=== PATIENT | male | born 1940 | race Caucasian/White ===

== ENCOUNTER → 2017-04-20 | Outpatient (CLI) | payer OTHER ==
[~2017-04-20] MED LIST: AMLO10CA PO; AMOX500C3 PO; ASCA500 PO; CRS/10 PO; CYCL10TA6 PO; IBUP-103 PO; MULT-267 PO; MULT-599 PO; NAPR1TAB9 PO; OMEGCAP2 PO; OXYC1TAB3 PO; SENNTAB23 PO
== END | disposition home or self-care (01) ==
LOC: C.RDSM 09:00
PROVIDERS: ATTEND Physical Medicine & Rehabilitation Sports Medicine
DX: M25.569 Pain in unspecified knee (principal)

== ENCOUNTER 2017-06-28 08:42 | Emergency (ER) | payer OTHER ==
[~2017-06-28] VITALS: Ht 177.8 cm; Wt 94.2 kg
[~2017-06-28 08:42] MED LIST changes: -AMOX500C3 PO; -ASCA500 PO; -CYCL10TA6 PO; -MULT-599 PO; -OXYC1TAB3 PO; -SENNTAB23 PO
[2017-06-28 08:45] VITALS: TEMP 36.5; Ht 177.8 cm; Wt 94.2 kg
[2017-06-28] MEDS ORDERED: KETOROLAC TROMETHAMINE 60 MG/2 ML VIAL IM STA (09:10)
[2017-06-28] MEDS ORDERED: HYDROmorphone INJ 1 MG/ML SYR IM STA (09:10)
[2017-06-28] MEDS ORDERED: ONDANSETRON 4MG OD TAB PO STA (09:10)
[2017-06-28] MEDS ORDERED: DIAZEPAM 5MG TAB PO ONE (09:15)
[2017-06-28] MEDS ORDERED: MULT-599 PO (09:39)
--- NOTE | 2017-06-28 10:22 | DIAGNOSTIC IMAGING REPORT ---
LUMBAR SPINE 5 VIEWS HISTORY: LOW BACK PAIN X 3 DAYS COMPARISON: None. FINDINGS: There is no fracture. No subluxation. There is a 6 mm stone within the lower pole the left kidney. Left total hip arthroplasty. The sacrum appears intact. Moderate to severe facet degenerative changes within the lumbar spine. Vertebral body heights are maintained. Severe disc space narrowing at L1-L2. Mild disc space narrowing at L2-L3 and moderate to space narrowing at L3-L4. Small endplate osteophytes within the lumbar spine. IMPRESSION: No fracture or subluxation within the lumbar spine. Degenerative changes as described above. Electronically signed by: Best Herman M.D. 06/28/2017 10:21 AM Dictated Date/Time: 06/28/2017 10:19 AM
[2017-06-28] MEDS ORDERED: OXYC1TAB3 PO (10:51)
[2017-06-28] MEDS ORDERED: CYCL10TA6 PO (10:51)
--- NOTE | 2017-06-28 10:51 | EMERGENCY ROOM VISIT NOTE ---
ED Visit Note First contact with patient: 08:54 CHIEF COMPLAINT: Low back pain 2 days HISTORY OF PRESENT ILLNESS: Patient is a 76-year-old white male who presents to the emergency department accompanied by his for evaluation of low back pain. His symptoms started 2 days ago, when he woke up with pain on Thursday. He has a history of his "back going out," and states that he sees a massage therapist and a chiropractor when this happens. He was seen by Dr. Joy, his chiropractor, that day, with a typical adjustment. He felt only slightly better after the appointment, and states that he rested for the remainder of the day. Yesterday when he woke up, his symptoms were worse, and he again went into see the chiropractor who adjusted him, and did some Obie. The patient reports that he has been taking Aleve, applied ice and heat per the chiropractor 's instructions, however his pain is worse this morning. He had leftover Mobic which she also took. He states the pain is located in the band across his entire low back, wrapping around to the hips slightly bilaterally. There is no pain into the buttock or groin, no numbness, tingling or weakness radiating down the legs. He denies any bowel or bladder incontinence. He has been golfing frequently, but denies any specific injury. He has not had any direct trauma to the back. He denies any nausea, vomiting or abdominal/flank pain or urinary symptoms. He rates his pain an 8/10. REVIEW OF SYSTEMS: Review of systems as per HPI. All other systems reviewed were negative. 10 systems reviewed. PMH: Electronic medical records are reviewed and summarized as above/below. See Problem List.. SOCIAL HISTORY: Patient lives at home with his . PHYSICAL EXAM: Vital Signs: Reviewed Nurse's notes. CONSTITUTIONAL: Patient is who is awake and alert and sitting on the edge gurney in mild distress due to their back pain. There is significant discomfort with position changes. NECK: Supple without lymphadenopathy. No thyromegaly. No meningeal signs. Full active range of motion without discomfort. CARDIOVASCULAR: Regular rate and rhythm, with normal S1 and S2, no murmur or gallop or rub is heard. No carotid bruits auscultated. No JVD. Peripheral pulses easily palpable. RESPIRATORY: Breath sounds equal and clear to auscultation without wheezes, rales, or rhonchi heard. Full and equal chest expansion without accessory muscle use or retractions. ABDOMEN: Bowel sounds are present. Abdomen is soft, nontender and nondistended. INTEGUMENTARY: No lesions or rash, normal skin turgor. LYMPH: No lymphadenopathy. SPINE: Examination of the patient's back does not demonstrate any ecchymosis, abrasions or outward signs of trauma. No erythema, increased warmth or induration. Patient has slight midline discomfort to palpation over the low lumbar spine, as well as over the bilateral paraspinous muscles. There is no pain over the SI joint or the sciatic notch. He has increased pain with range of motion including rotation and flexion. EXTREMITIES: Leg lengths are symmetrical. Negative logroll bilaterally. Normal strength including dorsi-flexion and plantar flexion of the great toes and ankles and flexion and extension of the knees and flexion of the hips. Negative bilateral straight leg raise testing. Lower extremity DTRs are equal and symmetrical bilaterally. Distal pulses are easily palpable. Sensation light touch is intact over the lower extremities bilaterally. EMERGENCY DEPARTMENT COURSE: The patient was seen and assessed as above. His old records were reviewed. He was medicated with 60 mg of Toradol and 1 mg of Dilaudid IM with Zofran 4 mg ODT and Valium 10 mg by mouth. Lumbar spine x- rays were obtained, which showed degenerative changes. No acute fracture or bony abnormality. On reassessment, the patient reported that he felt much improved. On reassessment at discharge he rated his pain a 2/10. Conservative care measures were discussed. The patient was encouraged to rest and avoid golf and any strenuous activity for the next couple of days. Continue ice and heat as instructed by the chiropractor. He was given oxycodone and Flexeril to use as needed, and was encouraged to continue an anti-inflammatory medicine. He has appointment with his chiropractor tomorrow and was encouraged to keep this for recheck. MEDICAL DECISION MAKING: I do not suspect acute compression syndrome, cauda equina, diskitis, epidural abscess, hematoma or neurovascular compromise. Patient was reviewed in the [facility] Prescription Drug Monitoring Program, and there were no red flags noted. Blood pressure screening: Patient was found to have a slightly elevated blood pressure due to circumstances. I do not believe that the patient requires hypertension monitoring. Medication reconciliation: I attest that I have personally reviewed the patient' s current medication list. LUMBAR SPINE 5 VIEWS HISTORY: LOW BACK PAIN X 3 DAYS COMPARISON: None. FINDINGS: There is no fracture. No subluxation. There is a 6 mm stone within the lower pole the left kidney. Left total hip arthroplasty. The sacrum appears intact. Moderate to severe facet degenerative changes within the lumbar spine. Vertebral body heights are maintained. Severe disc space narrowing at L1-L2. Mild disc space narrowing at L2-L3 and moderate to space narrowing at L3-L4. Small endplate osteophytes within the lumbar spine. IMPRESSION: No fracture or subluxation within the lumbar spine. Degenerative changes as described above. Problem List Medical Problems: (1) Abscess Status: Resolved (2) HTN (hypertension) Status: Chronic (3) Hyperlipidemia Nec/Nos Status: Chronic (4) Left shoulder pain Status: Resolved (5) Left shoulder pain Status: Resolved (6) PVC (premature ventricular contraction) Status: Resolved (7) PVC (premature ventricular contraction) Status: Resolved (8) Scrotal abscess Status: Resolved Surgical Problems: (1) Knee Joint Replacement Status Status: Resolved Current/Historical Medications Scheduled Amlodipine/Benazepril (Lotrel 10MG/20MG), 1 CAP PO DAILY Multiple Vitamins W/ Minerals (Mens 50+ Multi Vitamin &), 1 TAB PO DAILY [place]-3 Fatty Acids (Fish Oil), 1 CAP PO DAILY Rosuvastatin Calcium (Crestor), 10 MG PO Q2D Scheduled PRN Cyclobenzaprine Hcl (Flexeril), 10 MG PO TID PRN for Muscle Spasms Ibuprofen Tab (Advil), 200-400 MG PO Q6H PRN for Pain Naproxen (Aleve), 440 MG PO UD PRN for Pain Oxycodone Immediate Rel Tab (Roxicodone Ir), 1-2 TAB PO Q4H PRN for Severe Pain Allergies Coded Allergies: No Known Allergies (Verified , 06/28/17) Vital Signs Date Time Temp Pulse Resp B/P (MAP) Pulse Ox O2 Delivery O2 Flow Rate FiO2 06/28/17 11:03 90 16 150/92 93 06/28/17 08:45 36.5 60 20 163/92 98 Room Air Medications Administered Medications (Trade) Dose Ordered Sig/Yuan Route Start Time Stop Time Status Last Admin Dose Admin Ketorolac Tromethamine (Toradol Inj) 60 mg NOW STAT IM 06/28/17 09:10 06/28/17 09:12 DC 06/28/17 09:21 60 MG Hydromorphone HCl (Dilaudid Inj) 1 mg NOW STAT IM 06/28/17 09:10 06/28/17 09:12 DC 06/28/17 09:21 1 MG Ondansetron HCl (Zofran Odt) 4 mg NOW STAT PO 06/28/17 09:10 06/28/17 09:12 DC 06/28/17 09:20 4 MG Diazepam (Valium Tab) 10 mg NOW ONCE PO 06/28/17 09:15 06/28/17 09:16 DC 06/28/17 09:22 10 MG Departure Information Impression Primary Impression: Low back pain Prescriptions Oxycodone Immediate Rel Tab (ROXICODONE IR) 5 Mg Tab 1-2 TAB PO Q4H Y for Severe Pain, #20 TAB For Initial Treatment Prov: Concepción Stanley PA 06/28/17 Cyclobenzaprine Hcl (FLEXERIL) 10 Mg Tab 10 MG PO TID Y for Muscle Spasms, #30 TAB Prov: Conecpción Stanley PA 06/28/17 Referrals Ab Zee M.D. (PCP) Patient Instructions My [facility] Additional Instructions DO NOT drive, drink alcohol, operate machinery, or perform dangerous activities today. You were given medications in the ER that can affect your ability to safely function or operate a vehicle. Oxycodone (OxyIR) 5mg: Take 1-2 pills every four hours for breakthrough pain. Avoid alcohol, operating machinery or dangerous equipment, working on ladders or roofs, DRIVING, or situations where being under the influence may be dangerous. It is recommended to use an [id number] stool softener such as Colace, 100mg twice daily while taking this medication to avoid constipation. Cyclobenzaprine (Flexeril) 10 mg: Take 1 pills 3 times daily as needed for muscle spasms.. Avoid alcohol, operating machinery or dangerous equipment, working on ladders or roofs, DRIVING, or situations where being under the influence may be dangerous. Ibuprofen(Motrin, Advil) may be used for fever or pain. Use 600mg every six hours as needed. Take with food. Avoid using more than 2400mg in a 24 hour period. Do not use 2400mg per day for more than three consecutive days without physician direction. Prolonged inappropriate use can lead to stomach upset or ulcers. This medication can be taken if you need to drive, work, or perform activities which may be dangerous when taking narcotic pain medication. (AND/OR) Acetaminophen(Tylenol) may be used for fever or pain. Use 1000mg every six hours as needed. Avoid using more than 3000mg in a 24 hour period. This medication can be taken if you need to drive, work, or perform activities which may be dangerous when taking narcotic pain medication. Rest and avoid heavy lifting until your symptoms resolve and then gradually return to full activity. A good rule of thumb is if it hurts your back to perform a certain activity, then it should be avoided until you are healthy again. A heating pad, warm compresses, or a hot shower may help with tight muscles and can be done several times a day as needed. Continue current medications. Return to the ER immediately for any numbness, tingling, severe pain, loss of control of your bowels or bladder, inability to walk, or as needed. Follow up with your primary care physician within 3-5 days for a recheck of your current condition. Problem Qualifiers Primary Impression: Low back pain Chronicity: acute Back pain laterality: bilateral Sciatica presence: without sciatica Qualified Codes: M54.5 - Low back pain
[2017-06-28 11:03] VITALS: BP 150/92; PULSE 90; O2SAT 93
--- NOTE | 2017-06-28 15:12 | EMERGENCY ROOM VISIT NOTE ---
ED Visit Note First contact with patient: 08:54 I have personally seen and evaluated the patient with the PA. I agree with the diagnosis and management decisions and have been personally involved in the case. Please see Zelda Stanley PA-C's notes for further details of the history , physical and visit.
== END 2017-06-28 11:03 | disposition home or self-care (01) ==
LOC: C.EDB 08:44
DX: M54.5 Low back pain (principal); I10 Essential (primary) hypertension; E78.5 Hyperlipidemia, unspecified; Z79.899 Other long term (current) drug therapy

== ENCOUNTER → 2017-09-18 | Outpatient (CLI) | payer OTHER ==
[~2017-09-18] VITALS: Ht 177.8 cm; Wt 94.0 kg
[~2017-09-18] MED LIST changes: +AMOX500C3 PO; +ASCA500 PO; -MULT-267 PO; +MULT-599 PO; +OXYC-57 PO; +OXYC-737 PO; +SENNTAB23 PO; +WARF2TAB PO
[2017-09-18 09:06] VITALS: Ht 177.8 cm; Wt 94.0 kg
--- NOTE | 2017-09-18 09:41 | PAT Medication Instructions ---
Service Date Sep 18, 2017. Current Home Medication List Amlodipine/Benazepril (Lotrel 10MG/20MG), 1 CAP PO QAM Amoxicillin (Amoxil), 2,000 MG PO UD PRN for pre dental Ascorbic Acid (Vitamin C), 1 TAB PO QAM Multiple Vitamins W/ Minerals (Mens 50+ Multi Vitamin &), 1 TAB PO QAM [place]-3 Fatty Acids (Fish Oil), 1 CAP PO QAM Rosuvastatin Calcium (Crestor), 10 MG PO Q2D Sennosides-Docusate Sodium (Stool Softener), 1 TAB PO QAM Medication Instructions For Your Scheduled Surgery -Continue as directed: Amoxicillin (Amoxil), 2,000 MG PO UD PRN for pre dental - Hold the following medications 2 weeks prior to surgery (STOP TAKING ON 09/30) : [place]-3 Fatty Acids (Fish Oil), 1 CAP PO QAM - Hold the following medications the morning of surgery: Sennosides-Docusate Sodium (Stool Softener), 1 TAB PO QAM Ascorbic Acid (Vitamin C), 1 TAB PO QAM Multiple Vitamins W/ Minerals (Mens 50+ Multi Vitamin &), 1 TAB PO QAM Amlodipine/Benazepril (Lotrel 10MG/20MG), 1 CAP PO QAM - Take the following medications the morning of surgery with a sip of water: Rosuvastatin Calcium (Crestor), 10 MG PO Q2D If you have any questions please call us at [phone] or [phone] or [phone]
--- NOTE | 2017-09-18 10:52 | DIAGNOSTIC IMAGING REPORT ---
CHEST PREADMISSION(PA/LAT) CLINICAL HISTORY: PAT preoperative evaluation COMPARISON STUDY: 07/09/2014 FINDINGS: Increased tortuosity thoracic aorta. Chronic interstitial change bilaterally. No focal infiltrate. Diaphragms smooth. IMPRESSION: Chronic change. No acute process. The above report was generated using voice recognition software. It may contain grammatical, syntax or spelling errors. Electronically signed by: Frank Stein M.D. 09/18/2017 10:50 AM Dictated Date/Time: 09/18/2017 10:50 AM
[2017-09-18 11:19] LABS: PTT PATIENT 29.3 SECONDS (21.0-31.0)
== END | disposition home or self-care (01) ==
LOC: C.LAB 08:00 → EDSTATUS 10-14 07:00
PROVIDERS: ATTEND Physical Medicine & Rehabilitation Sports Medicine
DX: Z01.810 Encounter for preprocedural cardiovascular examination (principal); Z01.811 Encounter for preprocedural respiratory examination; Z01.812 Encounter for preprocedural laboratory examination; I44.0 Atrioventricular block, first degree

== ENCOUNTER → 2017-10-07 | Outpatient (CLI) | payer OTHER ==
[~2017-10-07] MED LIST changes: -IBUP-103 PO; -NAPR1TAB9 PO; -OXYC-57 PO; -OXYC-737 PO; -WARF2TAB PO
[2017-10-07 10:14] LABS: BLOOD UREA NITROGEN 22 mg/dl (7-18); BUN/CREATININE RATIO 24.9 (10-20); CALCIUM 9.1 mg/dl (8.5-10.1); CARBON DIOXIDE 27 mmol/L (21-32); CHLORIDE 106 mmol/L (98-107); CREATININE 0.88 mg/dl (0.60-1.40); GLUCOSE 110 mg/dl (70-99); POTASSIUM 3.5 mmol/L (3.5-5.1); SODIUM 140 mmol/L (136-145)
[2017-10-07 10:19] LABS: ALKALINE PHOSPHATASE 100 U/L (45-117); ALT/SGPT 34 U/L (12-78); AST/SGOT 22 U/L (15-37)
== END | disposition home or self-care (01) ==
LOC: C.LAB 07:18
PROVIDERS: ATTEND Urology
DX: N40.1 Benign prostatic hyperplasia with lower urinary tract symptoms (principal)

== ENCOUNTER → 2017-11-30 | Outpatient (CLI) | payer OTHER ==
[~2017-11-30] MED LIST changes: +OPTIRAY 320 IV PRN
--- NOTE | 2017-11-30 09:43 | DIAGNOSTIC IMAGING REPORT ---
CT UROGRAM CLINICAL HISTORY: Renal cyst. Microscopic hematuria. COMPARISON STUDY: Abdominal CT dated 07/09/2014. TECHNIQUE: Before and following the IV administration of 119 cc of Optiray 320, CT urogram of the abdomen and pelvis is performed from the lung bases to the proximal femora. Images are reviewed in the axial, sagittal, and coronal planes. IV contrast was administered without complication. A dose lowering technique was utilized adhering to the principles of ALARA. FINDINGS: Lung bases: The heart is mildly enlarged and without pericardial effusion. The coronary arteries are densely calcified. There is bibasilar scarring versus atelectasis. No airspace consolidation or pleural effusion is identified. A calcific granuloma seen at the right lung base. Liver: The contrast-enhanced liver is normal in size, contour, and attenuation. There is no intrahepatic biliary ductal dilatation. The hepatic veins and portal veins are patent. Small hepatic cysts measure up to 1.7 cm. Additional subcentimeter hepatic hypodensities also likely represent cysts but are too small for definitive characterization. Gallbladder: Unremarkable. Spleen: Normal in size and attenuation. Pancreas: Unremarkable. Adrenal glands: Unremarkable. Kidneys and ureters: The contrast enhanced kidneys demonstrate mild cortical atrophy and are without hydronephrosis. There are least 3 nonobstructing right renal calculi measuring up to 2 mm. A 9 mm nonobstructing calculi is present in the interpolar left kidney. The kidneys enhance symmetrically. There is a large extrarenal pelvis on the left with slightly delayed excretion from the left kidney. There are numerous bilateral simple renal cysts which measure up to 4.8 cm. Additional subcentimeter cortical hypodensities also likely represent cysts but are too small for definitive characterization. There is no enhancing renal cortical mass lesion identified. There is no evidence of urothelial lesion in the right renal pelvis. There are small filling defects identified in the left renal pelvis, best seen on axial image #155. This suggests debris. There is no evidence of urothelial lesion involving the ureters. Note that the left ureter was not well opacified. Abdominal vasculature: The abdominal aorta is normal in course and caliber noting moderate to advanced atherosclerotic calcification. Bowel: There is moderate colonic diverticulosis without CT evidence of acute diverticulitis. No bowel obstruction is seen. The appendix is well-visualized and normal. Peritoneum: There is no intraperitoneal free air or abdominal ascites. There is a tiny fat-containing umbilical hernia. Lymphadenopathy: None. Pelvic viscera: Evaluation of the pelvis is degraded by streak artifact from a left hip arthroplasty. The prostate gland appears diminutive and heterogeneous. There is median lobe hypertrophy. The bladder wall is thickened and trabeculated suggesting chronic outlet obstruction. A punctate bladder calculus is suggested on image #380. Skeletal structures: The skeletal structures are osteopenic. No lytic or blastic lesions are seen. There is moderate lumbosacral spondylosis. A left hip arthroplasty is in place. IMPRESSION: 1. The kidneys demonstrate mild cortical atrophy and are without hydronephrosis. 2. There are bilateral nonobstructing renal calculi. 3. There is mild fullness of the left renal collecting system and a left-sided extrarenal pelvis. A calculus is identified in the bladder. These findings are nonspecific but may represent the sequelae of a recently passed kidney stone. Clinical correlation will be required. 4. No enhancing renal cortical mass is identified. 5. There are small filling defects within the left renal pelvis. This is nonspecific but likely represents debris/blood clots. A urothelial lesion is considered much less likely. A precautionary 3 month follow-up urogram is recommended for reassessment. 6. There is moderate colonic diverticulosis without CT evidence of acute diverticulitis. 7. There are numerous bilateral renal cysts. 8. There is median lobe hypertrophy of the prostate gland. The appearance of the bladder suggests chronic outlet obstruction. 9. Additional findings as above. Electronically signed by: Niraj Sheridan M.D. 11/30/2017 9:41 AM Dictated Date/Time: 11/30/2017 9:25 AM
== END | disposition home or self-care (01) ==
LOC: C.CTS 08:36
PROVIDERS: ATTEND Urology
DX: N28.1 Cyst of kidney, acquired (principal); R31.29 Other microscopic hematuria

== ENCOUNTER 2017-12-30 06:03 | Inpatient (IN) | payer OTHER ==
[2017-12-10 07:25] VITALS: Ht 177.8 cm; Wt 94.0 kg
[2017-12-11 12:06] LABS: BASO % 0.4 %; BASO ABS # 0.04 K/uL (0-0.2); EOS % 3.5 %; EOS ABS # 0.33 K/uL (0-0.5); HEMATOCRIT 42.1 % (42-52); HEMOGLOBIN 14.4 g/dL (14.0-18.0); IG# 0.03 K/uL (0.00-0.02); LYMPH % 21.6 %; LYMPH ABS # 2.02 K/uL (1.2-3.4); MEAN CELL VOLUME 88.8 fL (80-100); MEAN CORPUSCULAR HEMOGLOBIN 30.4 pg (25-34); MEAN CORPUSCULAR HGB CONC 34.2 g/dl (32-36); MEAN PLATELET VOLUME 9.7 fL (7.4-10.4); MONO % 10.4 %; MONO ABS # 0.97 K/uL (0.11-0.59); NEUT % 63.8 %; NEUT ABS # 5.96 K/uL (1.4-6.5); PLATELET COUNT 309 K/uL (130-400); RED CELL DISTRIBUTION WIDTH CV 14.8 % (11.5-14.5); RED CELL DISTRIBUTION WIDTH SD 48.1 fL (36.4-46.3); WHITE BLOOD COUNT 9.35 K/uL (4.8-10.8)
[2017-12-11 12:16] LABS: PTT PATIENT 25.6 SECONDS (21.0-31.0)
[2017-12-11 12:21] LABS: CALCIUM 9.6 mg/dl (8.5-10.1); CREATININE 0.88 mg/dl (0.60-1.40); POTASSIUM 3.8 mmol/L (3.5-5.1)
--- NOTE | 2017-12-14 16:00 | HISTORY & PHYSICAL EXAMINATION ---
DATE OF ADMISSION: 12/30/2017 CHIEF COMPLAINT: Right knee pain. HISTORY OF PRESENT ILLNESS: This 77-year-old white male presents to the office with complaints of right knee pain that has been ongoing since 2008. The patient had a previous right knee total knee arthroplasty and had a revision in 2008. He states that there has been persisting right knee instability and pain since then. He has never felt well since the revision. He has tried bracing, physical therapy and nonsteroidal anti-inflammatories without improvement. His main complaint is buckling and swelling. No numbness or tingling. He denies any history of infection. No fevers or chills. No weight loss. Radiographic imaging has been obtained. He elects to proceed with right total knee revision in hopes of alleviating his discomfort. Pain is worse with weightbearing and he is having difficulty with his ADLs. PAST MEDICAL HISTORY: Significant for elevated cholesterol, hypertension, rheumatoid arthritis and kidney stones. PREVIOUS SURGERIES: Left total hip replacement in 2009, bilateral total knee arthroplasties in 1995, left revision TKA in 2007, and right knee revision TKA in 2008. SOCIAL HISTORY: The patient smokes a pack of cigarettes daily for the last 60 years. Occasional ETOH use. . Retired. FAMILY HISTORY: Noncontributory. ALLERGIES: NKDA. CURRENT MEDICATIONS: Amlodipine/benazepril 10 mg/20 mg p.o. daily, amoxicillin before dental visits, and Crestor 10 mg p.o. daily. REVIEW OF SYSTEMS: Significant for above stated conditions. Otherwise, unremarkable. PHYSICAL EXAMINATION: GENERAL: Well-developed and well-nourished elderly white male in no acute distress. Sitting in a chair. Alert and oriented. SKIN: Warm and dry with good turgor. No rashes or lesions. No ecchymosis or erythema. No intraarticular effusion today. HEENT: Normocephalic and atraumatic. Eyes PERRLA, EOMI. Nares patent bilaterally without turbinate enlargement. Oropharynx is without erythema or exudate. No lesions noted. Uvula midline. Oral mucosa moist. Fair dentition. Dental bridges are noted. HEART: RRR. 3/6 systolic ejection murmur noted. No gallops or rubs. LUNGS: Clear to auscultation bilaterally. No crackles, rhonchi or wheezing. Good air movement. ABDOMEN: Bowel sounds present x4. Soft and nontender. No organomegaly. No masses. MUSCULOSKELETAL: Right knee has no intraarticular effusion today. There is neutral alignment. Full terminal extension. Flexion to greater than 125 degrees. Hypermobility with collateral ligament stressing. No defect in the patellar tendon or quadriceps tendon. NEUROLOGIC: Cranial nerves II through XII are intact. Gross sensation is intact across the right lower extremity by soft touch. Peripheral pulses are 2+. DATA: Radiographic images previously obtained shows no evidence of loosening. IMPRESSION: Right knee TKA instability. PLAN: The patient was educated regarding today's findings. Conservative care measures were discussed. He previously had a right knee aspiration and cultures were negative. Preoperative lab work, EKG, and chest x-ray have been ordered. Medical clearance has been requested from his PCP. His previous hematuria has resolved. He already has a walker. Anticipate discharge to home with home health services after surgery.
[2017-12-30] VITALS (7 sets, daily range): BP systolic 140–165; BP diastolic 81–89; PULSE 57–64; TEMP 36.6–37.4; O2SAT 93–96
[~2017-12-30] VITALS: Ht 177.8 cm; Wt 94.0 kg
[~2017-12-30 06:03] MED LIST changes: +CEFAZOLIN 2000MG IV PUSH 15 ML IV SCH; +LACTATED RINGER'S 1000ML 1,000 ML IV SCH; +LACTATED RINGER'S 1000ML 500 ML IV SCH; +LACTATED RINGER'S 1000ML IV SCH; -OMEGCAP2 PO; -OPTIRAY 320 IV PRN; +ROPIVACAINE 5MG/ML 30 ML 150 MG, BUPIVACAINE/EPINEPHR 0.5% MPF 30 ML, KETOROLAC TROMETH... INFIL SCH; +TRANEXAMIC ACID INJ 1,000 MG x 1 Bag Preop IV SCH
--- NOTE | 2017-12-30 06:25 | History & Physical Bridge Note ---
H&P Re-Evaluation Bridge Note: I have examined the patient, reviewed the History & Physical and in the interval since the performance of the History & Physical I have noted the following changes of clinical significance: consent obtained.No changes noted
[2017-12-30] MEDS ORDERED: ROPIVACAINE 0.5% 5 MG/ML 30 ML VIAL ONE (06:35)
[2017-12-30] MEDS ORDERED: BUPIVACAINE 0.5 % 5 MG/1 ML PF 10ML VIAL ONE (06:35)
[2017-12-30] MEDS ORDERED: MIDAZOLAM HCL 1 MG/ML 2ML VIAL ONE (08:10)
[2017-12-30] MEDS ORDERED: ORTHO JOINT ANESTHETIC ONE (08:41)
[2017-12-30] MEDS ORDERED: POVIDONE-IODINE OP SOLN 30 ML BTL ONE (08:42)
[2017-12-30] MEDS ORDERED: ROSUVASTATIN CALCIUM 10 MG TAB PO SCH (09:00)
[2017-12-30] MEDS ORDERED: ATROPINE SULFATE 0.1 MG/ML 5ML SYR IV PRN ×2 (09:00)
[2017-12-30] MEDS ORDERED: EpHEDrine SULFATE INJ 50 MG/ML AMP IV PRN ×2 (09:00)
[2017-12-30] MEDS ORDERED: ONDANSETRON INJ 2 MG/ML 2 ML VIAL IV PRN ×3 (09:00→12:00)
[2017-12-30] MEDS ORDERED: HYDROmorphone INJ 2 MG/ML SYR/VIAL IV PRN ×2 (09:00)
[2017-12-30] MEDS ORDERED: PHENYLEPHRINE 100MCG/ML 5ML SYR IV PRN ×2 (09:00)
[2017-12-30] MEDS ORDERED: LIDOCAINE HCL 2% 2 ML VIAL (20MG/ML) ONE (09:23)
[2017-12-30] MEDS ORDERED: PROPOFOL IV EMULSION 10 MG/ML 20 ML VIAL IV ONE ×3 (09:23→09:54)
--- NOTE | 2017-12-30 11:36 | [facility] Post Operative Brief Note ---
Immediate Operative Summary Operative Date Dec 30, 2017. Pre-Operative Diagnosis Right Total Knee Arthroplasty Instability Post-Operative Diagnosis Right Total Knee Arthroplasty Instability/loose patellar button Procedure(s) Performed Right Knee: Arthrotomy, Revsion of Broken Poly and Revsion of Loose Patella Button Surgeon Dr. Hodges Director Of Surgery Surgeon(s) SALIMA Daley Estimated Blood Loss 50ml Findings Consistent with Post-Op Diagnosis Fluids (cc crystalloids) 1700cc Specimens Culture--Right Knee Synovium--For gram stain, routine culture and sensitivity, aerobes and anaerobes--sent to lab at 0940 A. Removed Hardware Right Knee (Poly and Patella) Drains None Anesthesia Type MAC Spinal Regional Complication(s) none Disposition Accompanied Pt To Recover: no Disposition: Recovery Room / PACU
--- NOTE | 2017-12-30 11:57 | [facility] Operative Report ---
Operative Report Operative Date Dec 30, 2017. Pre-Operative Diagnosis Right Total Knee Arthroplasty Instability Post-Operative Diagnosis Right Total Knee Arthroplasty Instability/loose patellar button Procedure(s) Performed Right Knee: Arthrotomy, Revsion of Broken Poly and Revsion of Loose Patella Button Surgeon Dr. Hodges Android Framework Developer Surgeon(s) SALIMA Gong Estimated Blood Loss 50ml Findings right knee broken tibial poly and loose patellar button Fluids 1700cc Specimens Culture--Right Knee Synovium--For gram stain, routine culture and sensitivity, aerobes and anaerobes--sent to lab at 0940 A. Removed Hardware Right Knee (Poly and Patella) Drains None Anesthesia Type MAC Spinal Regional Complication(s) none Disposition no Recovery Room / PACU Indications This 77-year-old white male presented to the office with complaints of right knee pain and instability for the last 8-9 years. He had a previous right total knee revision in 2008. He states he has been symptomatic since then. He elected to proceed with surgical intervention in hopes of alleviating his pain and instability. Reoperative imaging has been obtained. Description of Procedure Patient was administered a spinal anesthetic and then taken to the operating room where he was given sedation. He was prepped and draped in usual sterile fashion. Please see Dr. Hodges's operative report for specifics of the procedure. I was present for the entire case from initial patient positioning through final wound closure. Assistance was provided in tissue traction, hemostasis, trial implant placement, final implant placement, and final wound closure. Patient was taken to the recovery room in satisfactory condition. I attest to the content of the Intraoperative Record and any orders documented therein. Any exceptions are noted below.
[2017-12-30] MEDS ORDERED: ACETAMINOPHEN IV 100 ML IV PRN (12:00)
[2017-12-30] MEDS ORDERED: OXYCODONE HCL IR 5 MG TAB (IMMEDIATE RELEASE) PO PRN (12:00)
[2017-12-30] MEDS ORDERED: BISACODYL 10 MG SUPP PR PRN (12:00)
[2017-12-30] MEDS ORDERED: METOCLOPRAMIDE HCL INJ 5 MG/ML 2 ML VIAL IV PRN (12:00)
[2017-12-30] MEDS ORDERED: MoRPHine SULFATE 2 MG/ML CARP IV PRN (12:00)
[2017-12-30] MEDS ORDERED: ACETAMINOPHEN 325 MG TAB PO PRN (12:00)
[2017-12-30] MEDS ORDERED: DiphenhydrAMINE HCL 50 MG/ML VIAL IV PRN (12:00)
[2017-12-30] MEDS ORDERED: TAMSULOSIN HCL 0.4 MG CAP PO PRN (12:00)
[2017-12-30] MEDS ORDERED: ALUMINUM/MAGNESIUM/SIMETH (MAALOX MAX) 30 ML UDC PO PRN (12:00)
[2017-12-30] MEDS ORDERED: MAGNESIUM HYDROXIDE SUSP 30 ML UDC PO PRN (12:00)
--- NOTE | 2017-12-30 12:17 | OPERATIVE REPORT ---
DATE OF OPERATION: 12/30/2017 SURGEON: Dr. Hodges. DEWER: Dr. Gandhi. 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 PREOPERATIVE DIAGNOSES: 1. A loose patellar button. 2. Broken poly with hyperextensibility of the knee. A mid range instability. OPERATIONS PERFORMED: 1. Exam under anesthesia. 2. Arthrotomy with synovectomy appropriate soft tissue releases and removal of patellar button. 3. Removal of broken poly. 4. Revision poly with 22 x 79/83 Vanguard 360 constrained PS 5. Patellar reconstruction with Simin, TM augmented patella, large 62 x 20. PERIOPERATIVE SITUATION: Medically cleared male with intractable knee giving way and pain who presents to the office with work up including intraarticular culture, Synovasure, all that was negative. He originally was scheduled for surgery in September; however, had to cancel due to kidney stone. At this point in time, there is no change in the clinical appearance. DESCRIPTION OF PROCEDURE: The patient appropriately identified, site verified, consent verified, 2 grams of Ancef confirmed as being given. TXA confirmed as being given. The right lower extremity was prepped and draped in usual routine fashion. There was 20 degrees of hyperextendability. Tourniquet was inflated to 300 mmHg for a total of approximately 45 minutes. Midline exposure utilized. Parapatellar arthrotomy performed. Soft tissue release performed. Medially encountered was a loose patella, this was excised as well as cement. When the synovectomy was completed, the knee flexed, care taken to protect the extensor mechanism, and the poly was removed carefully. It should be mentioned that the poly post was broken that was retrieved first and then the locking pin removed and then the poly removed. The wound was then irrigated. The femoral and tibial components were solid. The tibial trials were then carried out with a 22 thick constrained PS was fitting very well that permanent liner was then seated. The knee was reduced. It should be mentioned that the locking mechanism engaged well. The patella was then prepared for a reconstruction with the Simin TM augment to patella. It required that it to be transported to the hospital but during transport everything was prepared, so there was minimal of about 25 minutes from when things were finally ready to be implanted. The sutures were placed transosseous of the eggshell of the patella, all 6 sutures after all the fibrous tissue and cement were removed. The area irrigated and a 20 x 62 fit very well as a trial. The permanent was then seated and then tied with opposite sutures being tied sequentially, tying the titanium mesh to the patella nicely. The sutures were then cut and following this, the button was cemented in and after 14 minutes the knee irrigated and range of motion, everything tracked well. There was no looseness to the implant. The hyperextendability was gone, went basically 0. Range of motion was 0-95-100 degrees easily. The wound was irrigated with Betadine/pulsavac multiple times during the procedure once again prior to closure and then using #2 Vicryl, the capsule was closed, 2-0 Vicryl for the subcutaneous layer and stainless steel clips for skin. ESTIMATED BLOOD LOSS: 75 mL. CRYSTALLOID: 1700 mL. DVT prophylaxis will be with Coumadin. IMPLANTS USED: Again, the implant was a poly 22 x 79/83 Vanguard 360 constrained posterior stabilized and a patella Simin TM augmented patella large 62 x 20. One bag of Palacos G cement. I attest to the content of the Intraoperative Record and any orders documented therein. Any exceptions are noted below. MTDD
--- NOTE | 2017-12-30 12:19 | Anesthesiology Progress Note ---
Anesthesia Post Op Note Date & Time Dec 30, 2017 at 12:18 Vital Signs Pain Intensity: 0 Vital Signs Past 12 Hours Date Time Temp Pulse Resp B/P (MAP) Pulse Ox O2 Delivery O2 Flow Rate FiO2 12/30/17 12:15 36.2 54 16 146/90 100 Nasal Cannula 2 12/30/17 12:05 54 16 127/84 100 Nasal Cannula 2 12/30/17 11:55 58 16 131/83 100 Oxymask 10 12/30/17 11:47 36.3 56 16 137/109 97 Oxymask 10 12/30/17 08:56 61 16 157/86 (109) 100 Mask 10 12/30/17 06:57 36.8 63 18 157/84 93 Room Air Notes Mental Status: alert / awake / arousable, participated in evaluation Pt Amnestic to Procedure: Yes Nausea / Vomiting: adequately controlled Pain: adequately controlled Airway Patency, RR, SpO2: stable & adequate BP & HR: stable & adequate Hydration State: stable & adequate Neuraxial Anesthesia: was administered, sensory block is resolving Anesthetic Complications: no major complications apparent
--- NOTE | 2017-12-30 12:32 | DIAGNOSTIC IMAGING REPORT ---
RIGHT KNEE 2 VIEWS History:. Degenerative arthritis. Postop. FINDINGS: The patient is status placement of a patellar prosthesis. There is again noted a right total knee arthroplasty. The hardware appears intact.. The hardware is intact. No fracture or dislocation. Skin bonnie are in place. IMPRESSION: Status post placement of a patellar prosthesis. No evidence for hardware complication. Electronically signed by: Best Herman M.D. 12/30/2017 12:30 PM Dictated Date/Time: 12/30/2017 12:28 PM
--- NOTE | 2017-12-30 12:33 | PROGRESS NOTE ---
DATE: 12/30/2017 SUBJECTIVE: Postop check status post revision poly and revision patellar button with metal mesh system for loose implants and fracture poly of his right lower extremity total knee replacement. At this point in time, the patient is comfortable. His spinal is starting to wear off. He states he can feel his feet. Denies chest pain, shortness of breath, fever, chills, nausea, vomiting or headache. Vital signs are stable; he is afebrile. Neurovascular check reveals intact motor function, extension and flexion of the toes and ankle. Slight quad function. The wound dressing clean, dry and intact. Sensation is tingly and wearing off, improving nicely as expected. IMAGING DATA: Postop x-rays, AP and lateral knee reveals excellent change of the systems. The knee is not hyperextendable at this point in time. The mesh patella system is encased in the patella. ASSESSMENT AND PLAN: Doing well status post revision poly with a semi-constrained liner and increased thickness, decreasing hyperextensibility of fracture poly and revision of patellar button based on the fact that it was completely loose with fractured cement and lifted out manually. There was a shell of bone required special implant. Deep venous thrombosis prophylaxis with Coumadin. Mobilize to tolerance. MTDD
--- NOTE | 2017-12-30 13:24 | Anesthesiology Progress Note ---
Anesthesia Post Op Note Date & Time Dec 30, 2017 at 13:24 Vital Signs Pain Intensity: 0 Vital Signs Past 12 Hours Date Time Temp Pulse Resp B/P (MAP) Pulse Ox O2 Delivery O2 Flow Rate FiO2 12/30/17 13:15 63 17 163/89 97 Nasal Cannula 2 12/30/17 13:00 59 14 153/92 97 Nasal Cannula 2 12/30/17 12:46 54 17 169/97 98 Nasal Cannula 2 12/30/17 12:35 56 16 142/83 99 Nasal Cannula 2 12/30/17 12:25 36.2 54 16 156/90 100 Nasal Cannula 2 12/30/17 12:15 36.2 54 16 146/90 100 Nasal Cannula 2 12/30/17 12:05 54 16 127/84 100 Nasal Cannula 2 12/30/17 11:55 58 16 131/83 100 Oxymask 10 12/30/17 11:47 36.3 56 16 137/109 97 Oxymask 10 12/30/17 08:56 61 16 157/86 (109) 100 Mask 10 12/30/17 06:57 36.8 63 18 157/84 93 Room Air Notes Mental Status: alert / awake / arousable, participated in evaluation Pt Amnestic to Procedure: Yes Nausea / Vomiting: adequately controlled Pain: adequately controlled Airway Patency, RR, SpO2: stable & adequate BP & HR: stable & adequate Hydration State: stable & adequate Anesthetic Complications: no major complications apparent
[2017-12-30] MEDS ORDERED: MoRPHine SULFATE 4 MG/ML 1 ML CARP\\VIAL IV PRN (14:45)
[2017-12-30] MEDS ORDERED: D5W AND 1/2NSS + 20MEQ KCL 1,000 ML IV SCH (15:00)
[2017-12-30] MEDS: KETOROLAC TROMETHAMINE 15 MG/ML VIAL IV. SCH ×2 (15:38→21:57)
[2017-12-30] MEDS ORDERED: WARFARIN SOD 5 MG TAB PO ONE (17:00)
[2017-12-30] MEDS: CEFAZOLIN IV 2,000 MG in SYRINGE 0 ML IV SCH (17:18)
[2017-12-30] MEDS: FERROUS GLUCONATE 324 MG TAB PO SCH (17:19)
[2017-12-30] MEDS ORDERED: TRANEXAMIC ACID INJ 1,000 MG in SODIUM CHLORIDE 0.9% 100ML 100 ML IV SCH (18:00)
[2017-12-30] MEDS: DOCUSATE SODIUM 100 MG CAP PO SCH (21:57)
[2017-12-31] MEDS: CEFAZOLIN IV 2,000 MG in SYRINGE 0 ML IV SCH (01:10)
[2017-12-31 03:37] VITALS: BP 149/82; PULSE 70; TEMP 36.7; O2SAT 93
[2017-12-31] MEDS: KETOROLAC TROMETHAMINE 15 MG/ML VIAL IV. SCH ×2 (03:56→10:30)
--- NOTE | 2017-12-31 06:46 | PROGRESS NOTE ---
DATE: 12/31/2017 Postop day #1 status post revision/reconstruction right patella and exchange poly right total knee replacement for instability and poly wear. The patient is doing well, has no major issues. Vital signs are stable. He is afebrile. Neurovascular check is intact femoral sciatic nerve. Can do a straight leg raise. Dressing clean, dry and intact. A.m. labs are pending. ASSESSMENT: Overall doing well. Discharge today after PT/OT. Discharge on 4 mg Coumadin if INR is less than 1.5, and if it is 1.6 or greater, 2 mg. Follow up in 2 weeks for staple removal. Go slow with flexion based on the fact that this is the third time in that knee.
--- NOTE | 2017-12-31 06:51 | DISCHARGE SUMMARY ---
DATE OF DISCHARGE: 12/31/2017 CHIEF COMPLAINT: Right knee pain. HISTORY OF PRESENT ILLNESS: The patient underwent elective revision right total knee poly exchange and revision of patellar loose button. Hospital course has been uneventful. PAST MEDICAL HISTORY: Remarkable for elevated cholesterol, hypertension, rheumatoid arthritis, kidney stones. PREVIOUS SURGERIES: Include hip replacement in 2009, bilateral knee arthroplasties in 1995, revision on the left in 2007, revision on the right in 2008. SOCIAL HISTORY: Reveals that he smokes daily. Occasional alcohol use. , retired. FAMILY HISTORY: Noncontributory. ALLERGIES: None. PREADMISSION MEDICATIONS: Include amlodipine, benazepril, Crestor, dental prophylaxis for total joint replacements. He will be discharged on Coumadin, keep INR 1.8 to 2.2; 4 mg if INR is 1.5 or less and 2 mg if INR is 1.6 or more on discharge. Check INR on Thursday. REVIEW OF SYSTEMS: Noncontributory. ASSESSMENT: Overall doing well status post revision procedure for failed poly and loose patellar button right total knee replacement. Follow up in 2 weeks for wound check and staple removal.
[2017-12-31 07:00] VITALS: BP 149/83; PULSE 58; TEMP 36.7; O2SAT 96
[2017-12-31 07:06] LABS: HEMATOCRIT 35.5 % (42-52); HEMOGLOBIN 12.2 g/dL (14.0-18.0); MEAN CELL VOLUME 87.4 fL (80-100); MEAN CORPUSCULAR HGB CONC 34.4 g/dl (32-36); MEAN PLATELET VOLUME 9.5 fL (7.4-10.4); PLATELET COUNT 263 K/uL (130-400); RED CELL DISTRIBUTION WIDTH CV 14.3 % (11.5-14.5); RED CELL DISTRIBUTION WIDTH SD 45.7 fL (36.4-46.3); WHITE BLOOD COUNT 13.75 K/uL (4.8-10.8)
[2017-12-31] MEDS ORDERED: DEXAMETHASONE INJ 10 MG in SYRINGE 0 ML IV SCH (07:30)
[2017-12-31 07:40] LABS: CALCIUM 8.5 mg/dl (8.5-10.1); CREATININE 0.83 mg/dl (0.60-1.40); POTASSIUM 3.4 mmol/L (3.5-5.1)
[2017-12-31] MEDS ORDERED: OXYC-57 PO (07:43)
[2017-12-31] MEDS ORDERED: WARF2TAB PO (07:43)
--- NOTE | 2017-12-31 07:46 | Discharge Instructions ---
Discharge Instructions Date of Service Dec 31, 2017. Admission Reason for Admission: Right Knee Instability Discharge Discharge Diagnosis / Problem: Right knee s/p poly liner exchange and patellar button revision Discharge Goals Goal(s): Decrease discomfort, Improve function, Increase independence Activity Recommendations Activity Limitations: as noted below Lifting Limitations: gradually increase as tolerated Exercise/Sports Limitations: until after follow-up appointment Shower/Bathe: keep incision dry Driving or Machine Use: No driving until cleared by Dr. Hodges Weightbearing Status: Right weightbearing (as tolerated) . Instructions / Follow-Up Instructions / Follow-Up New Medicine: * You will likely be taking one or more of these medications: 1. Percocet - Take, as directed, when you need it, every four to six hours to control your pain. 2. Coumadin - Thins your blood to lessen the chance of forming a blood clot. The dose of this is different for each person and is based on your blood tests that are done twice a week. * The most common side effects of pain medicine and iron are nausea and constipation. If nausea or constipation is too much of a problem or if you have any questions about your new medicines or doses, call [facility] at . We will try to help you manage these issues. VERY IMPORTANT TO READ AND REVIEW" Blood Clots and Blood Thinning Medicine: * You are given Coumadin during the immediate post-operative period to lessen the risk of blood clots forming in your legs and/or lungs. Coumadin is usually given for six weeks after surgery. * The prescription is for 2 mg tablets. At discharge, you should understand your dose and take it all at the same time every day, preferably after dinner. * You need to get your blood checked 1 - 2 times per week for six weeks or as directed. * If your dose needs to change, we will call you. Do not take your medication on the day of the blood test until we call you. Pain: * The immediate post-operative period after knee replacement surgery is often quite painful. * You are given a prescription for pain medicine. You should take it, as directed, when you need it, especially before physical therapy and before going to bed. Pain that interferes with sleep is very common and can last several months. * You will likely need pain medicine for the first four to six weeks. It will not stop all of the pain. The pain will lessen and as you feel better, you may change to milder pain medicine such as Tylenol. * The most common side effects of pain medicine are nausea and constipation, so don't take more than you need. Physical Therapy: * You will have physical therapy two or three times each week for four to six weeks after your surgery in order to regain your knee range of motion and to retrain your knee to work properly. * It is just as important to make sure you are getting your knee perfectly straight as it is to regain your knee bend. * Taking a pain pill an hour before therapy can help you have a more productive and comfortable therapy session if needed. Home Exercise: * You were shown a series of exercises (heel props, heel slides, etc.) in the hospital. Do these exercises three to four times each day including the exercises you were shown in physical therapy. Walking: * Get up and walk several times each day. For the first four weeks, try not to stand or walk for more than one hour at a time. If you do stand or walk for more than one hour, you will not hurt anything, but your knee and leg will likely swell. * As you feel comfortable, you may change from the walker or crutches to a cane and then to independent walking. SELF CARE INSTRUCTIONS AFTER TOTAL KNEE REPLACEMENT A. You may need to continue a physical therapy program after discharge from the hospital. There are several options available to you. Your doctor will assist you in selecting the best one for you. 1. An out-patient facility 2 to 3 times a week for therapy or home therapy. 2. Continue working on all exercises taught to you in the hospital. Your goals should be to increase bending of your knee to 90 degrees and beyond and to fully straighten your knee. B. You may progress at your own pace from walking with a walker or crutches to a cane; then to no assistive devices. C. Make walking a part of your daily routine. Be up as much as comfortable with rest periods throughout the day. Rest with leg elevation is very important. Use the ice wrap frequently for the first 3-4 weeks. D. There are no restrictions on activities. You may ride in a car, shop, participate in supervisor laundry and all social activities. E. Wear the long elastic stockings (JOELLE hose) 20 hours a day for six weeks after surgery. They can be removed several times a day for laundering and for a shower. F. Do not place a pillow behind your knee when resting. A pillow at your ankle is okay. VERY IMPORTANT TO READ AND REVIEW A. Take Coumadin, Aspirin or Lovenox (blood thinning medications) as directed by your doctor. If on Coumadin, have a pro-time (blood test) drawn according to your doctor's instructions. This will tell the doctor how well the Coumadin is thinning your blood. 1. YOU WILL BE GIVEN AN ORDER AT DISCHARGE FOR PT/INR (BLOOD WORK). PLEASE HAVE THIS DONE INSTRUCTED. PLEASE CALL OUR OFFICE AFTER YOUR BLOODWORK IS COMPLETE SO WE CAN TRACK YOUR RESULTS. IF YOU ARE GOING TO OUTPATIENT PHYSICAL THERAPY, YOU WILL NEED TO GO TO OUTPATIENT TESTING TO HAVE IT DRAWN. B. There are a few signs you need to watch for after you are home. Call [facility] if you notice any of the followin. Increased severe knee pain. Some pain is expected especially when you exercise. 2. Increased swelling in your leg or knee; pain or swelling of the calf muscle in either lower leg. 3. Any fluid drainage from the incision. 4. Shortness of breath or chest pain. C. Please call [facility] at if you have any concerns or questions about your operation or recovery. The doctor or his nurse will return your call promptly. D. You must take antibiotics before dental work, bladder, bowel or other surgery. Call the office to obtain a prescription at least 2 days prior to your appointment. * CALL IF INCREASED PAIN, REDNESS, DRAINAGE OR FEVER GREATER THAT 101. * Sutures should be removed 12-14 days after surgery unless you are on chronic steriods, then it will be 14-18 days after surgery. Call your doctor if: * Temperature above 101 degrees F. * Pain not relieved by pain medicine ordered. * Increased drainage or redness from incision. * Notify your doctor with any questions or concerns. Current Hospital Diet Patient's current hospital diet: AHA Diet (Heart Healthy) Discharge Diet Recommended Diet: AHA Diet (Heart Healthy) Procedures Procedures Performed: Right Knee: Arthrotomy, Revsion of Broken Poly and Revsion of Loose Patella Button Pending Studies Studies pending at discharge: yes List of pending studies: tissue culture Medical Emergencies . Who to Call and When: Medical Emergencies: If at any time you feel your situation is an emergency, please call 911 immediately. . Non-Emergent Contact Non-Emergency issues call your: Primary Care Provider, Surgeon Call Non-Emergent contact if: temperature is above 101, wound has increased drainage, wound has increased redness, wound has increased pain, you have any medication questions . "Provider Documentation" section prepared by Donal Gandhi PA-C. . VTE Core Measure Inpt VTE Proph given/why not?: Warfarin (Coumadin), T.E.D. Stockings, SCD's [place] Drug Monitoring Program Search Results: no issues identified
--- NOTE | 2017-12-31 07:50 | Orthopedic Progress Note ---
Orthopedic Progress Note Date of Service Dec 31, 2017. Subjective Post OP Day: 1 Reports: feeling well, pain controlled w PO medications, Denies: complaints, chest pain, SOB, nausea / vomiting, light headedness, calf pain Additional Notes: states he feels well, has no pain. Objective calves soft nontender, N/V intact, capillary refill less than 2 sec., dressing C /D/I, incision C/D/I, A&O x3, toes mobile, CMS intact minimal dry drainage on bandages, no active bleeding. He is able to do SLR. Date Time Temp Pulse Resp B/P (MAP) Pulse Ox O2 Delivery O2 Flow Rate FiO2 12/31/17 07:00 36.7 58 16 149/83 (105) 96 Room Air 12/31/17 03:37 36.7 70 18 149/82 (104) 93 Room Air 12/30/17 23:21 Room Air 12/30/17 19:30 36.6 61 16 148/86 (106) 94 Room Air 12/30/17 17:30 37.4 64 16 159/88 (111) 95 Room Air 12/30/17 17:10 36.9 59 18 149/81 (103) 95 Room Air 12/30/17 15:40 Room Air 12/30/17 15:32 36.8 57 18 140/84 (102) 95 Room Air 12/30/17 14:55 61 16 165/87 (113) 95 Room Air 12/30/17 14:30 36.6 62 18 152/89 (110) 96 Room Air 12/30/17 14:30 96 Room Air 12/30/17 14:00 60 17 157/98 94 Nasal Cannula 2 12/30/17 13:30 62 17 142/84 94 Nasal Cannula 2 12/30/17 13:15 63 17 163/89 97 Nasal Cannula 2 12/30/17 13:00 59 14 153/92 97 Nasal Cannula 2 12/30/17 12:46 54 17 169/97 98 Nasal Cannula 2 12/30/17 12:35 56 16 142/83 99 Nasal Cannula 2 12/30/17 12:25 36.2 54 16 156/90 100 Nasal Cannula 2 12/30/17 12:15 36.2 54 16 146/90 100 Nasal Cannula 2 12/30/17 12:05 54 16 127/84 100 Nasal Cannula 2 12/30/17 11:55 58 16 131/83 100 Oxymask 10 12/30/17 11:47 36.3 56 16 137/109 97 Oxymask 10 12/30/17 08:56 61 16 157/86 (109) 100 Mask 10 Laboratory Results 24 Hours: Test 12/30/17 16:07 12/31/17 06:34 Prothromb Time International Ratio 1.0 1.0 Prothrombin Time 10.4 SECONDS 10.7 SECONDS Hematocrit 35.5 % Hemoglobin 12.2 g/dL Assessment & Plan Assessment: Right knee post op day 1 patellar button revision and poly liner exchange. Plan: PT/OT this morning anticipate D/C to home later today if he does well with therapy dressing changed this morning-wound looks very good continue coumadin per nomogram ice and elevate frequently to reduce pain/swelling Discharge Planning Discharge Planning: home Pain Management: Percocet DVT Prophylaxis: TEDs, SCDs, Coumadin Therapy: Physical Therapy
[2017-12-31] MEDS ORDERED: WARFARIN SOD 5 MG TAB PO SCH (08:00)
--- NOTE | 2017-12-31 08:10 | Anesthesiology Progress Note ---
Anesthesia Post Op Note Date & Time Dec 31, 2017 at 08:09 Vital Signs Pain Intensity: 0.0 Vital Signs Past 12 Hours Date Time Temp Pulse Resp B/P (MAP) Pulse Ox O2 Delivery O2 Flow Rate FiO2 12/31/17 07:30 Room Air 12/31/17 07:00 36.7 58 16 149/83 (105) 96 Room Air 12/31/17 03:37 36.7 70 18 149/82 (104) 93 Room Air 12/30/17 23:21 Room Air Notes Mental Status: alert / awake / arousable, participated in evaluation Pt Amnestic to Procedure: Yes Nausea / Vomiting: adequately controlled Pain: adequately controlled Airway Patency, RR, SpO2: stable & adequate BP & HR: stable & adequate Hydration State: stable & adequate Neuraxial Anesthesia: was administered, sensory block resolved Anesthetic Complications: no major complications apparent
[2017-12-31] MEDS: DOCUSATE SODIUM 100 MG CAP PO SCH (08:48)
[2017-12-31] MEDS: FERROUS GLUCONATE 324 MG TAB PO SCH (08:48)
[2017-12-31] MEDS ORDERED: PANTOprazole SOD 40 MG TAB PO SCH (09:00)
[2017-12-31] MEDS ORDERED: AMLODIPINE BESYLATE 5 MG TAB PO SCH (09:00)
[2017-12-31] MEDS ORDERED: MULTIVITAMIN TAB PO SCH (09:00)
[2017-12-31] MEDS ORDERED: ENALAPRIL MALEATE 10 MG TAB PO SCH (09:00)
[2017-12-31 10:24] VITALS: BP 149/83; PULSE 58; TEMP 36.7; O2SAT 96
== END 2017-12-31 12:45 | disposition home or self-care (01) | DRG 468 ==
LOC: C.ACU 06:03 → C.3E 11:54 → ENRESERV 14:04
PROVIDERS: ADMIT Physical Medicine & Rehabilitation Sports Medicine; ATTEND Physical Medicine & Rehabilitation Sports Medicine
PROC: 0SRC0J9 Replacement of Right Knee Joint with Synthetic Substitute, Cemented, Open Approach (ICD-10-PCS; principal; 2017-12-30 09:00)
PROC: 0SPD09Z Removal of Liner from Left Knee Joint, Open Approach (ICD-10-PCS; principal; 2017-12-30 09:00)
PROC: 0SUW09Z Supplement Left Knee Joint, Tibial Surface with Liner, Open Approach (ICD-10-PCS; principal; 2017-12-30 09:00)
PROC: 0SPC0JC Removal of Synthetic Substitute from Right Knee Joint, Patellar Surface, Open Approach (ICD-10-PCS; principal; 2017-12-30 09:00)
DX: T84.012A Broken internal right knee prosthesis, initial encounter (principal); T84.032A Mechanical loosening of internal right knee prosthetic joint, initial encounter; T84.022A Instability of internal right knee prosthesis, initial encounter; Z96.653 Presence of artificial knee joint, bilateral; Z96.642 Presence of left artificial hip joint; F17.210 Nicotine dependence, cigarettes, uncomplicated; I10 Essential (primary) hypertension; E78.00 Pure hypercholesterolemia, unspecified; Z79.899 Other long term (current) drug therapy

== ENCOUNTER → 2018-01-07 | Outpatient (CLI) | payer OTHER ==
[~2018-01-07] MED LIST changes: -CEFAZOLIN 2000MG IV PUSH 15 ML IV SCH; -LACTATED RINGER'S 1000ML 1,000 ML IV SCH; -LACTATED RINGER'S 1000ML 500 ML IV SCH; -LACTATED RINGER'S 1000ML IV SCH; +OXYC-57 PO; -ROPIVACAINE 5MG/ML 30 ML 150 MG, BUPIVACAINE/EPINEPHR 0.5% MPF 30 ML, KETOROLAC TROMETH... INFIL SCH; -TRANEXAMIC ACID INJ 1,000 MG x 1 Bag Preop IV SCH; +WARF2TAB PO
[2018-01-07 14:28] LABS: INR 1.5 (0.9-1.1)
== END | disposition home or self-care (01) ==
LOC: C.LABBC 09:27
PROVIDERS: ATTEND Internal Medicine
DX: I10 Essential (primary) hypertension (principal); I35.0 Nonrheumatic aortic (valve) stenosis

== ENCOUNTER → 2018-02-22 | Outpatient (CLI) | payer OTHER | END | disposition home or self-care (01) | LOC: C.RDSM 17:41 | PROVIDERS: ATTEND Physical Medicine & Rehabilitation Sports Medicine | DX: M48.02 Spinal stenosis, cervical region (principal); Z96.653 Presence of artificial knee joint, bilateral ==

== ENCOUNTER → 2018-03-01 | Outpatient (CLI) | payer OTHER ==
--- NOTE | 2018-03-01 07:42 | DIAGNOSTIC IMAGING REPORT ---
MRI CERVICAL WITHOUT CONTRAST CLINICAL HISTORY: CERVICAL SPINAL STENOSIS TECHNIQUE: Sagittal and axial T1, T2 and STIR images were obtained. COMPARISON STUDY: Conventional radiographic study dated 02/22/2018 There are no suspicious areas of marrow replacement. No intrinsic cervical cord lesions are visualized. There is a T2 focal fatty rest/hemangioma. C2-3: There is no evidence of disc bulge or focal herniation. There is no spinal or foraminal stenosis. C3-4: There is a circumferential disc bulge. There is mild spinal stenosis. There is bilateral foraminal narrowing left more severe than right. C4-5: There is a minimal circumferential disc bulge. There is no significant spinal stenosis. There is mild left-sided foraminal narrowing C5-6 :There is a circumferential disc bulge. There is bilateral foraminal narrowing. There is minimal spinal canal narrowing. C6-7: There is a circumferential disc bulge. There is no significant spinal or foraminal stenosis C7-T1: There is no evidence of disc bulge or focal herniation. There is no evidence of spinal or foraminal stenosis. IMPRESSION: 1. Multilevel spondylitic changes 2. The findings are most severe at the C3-4 level with mild spinal stenosis and significant left-sided foraminal narrowing Electronically signed by: Bharat Pang M.D. 03/01/2018 7:40 AM Dictated Date/Time: 03/01/2018 7:35 AM
== END | disposition home or self-care (01) ==
LOC: C.MRIBC 06:33
PROVIDERS: ATTEND Physical Medicine & Rehabilitation Sports Medicine
DX: M48.02 Spinal stenosis, cervical region (principal)

== ENCOUNTER → 2018-03-17 | Outpatient (CLI) | payer OTHER | END | disposition home or self-care (01) | LOC: C.PATHSPEC 17:01 | PROVIDERS: ATTEND Urology | DX: R31.0 Gross hematuria (principal) ==

== ENCOUNTER → 2018-03-31 | Outpatient (CLI) | payer OTHER ==
[2018-03-31 11:45] LABS: ALBUMIN 3.7 gm/dl (3.4-5.0); ALKALINE PHOSPHATASE 119 U/L (45-117); ALT/SGPT 28 U/L (12-78); AST/SGOT 24 U/L (15-37); BLOOD UREA NITROGEN 25 mg/dl (7-18); CALCIUM 9.4 mg/dl (8.5-10.1); CARBON DIOXIDE 25 mmol/L (21-32); CREATININE 0.89 mg/dl (0.60-1.40); GLUCOSE 91 mg/dl (70-99); POTASSIUM 3.8 mmol/L (3.5-5.1); SODIUM 140 mmol/L (136-145); TOTAL PROTEIN 7.2 gm/dl (6.4-8.2)
== END | disposition home or self-care (01) ==
LOC: C.LABBC 08:56
PROVIDERS: ATTEND Urology
DX: R31.0 Gross hematuria (principal)

== ENCOUNTER → 2018-06-07 | Outpatient (CLI) | payer OTHER ==
--- NOTE | 2018-06-07 10:44 | DIAGNOSTIC IMAGING REPORT ---
RIBS BILATERAL 9 VIEWS CLINICAL HISTORY: Rib pain status post trauma COMPARISON STUDY: Chest x-ray dated 06/07/2018 FINDINGS: No pneumothorax is visualized. There is an old deformity of the left posterior eighth rib. There is an old deformity of the left second rib. No acute rib fractures are visualized. There is a 1 cm calcification injected over the lower pole left kidney suspicious for a calculus. There is aortic tortuosity. IMPRESSION: 1. Old left-sided rib deformities 2. No acute rib fractures identified 3. Left-sided nephrolithiasis Electronically signed by: Bharat Pang M.D. 06/07/2018 10:43 AM Dictated Date/Time: 06/07/2018 10:40 AM
--- NOTE | 2018-06-07 12:08 | DIAGNOSTIC IMAGING REPORT ---
CHEST 2 VIEWS ROUTINE CLINICAL HISTORY: Left lower anterior rib pain following trauma. COMPARISON STUDY: Chest radiograph September 18, 2017. FINDINGS: There is no pneumothorax or pleural effusion. Cardiomediastinal silhouette is stable. Tortuosity of the descending thoracic aorta is unchanged. There is an equivocal acute nondisplaced anterior left seventh rib fracture which is not evident on the rib series. IMPRESSION: 1. No pneumothorax. 2. Equivocal acute nondisplaced anterior left seventh rib fracture which is not evident on the rib series. Electronically signed by: Daniel Mondragon M.D. 06/07/2018 12:06 PM Dictated Date/Time: 06/07/2018 12:01 PM
== END | disposition home or self-care (01) ==
LOC: C.RADBC 09:44
PROVIDERS: ATTEND Internal Medicine
DX: S22.32XA Fracture of one rib, left side, initial encounter for closed fracture (principal); X58.XXXA Exposure to other specified factors, initial encounter; N20.0 Calculus of kidney

== ENCOUNTER → 2018-07-05 | Outpatient (CLI) | payer OTHER ==
[~2018-07-05] MED LIST changes: -OXYC-57 PO; -WARF2TAB PO
--- NOTE | 2018-07-05 09:38 | DIAGNOSTIC IMAGING REPORT ---
VENOUS DOPPLER REFLUX STUDY OF THE LEFT LOWER EXTREMITY CLINICAL HISTORY: VENOUS REFLUX, EDEMA IN LEFT LOWER EXTREMITY COMPARISON STUDY: No previous studies for comparison. FINDINGS: Grayscale, color flow and spectral imaging was performed. No intraluminal thrombus was visualized. The veins are fully compressible from the groin to the popliteal vein. There was normal augmentation. There is normal color-flow the proximal trifurcation veins of the left calf. No reflux was visualized before during Valsalva maneuver. IMPRESSION: 1. No evidence of left lower extremity DVT 2. No evidence of venous reflux Electronically signed by: Bharat Pang M.D. 07/05/2018 9:36 AM Dictated Date/Time: 07/05/2018 9:35 AM
== END | disposition home or self-care (01) ==
LOC: C.ULTR 08:48
PROVIDERS: ATTEND Physician Assistant
DX: R60.0 Localized edema (principal); I87.2 Venous insufficiency (chronic) (peripheral)

== ENCOUNTER 2019-08-17 06:25 | Inpatient (IN) ==
--- NOTE | 2019-07-29 10:27 | PAT Medication Instructions ---
Medication Instructions Date of Service July 29, 2019 Home Medications travoprost 0.004 % eye drops 0.004 % OPB QAM amlodipine 10 mg-benazepril 20 mg capsule 1 cap PO QAM ascorbic acid (vitamin C) 1,000 mg tablet 1 gm PO QAM docusate sodium 100 mg tablet 100 mg PO DAILY multivitamin tablet 1 tab PO DAILY rosuvastatin 10 mg tablet 10 mg PO Q OTHER DAY Continue as directed rosuvastatin 10 mg tablet 10 mg PO Q OTHER DAY DO NOT take the morning of surgery ascorbic acid (vitamin C) 1,000 mg tablet 1 gm PO QAM docusate sodium 100 mg tablet 100 mg PO DAILY multivitamin tablet 1 tab PO DAILY Take morning of surgery With a small sip of water, OTHERWISE NOTHING TO EAT OR DRINK AFTER MIDNIGHT: travoprost 0.004 % eye drops 0.004 % OPB QAM amlodipine 10 mg-benazepril 20 mg capsule 1 cap PO QAM Other Notes If you have any questions please call us at [phone] or [phone] or [phone] or [phone]
--- NOTE | 2019-07-29 11:59 | Anesthesiology Consultation ---
Date of Service July 29, 2019 Assessment & Plan (1) Encounter for pre-operative examination: - Awaiting review preop testing. - Awaiting surgeon-ordered PCP clearance scheduled 08/10 (Dr. Zee). Chart Review Chart Review: Patient seen in Pre Admission Testing Teaching & Discussion Pre-Anesthesia Teaching/Discussion Notes: Instructed NPO after midnight before surgery,except medications with 15 cc of water. Medication instructions provided according to the PAT guidelines. History Surgery Operation Date: 08/17/19 09:20 Proposed Procedures p Left Total Knee Arthroplasty Poly Liner Exchange and Revision of Patellar Button - Byron Hodges MD Height/Weight Height: 5 ft 10 in Weight: 95.9 kg Allergies Allergy/AdvReac Type Severity Reaction Status Date / Time No Known Allergies Allergy Unknown Verified 07/27/19 08:56 Medications Home Medications Medication Instructions Recorded Confirmed Last Taken travoprost 0.004 % eye drops 0.004 % OPB QAM ml 05/13/19 07/27/19 Unknown amlodipine 10 mg-benazepril 20 mg 1 cap PO QAM #90 cap 05/24/19 07/27/19 Unknown capsule ascorbic acid (vitamin C) 1,000 mg 1 gm PO QAM tab 05/24/19 07/27/19 Unknown tablet docusate sodium 100 mg tablet 100 mg PO DAILY tab 05/24/19 07/27/19 Unknown multivitamin tablet 1 tab PO DAILY 05/24/19 07/27/19 Unknown rosuvastatin 10 mg tablet 10 mg PO Q OTHER DAY #45 tab 05/24/19 07/27/19 Unknown Past Medical History Medical History Glaucoma Hearing loss Hyperlipidemia Hypertension Aortic stenosis Mild aortic stenosis (KEVIN 1.2cm, MG 17.0mmhg) Osteoarthritis Exercise / Class Metabolic Activity II 4-5 Yardwork/Stairs/Walk up hill Past Family History Family History Father Aneurysm of abdominal aorta Sister Hypertension Chronic kidney disease (NKF Classification) Depression Hyperlipidemia Osteoarthritis Past Surgical History Surgical History Cyst of neck REMOVED/BENIGN History of colonoscopy History of total knee replacement RT/LEFT X 2 (RT REVISION) Hx of LASIK Past Anesthesia History No Hx of Anesthesia Complications and No Family Hx of Anesthesia Complications History of PONV No Hx of PONV and No Hx of Motion Sickness Social History Smoking Status: Current every day smoker tobacco type: cigarettes Smoking cigarettes per day: 1 PPD x 50 years Do You Dip or Chew Tobacco: No Hx Alcohol Use: Yes Alcohol type: beer alcohol intake frequency: a few times a month Hx Substance Use: No substance use type: does not use Review of Systems Patient denies chest pain, shortness of breath, dyspnea on exertion, reflux, cough, wheezing, palpitations. Physical Exam Vital Signs VITALS BP 118/70 P 55 TEMP 97.6 SP02 97%RA RESP 18 PHYSICAL Full neck and c-spine range of motion. Full TMJ range of motion. TMD 3 finger breaths Mallampati Score 3 Dentition: intact, left upper side permanent bridge Lungs: clear throughout to auscultation Cardiac: regular rate and rhythm, no murmurs noted Spine: normal Carotid arteries: negative bruit Extremities: no edema Testing Echocardiogram Date: 06/06/19 EF 50-55%. No RWMA. Moderate cLVH. Mild LAD. Mild AR. Mild mitral annular calcification. Mild aortic stenosis (KEVIN 1.2cm, MG 17.0mmhg)
[2019-07-29 12:30] LABS: Basophils # (auto) 0.03 K/uL (0-0.2); Basophils % (auto) 0.3 %; Eosinophils # (auto) 0.25 K/uL (0-0.5); Eosinophils % (auto) 2.6 %; Hematocrit (blood only) 41.4 % (42-52); Hemoglobin 14.2 g/dL (14.0-18.0); Immature Granulocytes # (auto) 0.01 K/uL (0.00-0.02); Immature Granulocytes % (auto) 0.1 %; Lymphocytes # (auto) 2.09 K/uL (1.2-3.4); Mean Corpuscular Hemoglobin 30.9 pg (25-34); Mean Corpuscular Hgb Conc 34.3 g/dL (32-36); Mean Corpuscular Volume 90.2 fL (80-100); Mean Platelet Volume 9.6 fL (7.4-10.4); Monocytes # (auto) 0.87 K/uL (0.11-0.59); Monocytes % (auto) 9.2 %; Neutrophils # (auto) 6.25 K/uL (1.4-6.5); Neutrophils % (auto) 65.8 %; Platelet Count 322 K/uL (130-400); RDW Coefficient of Variation 14.8 % (11.5-14.5); RDW Standard Deviation 49.3 fL (36.4-46.3); Red Blood Count 4.59 M/uL (4.7-6.1)
[2019-07-29 12:50] LABS: Partial Thromboplastin Time 26.9 Seconds (21.0-31.0); Prothrombin Time 10.7 Seconds (9.0-12.0)
[2019-07-29 12:53] LABS: Appearance Urine Clear (Clear); Bacteria Urine Automated Negative (Negative); Bilirubin Urine Negative (Negative); Blood Urine 2+ (Negative); Color Urine Dark Yellow; Epithelial Cell Urine Auto 20-30 /lpf (0-5); Glucose Urine UA Negative (Negative); Ketones Urine Negative (Negative); Leukocyte Esterase Urine Trace (Negative); Nitrite Urine Negative (Negative); Protein Urine Trace (Negative); RBC Urine Automated >30 /hpf (0-4); Urobilinogen Urine Negative (Negative); pH Urine 6.5 (4.5-7.5)
--- NOTE | 2019-07-29 13:00 | XRay Report ---
XR chest Pre-admission PA/Lat CLINICAL HISTORY: Preoperative chest COMPARISON STUDY: 06/07/2018 FINDINGS: The heart is normal in size. There is aortic tortuosity. There is mild chronic interstitial thickening. There is no lobar consolidation. There are no pleural effusions. There is no overt failu re.[ IMPRESSION: Chronic interstitial thickening similar to the prior study. No acute findings. Electronically signed by: Bharat Pang M.D. 07/29/2019 12:58 PM
[2019-07-29 13:29] LABS: BUN Creatinine Ratio 25.4 (10-20); Calcium 9.1 mg/dl (8.5-10.1); Creatinine Clr Calc Pharmacy 77.7 ml/min; Est GFR (African American) 93.2; Est GFR (Non-African American) 80.4; Potassium 3.7 mmol/L (3.5-5.1)
--- NOTE | 2019-08-02 15:56 | History and Physical Report ---
DATE OF ADMISSION: 08/17/2019 PATIENT OF: Byron Hodges MD. CHIEF COMPLAINT: Left knee pain and swelling. HISTORY OF PRESENT ILLNESS: This 78-year-old white male presents today for evaluation of left knee pain and swelling. He has had left knee pain since 04/2018. At that time, he injured himself while golfing. He twisted the left leg and had immediate onset of pain. He felt as though the knee was going to buckle. He did not actually fall. Pain and swelling have been persistent since. Less pain when he is sedentary. More pain when he is active, especially going up or downstairs. He notes little pain while golfing. He does have pain with certain twisting motions. He previously had a right knee removal of broken poly liner and revision of his patellar button on 12/30/2017. He did very well with that and elects to proceed with the same on the left. No numbness or tingling. PAST MEDICAL HISTORY: Significant for elevated cholesterol, hypertension, and rheumatoid arthritis. PAST SURGICAL HISTORY: Left total hip replacement in 2009, bilateral total knee arthroplasties in 1995, left revision TKA in 2007, right knee revision TKA in 2008, right knee open poly revision with patellar button revision on 12/30/2017. SOCIAL HISTORY: The patient smokes a pack of cigarettes daily for the last 60 years. Occasional ETOH use. . Retired. FAMILY HISTORY: Noncontributory. Parents are . ALLERGIES: NKDA. CURRENT MEDICATIONS: Crestor 10 mg, Lotrel 10/20 mg daily, amoxicillin before dental visits. REVIEW OF SYSTEMS: A total of 10 systems were reviewed and are significant for above-stated conditions, otherwise unremarkable. PHYSICAL EXAMINATION: VITAL SIGNS: Weight 95.7 kg, height 177 cm, BP 128/82, pulse 50, temperature 36.7, O2 sat 95% on room air. GENERAL: Well-developed, well-nourished elderly white male in no acute distress. Sitting in a chair. Alert and oriented. SKIN: Warm and dry with good turgor. No rashes or lesions. No ecchymosis or erythema. Moderate intraarticular effusion in the left knee. Well-healed surgical scar. HEENT: Normocephalic, atraumatic. Eyes: PERRLA, EOMI, sclerae slightly injected today. Nares patent bilaterally without turbinate enlargement. Oropharynx without erythema or exudate. No lesions noted. Uvula midline. Oral mucosa moist. Dental bridges are noted. HEART: RRR, 3/6 systolic ejection murmur noted. No gallops or rubs. LUNGS: Clear to auscultation bilaterally. No crackles, rhonchi or wheezing. Good air movement. ABDOMEN: Bowel sounds present x4, soft, nontender. No organomegaly. No masses. MUSCULOSKELETAL: Left knee has the above-stated intraarticular effusion. Neutral alignment. Full terminal extension. Flexion to greater than 110 degrees. No palpable defect in the patellar tendon or quadriceps tendon. He does have some laxity of the MCL and LCL with stressing. He is able to have the leg hyperextended. Ambulatory with a slightly antalgic gait. NEUROLOGIC: Cranial nerves II through XII are intact. Gross sensation is intact across the lower extremities by soft touch. Peripheral pulses are 2+. DATA: Radiographic imaging previously obtained shows no evidence of bone resorption or loosening of the prosthesis. He does have some suggestion of loosening of the patellar button. No fractures. IMPRESSION: Left knee total knee arthroplasty with loose patellar button. PLAN: Approximately 20 minutes was spent with the patient reviewing operative procedure, postoperative recovery, physical therapy requirements and medication use. Postoperative prescriptions for Percocet and Coumadin will be provided at discharge from the hospital. Anticipate discharge to home with home health services. Preoperative lab work, EKG, and chest x-ray have been ordered. Medical clearance has been requested from Dr. Zee. The patient already has a cane and walker at home. Informed written consent to proceed with left knee total knee arthroplasty, poly liner exchange and revision of his patellar button will be obtained on the morning of surgery.
[~2019-08-17 06:25] MED LIST changes: -AMLO10CA PO; -AMOX500C3 PO; -ASCA500 PO; +CEFAZOLIN 2000MG 2,000 MG/15 ML SYR IV SCH; -CRS/10 PO; +LACTATED RINGER'S 1,000 ML IV SCH; +LR 15ML/HR IV SCH; +LR 500ML BOLUS, THEN 15ML/HR IV SCH; -MULT-599 PO; +ROPIVACAINE 0.5% HCL/PF 150 MG, BUPIVACAINE 0.5% MPF 30 ML, EPINEPHrine 0.15 MG, Ketoro... INFIL SCH; -SENNTAB23 PO; +TRANEXAMIC ACID 1,000 MG **IV Pre-op IV SCH
--- NOTE | 2019-08-17 06:31 | History & Physical Bridge Note ---
Date of Service August 17, 2019 History & Physical Bridge Note I have examined the patient, reviewed the History & Physical and in the interval since the performance of the History & Physical I have noted the following changes of clinical significance: consent obtained.no changes noted
[2019-08-17] MEDS ORDERED: BUPIVACAINE 0.5 % 5 MG/1 ML PF 10ML VIAL ONE (06:32)
[2019-08-17] MEDS ORDERED: ROPIVACAINE 0.5% 5 MG/ML 30 ML VIAL ONE (06:32)
[2019-08-17] MEDS ORDERED: MIDAZOLAM HCL 1 MG/ML 2ML VIAL ONE (08:44)
[2019-08-17] MEDS ORDERED: HYDROmorphone INJ 1 MG/ML SYRINGE IV PRN (09:11)
[2019-08-17] MEDS ORDERED: ePHEDrine sulfate 50 MG/ML AMP IV PRN (09:11)
[2019-08-17] MEDS ORDERED: ONDANSETRON INJ 2 MG/ML 2 ML VIAL IV PRN ×2 (09:11→12:40)
[2019-08-17] MEDS ORDERED: ATROPINE SULFATE 0.1 MG/ML 10ML SYR IV PRN (09:11)
[2019-08-17] MEDS ORDERED: KETOROLAC TROMETHAMINE 15 MG/ML VIAL IV PRN (09:11)
[2019-08-17] MEDS ORDERED: ORTHO JOINT ANESTHETIC ONE (09:13)
[2019-08-17] MEDS ORDERED: PHENYLEPHRINE 100MCG/ML 5ML SYR IV PRN (09:14)
[2019-08-17] MEDS ORDERED: fentaNYL citrate 100 MCG/2 ML VIAL ONE (09:16)
[2019-08-17] MEDS ORDERED: LIDOCAINE HCL 2% 2 ML VIAL/AMP(20MG/ML) INFIL ONE (11:06)
[2019-08-17] MEDS ORDERED: PROPOFOL IV EMULSION 10 MG/ML 20 ML VIAL IV ONE (11:06)
[2019-08-17] MEDS ORDERED: ONDANSETRON INJ 2 MG/ML 2 ML VIAL ONE (11:07)
--- NOTE | 2019-08-17 11:21 | Post Operative Brief Note ---
Immediate Post Op Note v1 Date of Surgery August 17, 2019 Pre & Post Diagnosis Operation Date: 08/17/19 09:20 Pre-Op Diagnosis: Left Total Knee Instability and Loose Patellar Button Post-Op Diagnosis: Left Total Knee Instability and Loose Patellar Button Procedure Operation Date: 08/17/19 09:20 Actual Procedures p Left Total Knee Arthroplasty- Polyethylene Liner Exchange and Revision of Patellar Button(Left) - Byron Hodges MD Surgeon Byron Hodges MD Senior Data Warehouse Developer demar/patrick Estimated Blood Loss 25 Findings Consistent with Post-Op Diagnosis
--- NOTE | 2019-08-17 11:25 | Operative Report ---
Post Operative Report Pre & Post Diagnosis Operation Date: 08/17/19 09:20 Pre-Op Diagnosis: Left Total Knee Instability and Loose Patellar Button Post-Op Diagnosis: Left Total Knee Instability and Loose Patellar Button Procedure Operation Date: 08/17/19 09:20 Actual Procedures p Left Total Knee Arthroplasty- Polyethylene Liner Exchange and Revision of Patellar Button(Left) - Byron Hodges MD Surgeon ROBERT Hodges MD Director Prison demar/patrick Estimated Blood Loss 25 Findings Consistent with Post-Op Diagnosis Specimens see operative report Drains none Complications none Disposition Accompanied Patient To Recovery: Yes Disposition: Recovery Room Indications This 78-year-old white male presented to the office with complaints of intractable left knee pain. He previously had a right total knee arthroplasty poly-exchange and patellar revision last year and did well. He elected to proceed with the same on the left. Pre-operative imaging was obtained. Description of Procedure Patient was administered a regional block and then taken to the operating room where he was given sedation. He was prepped and draped in the usual sterile f ashion. Please see Dr. Hodges's operative report for specifics of the procedure. I was present for the entire case from initial patient positioning through final wound closure. Assistance was provided in tissue retraction, hemostasis, trial implant placement, final implant placement, and final wound closure. Patient was taken to the recovery room in satisfactory condition. I attest to the content of the Intraoperative Record and any orders documented therein. Any exceptions are noted below.
--- NOTE | 2019-08-17 11:25 | Operative Report ---
Post Operative Report Pre & Post Diagnosis Operation Date: 08/17/19 09:20 Pre-Op Diagnosis: Left Total Knee Instability and Loose Patellar Button Post-Op Diagnosis: Left Total Knee Instability and Loose Patellar Button Procedure Operation Date: 08/17/19 09:20 Actual Procedures p Left Total Knee Arthroplasty- Polyethylene Liner Exchange and Revision of Patellar Button(Left) - Byron Hodges MD Surgeon Byron Hodges MD Wheel Truing Machine Tender demar/patrick Estimated Blood Loss 25 Findings Consistent with Post-Op Diagnosis Specimens as per procedure notes Drains None Complications none Disposition Accompanied Patient To Recovery: Yes Disposition: Recovery Room Indications 78 years male patient status post left total knee arthroplasty with the loose patellar button Description of Procedure Supine, standard prep and drape, tourniquet, timeout for patient safety Revision of left patellar button and poly-exchange of left total knee arthroplasty I was present throughout the procedure, assisted for wound closure, and transfer the patient to PACU in stable condition I attest to the content of the Intraoperative Record and any orders documented therein. Any exceptions are noted below.
--- NOTE | 2019-08-17 11:34 | Operative Report ---
DATE OF OPERATION: 08/17/2019 SURGEON: Byron Hodges MD TEAMCENTER CONSULTANT: [place]. 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 OPERATION PERFORMED: 1. Revision of patella resurfacing with a metal backed patella Simin augmented patella, large 20 mm. 2. Complete synovectomy. 3. Poly exchange with increase in size from 18-24 with locking bar and constrained Biomet Vanguard SSK constrained liner. PERIOPERATIVE SITUATION: Medically cleared male with intractable knee pain with physical exam, x-ray and metabolic workup including infectious disease were all being negative for any type of infection, but his polys looks like his knee has mid range and hyperextension instability. He was therefore elected to proceed with revision. He had the same thing on the other side. He did well with that. He was happy. He understands there are no guarantees. DESCRIPTION OF PROCEDURE: The patient was identified, site verified, consent verified. Antibiotics confirmed as being given. The left lower extremity was prepped and draped in usual routine fashion. Tourniquet inflated to 300 mmHg with exsanguination of limb with a rubber Esmarch bandage for a total of 50 minutes. Old incision utilized. Parapatellar arthrotomy performed. The adhesions are released. The patella was able to be everted. The poly was completely loose and floating in the joint. It was removed. Complete synovectomy was carried out. The patella was then debrided and then burred down to bleeding bone. It was less than 10 mm thick, so we did use the augmented TM Simin patellar reconstruction device. Once this was all prepared, the knee synovectomy was completed, the release was completed, the patella was everted, the knee flexed and the liner was removed. There was some plastic deformity to the peg and the liner indicating that there was hypermobility to this. This was removed. There was no gross loosening to the femur or to the tibia implant. Complete synovectomy completed, everything could be seen. The poly was removed. Everything was cleaned out and then trial reductions carried out with 24 was best. Once that was verified and everything was cleaned out and the patella was prepared, the liner was seated. The locking pin placed and the knee was reduced. The knee had excellent stability and excellent tracking of the patella. Once the button was cemented into position, a permanent tracking was then assessed. It was excellent. The tourniquet was deflated, no major bleeding points encountered. The wound was irrigated and injected with Orthomix and then the wound closed with #2 Vicryl, 2-0 Vicryl and stainless steel clips. Appropriate dressing applied and the patient transferred to recovery room in satisfactory condition having tolerated the procedure well. ESTIMATED BLOOD LOSS: 25 mL. Crystalloid per anesthesia. PATHOLOGY: None. The liner was just removed. The patella button was removed, the reason to sent it. There was no sign of any infection based on all the preoperative laboratory work. Concluded alpha defensin and CRP and sed rate. The patient was then transferred to recovery room in satisfactory condition having tolerated the procedure well. SUMMARY OF IMPLANTS: Poly Biomet Vanguard SSK constrained 24 mm with locking bar, patellar Simin TM augmented patella, large 20 mm one bag of Palacos G cement. DVT prophylaxis per protocol. I attest to the content of the Intraoperative Record and any orders documented therein. Any exception s are noted below.
--- NOTE | 2019-08-17 11:55 | XRay Report ---
XR knee LT 2V routine CLINICAL HISTORY: Postop examination COMPARISON: 04/23/2018 DISCUSSION: There is a longstem total left knee arthroplasty. No acute fractures are visualized. Ther e is gas within the soft tissues consistent with recent surgery. There is been interval placement of a metallic patellar arthroplasty component. There are overlying skin bonnie. IMPRESSION: Total left knee arthroplasty. Interval placement of a metallic patellar arthroplasty comp onent Electronically signed by: Bharat Pang M.D. 08/17/2019 11:54 AM
--- NOTE | 2019-08-17 12:08 | Anesthesiology Progress Note ---
Date of Service August 17, 2019 Anesthesia Post Procedure Vital Signs Vital Signs: Temp Pulse Resp BP Pulse Ox 08/17/19 12:00 48 L 14 124/70 95 08/17/19 11:50 52 L 16 125/72 97 08/17/19 11:40 47 L 17 122/71 97 08/17/19 11:30 61 17 128/74 98 08/17/19 11:22 36.6 C 59 L 12 117/70 93 08/17/19 07:14 36.9 C 59 L 20 149/85 H 96 Transfer of Care Handoff Completed per policy Notes Mental Status: alert / awake / arousable Patient Amnestic to Procedure: Yes Nausea / Vomiting: adequately controlled Pain: adequately controlled Airway Patency, RR, SpO2: stable & adequate BP & HR: stable & adequate Hydration State: stable & adequate Anesthetic Complications: no major complications apparent
[2019-08-17] MEDS ORDERED: ALUMINUM/MAGNESIUM SUSP 30 ML UDC PO PRN (12:40)
[2019-08-17] MEDS ORDERED: bisacodyL 10 MG SUPP PR PRN (12:40)
[2019-08-17] MEDS ORDERED: METOCLOPRAMIDE HCL INJ 5 MG/ML 2 ML VIAL IV PRN (12:40)
[2019-08-17] MEDS ORDERED: TAMSULOSIN HCL 0.4 MG CAP PO PRN (12:40)
[2019-08-17] MEDS ORDERED: NALOXONE HCL 0.4 MG/1 ML VIAL/CARP IV PRN (12:40)
[2019-08-17] MEDS ORDERED: SODIUM CHLORIDE 0.9% 1000ML 1,000 ML IV SCH (12:40)
[2019-08-17] MEDS ORDERED: MAGNESIUM HYDROXIDE SUSP 30 ML UDC PO PRN (12:40)
[2019-08-17] MEDS ORDERED: HYDROmorphone INJ 0.5 MG/0.5 ML SYR IV PRN (12:40)
[2019-08-17] MEDS ORDERED: OXYCODONE HCL IR 5 MG TAB (IMMEDIATE RELEASE) PO PRN (12:40)
[2019-08-17] MEDS ORDERED: DiphenhydrAMINE HCL 50 MG/ML VIAL IV PRN (12:40)
[2019-08-17] MEDS: ACETAMINOPHEN 500 MG TAB PO SCH ×2 (13:36→21:05)
[2019-08-17] MEDS ORDERED: ORTHO WARFARIN NOMOGRAM SCH (14:00)
--- NOTE | 2019-08-17 14:23 | Progress Note ---
DATE: 08/17/2019 SUBJECTIVE: Status post poly exchange of his total knee replacement liner and revision of loose patellar button left extensor mechanism. At this point in time, he is doing well. He denies chest pain, shortness of breath, fever, chills, nausea, vomiting or headache. OBJECTIVE: VITAL SIGNS: Stable. He is afebrile. NEUROVASCULAR CHECK: Femoral sciatic nerve is normal. Wound dressing clean, dry and intact. Postop x-rays look excellent. ASSESSMENT: Overall, doing well. Continue with postop care pathway, discharge tomorrow. Please use knee immobilizer for ambulation. Will Hep-Lock IV fluid. He is eating and drinking well. Coumadin for deep venous thrombosis prophylaxis.
--- NOTE | 2019-08-17 14:28 | Discharge Summary ---
DATE OF POTENTIAL DISCHARGE: 08/18/2019. CHIEF COMPLAINT: Left knee pain. HISTORY OF PRESENT ILLNESS: The patient underwent elective revision of his poly liner to improve his extension instability, midrange instability as well as revise a patellar button that was broken loose. He notes that he had similar procedure done earlier on the right side and has done well with that and is requesting it on this side. Obviously, no guarantee is given. His hospital course has been uneventful. He notes that the procedure went well. He denies any chest pain, shortness of breath, fever, chills, nausea, vomiting or headache. OBJECTIVE: Vital signs are stable. He is afebrile. PAST MEDICAL HISTORY: Remarkable for hypercholesterolemia, hypertension, rheumatoid arthritis. PAST SURGICAL HISTORY: Include hip replacement, knee replacements, revision on both knees. At this point in time, he is revising the poly liner and the button on the left knee. SOCIAL HISTORY: Reveals that he smokes for 60 years, occasional alcohol use. He is and retired, plays lot of golf. FAMILY HISTORY: Noncontributory. Parents are . ALLERGIES: None. PREADMISSION MEDICATIONS: Include Crestor, Lotrel, amoxicillin for dental visits. REVIEW OF SYSTEMS: Noncontributory. Postop x-rays look excellent. ASSESSMENT: Doing well. Continue postop care pathway. Knee immobilizer for a week or so until good quad tone is restored. Coumadin for deep venous thrombosis prophylaxis. Keep INR of 1.8-2.2.
[2019-08-17] MEDS ORDERED: WARFARIN SOD 5 MG TAB PO ONE (16:00)
[2019-08-17] MEDS: ASCORBIC ACID 500 MG TAB PO SCH (16:59)
[2019-08-17] MEDS: FERROUS GLUCONATE 324 MG TAB PO SCH (16:59)
[2019-08-17] MEDS: KETOROLAC TROMETHAMINE 15 MG/ML VIAL IV SCH (17:18)
[2019-08-17] MEDS: CEFAZOLIN 2000MG 2,000 MG/15 ML SYR IV SCH (17:18)
[2019-08-17] MEDS ORDERED: TRANEXAMIC ACID 1,000 MG in 0.9 % SODIUM CHLORIDE 100 ML IV SCH (17:26)
[2019-08-17] MEDS ORDERED: ROSUVASTATIN CALCIUM 10 MG TAB PO SCH (21:00)
[2019-08-17] MEDS ORDERED: SENNA 8.6 MG TAB PO SCH (21:00)
[2019-08-17] MEDS: DOCUSATE SODIUM 100 MG CAP PO SCH (21:06)
[2019-08-18] MEDS: KETOROLAC TROMETHAMINE 15 MG/ML VIAL IV SCH ×2 (00:02→05:31)
[2019-08-18] MEDS: CEFAZOLIN 2000MG 2,000 MG/15 ML SYR IV SCH (02:16)
[2019-08-18] MEDS: ACETAMINOPHEN 500 MG TAB PO SCH (05:30)
[2019-08-18 05:46] LABS: Hematocrit (blood only) 35.7 % (42-52); Hemoglobin 12.2 g/dL (14.0-18.0); Mean Corpuscular Hemoglobin 30.7 pg (25-34); Mean Corpuscular Hgb Conc 34.2 g/dL (32-36); Mean Corpuscular Volume 89.9 fL (80-100); Mean Platelet Volume 9.7 fL (7.4-10.4); Platelet Count 269 K/uL (130-400); RDW Coefficient of Variation 14.6 % (11.5-14.5); RDW Standard Deviation 47.8 fL (36.4-46.3); Red Blood Count 3.97 M/uL (4.7-6.1); White Blood Count 16.69 K/uL (4.8-10.8)
[2019-08-18 05:55] LABS: INR 1.1 (0.9-1.1); Prothrombin Time 10.9 Seconds (9.0-12.0)
[2019-08-18 06:21] LABS: BUN Creatinine Ratio 24.2 (10-20); Calcium 8.3 mg/dl (8.5-10.1); Creatinine Clr Calc Pharmacy 69.3 ml/min; Est GFR (African American) 81.2; Est GFR (Non-African American) 70.1; Potassium 3.8 mmol/L (3.5-5.1)
[2019-08-18] MEDS ORDERED: dexAMETHasone 10 MG in SYRINGE 0 ML IV SCH (08:00)
[2019-08-18] MEDS: DOCUSATE SODIUM 100 MG CAP PO SCH (08:19)
[2019-08-18] MEDS: ASCORBIC ACID 500 MG TAB PO SCH (08:19)
--- NOTE | 2019-08-18 08:47 | Anesthesiology Progress Note ---
Date of Service August 18, 2019 Anesthesia Post Procedure Vital Signs Vital Signs: Temp Pulse Pulse Resp BP Pulse Ox 08/18/19 07:25 36.8 C 49 L 15 136/79 95 08/18/19 02:18 36.5 C 59 L 16 128/76 94 08/17/19 23:41 36.6 C 55 L 16 128/69 92 08/17/19 20:02 36.5 C 58 L 16 132/51 L 92 08/17/19 15:31 36.5 C 55 L 14 125/74 98 08/17/19 14:30 54 L 18 137/74 98 08/17/19 13:32 53 L 16 142/71 H 98 08/17/19 13:05 50 L 16 137/77 96 08/17/19 12:35 36.5 C 53 L 16 118/64 97 08/17/19 12:20 36.4 C L 50 L 20 113/65 97 08/17/19 12:10 36.1 C L 50 L 18 110/70 94 08/17/19 12:00 48 L 14 124/70 95 08/17/19 11:50 52 L 16 125/72 97 08/17/19 11:40 47 L 17 122/71 97 08/17/19 11:30 61 17 128/74 98 08/17/19 11:22 36.6 C 59 L 12 117/70 93 Notes Mental Status: alert / awake / arousable and participated in evaluation Patient Amnestic to Procedure: Yes Nausea / Vomiting: adequately controlled Pain: adequately controlled Airway Patency, RR, SpO2: stable & adequate BP & HR: stable & adequate Hydration State: stable & adequate Neuraxial Anesthesia: was administered and sensory block resolved Anesthetic Complications: no major complications apparent and Pt Satisfied with anesthetic care
[2019-08-18] MEDS ORDERED: TRAVOPROST Z 0.004% OPH SOLN 2.5 ML BTL OPB SCH (09:00)
[2019-08-18] MEDS ORDERED: ENALAPRIL MALEATE 10 MG TAB PO SCH (09:00)
[2019-08-18] MEDS ORDERED: MULTIVITAMIN TAB PO SCH (09:00)
[2019-08-18] MEDS ORDERED: AMLODIPINE BESYLATE 5 MG TAB PO SCH (09:00)
[2019-08-18] MEDS: FERROUS GLUCONATE 324 MG TAB PO SCH (09:22)
--- NOTE | 2019-08-18 09:53 | Progress Note ---
DATE: 08/18/2019 SUBJECTIVE: Postop day #1 status post revision left total knee replacement. At this point in time, the patient is doing well, has no major issues. He denies chest pain, shortness of breath, fever, chills, nausea, vomiting or headache. VITAL SIGNS: Stable. He is afebrile. LABORATORY WORK: Hematocrit stable at 35.7. INR is 1.1. Electrolytes are good. ASSESSMENT: Doing well. Discharge to home today after PT, OT. Discharge on 4 mg Coumadin. Check INR on Thursday.
[2019-08-18] MEDS ORDERED: WARFARIN SOD 5 MG TAB PO ONE (11:00)
--- NOTE | 2019-08-18 12:34 | Orthopedic Progress Note ---
Date of Service August 18, 2019 Assessment & Plan (1) S/P total knee arthroplasty: New dressing was applied by me. Patient has done well in physical therapy this morning. Discharge to home with outpatient services. Coumadin 4 mg daily and recheck his INR on Thursday. Prescription was provided for Percocet 5/325 mg to be taken every 6 hours as needed. Follow-up in the office in 2 weeks as scheduled. Call with any other concerns. He will wear his knee immobilizer for ambulation for the next 7 days as a precaution, due to his revision surgery. Subjective Patient was seen in his room this morning. He denies any complaints. He states he feels ready to go home. Sickle therapy is currently working with him. He denies any chest pain or shortness of breath. No nausea or vomiting. Physical Exam Physical Exam: Left knee has full terminal extension. Flexion to almost 90 degrees. Dressings have dried drainage on them. Upon removal, there is no active bleeding. Wound looks good. New pressure dressing was applied by me. Compression stocking was also applied. He is able to perform straight leg raise and has intact motor function to the ankle and toes. Neurologic: Gross sensation is intact across the left leg by soft touch. Peripheral pulses are 2+. Results & Data Vital Signs (Past 12 Hours) Vital Signs Temp Pulse Pulse Resp BP Pulse Ox 08/18/19 10:02 36.8 C 50 L 49 L 15 136/79 95 08/18/19 09:23 36.8 C 50 L 49 L 15 136/79 95 08/18/19 07:25 36.8 C 49 L 15 136/79 95 08/18/19 02:18 36.5 C 59 L 16 128/76 94
[2019-08-18] MEDS ORDERED: WARFARIN SOD 5 MG TAB PO SCH (16:00)
== END 2019-08-18 11:42 | disposition home or self-care (01) | DRG 468 ==
LOC: ASU 06:25 → 3E 11:26

== ENCOUNTER 2021-11-11 13:16 | Inpatient (IN) ==
--- NOTE | 2021-11-11 13:39 | Emergency Department Note ---
Impression & Plan Respiratory failure, COVID-19, Atrial fibrillation, Weakness ED Provider Note Provider: Kush Mei MD DATE OF SERVICE: 11/11/2021 CHIEF COMPLAINT: Shortness of breath HISTORY OF PRESENT ILLNESS: Patient is a 81-year-old gentleman history of Covid just after Thanksgiving now on 2 L of oxygen since, atrial fibrillation, and hypertension presenting here today via ambulance from home. Patient states last 3 days or so has had worsened shortness of breath and some fatigue. Patient is not vaccinated for Covid. Patient again had Covid about 4 weeks ago and has since been on 2 L of oxygen. Has been maintained on Xarelto since then due to A. fib that occurred when he became ill with Covid and was hospitalized [facility]. Patient denies significant pain besides his mid lower back. Patient reports he has a history of some pain here. Patient denies any falls or trauma. Patient states he is up and eating quite as well as normal. REVIEW OF SYSTEMS: A total of 10 review of systems was obtained and negative except as stated above in the HPI. PAST MEDICAL HISTORY: As noted above MEDICATIONS: Reviewed home medications include Xarelto, patient states has been taking his medicines SOCIAL HISTORY: Longtime smoker quit over the last month, lives at home with PHYSICAL EXAM: GENERAL: alert and oriented in no acute distress on stretcher Head: normocephalic and atraumatic EYES: No injection, discharge or icterus. NECK: Trachea midline. ENT: Mucous membranes pink and moist. LUNGS: Airway patent. No retractions. Breath sounds diminished throughout with occasional scattered wheeze. HEART: Irregular and tachycardic rate and rhythm. No chest wall tenderness ABDOMEN: Soft and non-tender, without guarding or rebound. SKIN: Acyanotic, warm, dry, without rashes EXTREMITIES: Without swelling, tenderness or deformity NEUROLOGICAL: No focal deficits. No aphasia. No facial droop or slurred speech. EK bpm atrial fibrillation without acute ST segment elevation with some nonspecific anterior inferior T wave inversions and right bundle branch block. QTc 490. CONTINUOUS CARDIAC MONITORING: was ordered and showed a heart rate of 80s to 110s bpm in atrial fibrillation Patient's laboratory studies and imaging reviewed. Differential includes Reactive airway disease, pneumonia, pneumothorax, COPD, CHF, infections, cardiac ischemia, pulmonary embolism, musculoskeletal, gastrointestinal, as well as other pathologies. IMPRESSION/MEDICAL DECISION MAKING: Reviewed available outside records from [place]. Patient was admitted on October 20 and discharged on the diagnosed with COVID-19 pneumonia and hypoxia as well as A. fib RVR (patient did require for a time there high flow nasal cannula). Patient Xarelto usage lowers my suspicion for acute PE. Patient is requiring significant oxygen supplementation and is hypoxic on nasal cannula. Patient denies significant pain. Respiratory viral panel was sent to look for possible other causes of worsening respiratory status such as flu or cold viruses beyond Covid. Chest x-ray ordered as well as basic labs and cultures. Patient does not appear confused or altered although he is somewhat hard of hearing. Daughter later arrives and provides additional history. Patient's been home since the Oct. Blood work here with mild leukocytosis 11.7. Procalcitonin only 0.14. No la ctate elevation. Sodium 130. No troponin elevation with mainly rate controlled A. fib. Bio fire with Covid positive only. Urinalysis not impressive for infection. X-ray per my review and radiology is with diffuse infiltrative findings. May be viral but significant leukocytosis and shift are noted and given his extended course of illness covered with antibiotics here empirically. Patient not hypercarbic but is requiring significant oxygen supplementation again around 90% on a nonrebreather. Patient later had some decline requiring high flow nasal oxygen. Given some steroids here given history of smoking as well as Covid. Hold for aggressive hydration at this time as he has been having intake and wish to avoid any fluid overload. Hospitalist contacted for further care here at the hospital. DIAGNOSIS: Hypoxic respiratory failure, COVID-19, atrial fibrillation DISPOSITION: Hospitalist will evaluate Critical Care I have personally spent 42 minutes of critical care time in the direct management of this patient. This includes bedside care, interpretation of diagnostic studies, and testing, discussion with consultants, patient, and family members, and other required patient management activities. These 42 minutes is in excess of all separately billable procedures. Past Med/Surg History Medical History Aortic stenosis Cigarette smoker Glaucoma Hearing loss Hyperlipidemia Hypertension Mechanical complication of knee prosthesis Osteoarthritis Retained orthopedic hardware Surgical History Cyst of neck H/O sinus surgery History of colonoscopy (10/19/19) History of total hip arthroplasty History of total knee replacement Hx of eye surgery Hx of LASIK Family History Father Aneurysm of abdominal aorta Sister Hypertension Chronic kidney disease (NKF Classification) Depression Hyperlipidemia Osteoarthritis Social History Smoking Status: Current some day smoker Tobacco Type: Cigarettes Cigarettes Per Day: 1 PPD x 50 years; Second Hand Exposure: Yes (FATHER SMOKED); Hx Alcohol Use: Yes Alcohol type: beer Alcohol Intake Frequency: 2-4 x/Month Hx Substance Use: No Preferred Language: Turkish Communication Ability: Effective Visual Impairment: No Limitations Hearing Ability: Use of Hearing Aid Ethologist Required: No Beliefs That Will Affect Care: None marital status: Current Living Situation: Spouse current occupational status: retired Feels Safe at Home: Yes Childhood Exposure to Second-Hand Smoke: Yes caffeine: Yes Dental Care, Regularly: Yes Physical Activity Frequency: 1-2 Times per Week Seatbelt Use: always Sunscreen Use: Yes Do you think of yourself as: straight/heterosexual Assistive Devices: None Allergies Allergies Allergy/AdvReac Type Severity Reaction Status Date / Time No Known Allergies Allergy Unknown Verified 11/11/21 15:57 Home Meds Home Medications Medication Instructions Recorded Confirmed ascorbic acid (vitamin C) 1,000 mg 1 gm PO QAM tab 05/24/19 11/11/21 tablet multivitamin (Daily Multi-Vitamin) 1 tab PO QAM 05/24/19 11/11/21 cholecalciferol (vitamin D3) 50 50 mcg PO QAM 12/27/20 11/11/21 mcg (2,000 unit) capsule docusate sodium 100 mg capsule 100 mg PO QAM PRN 12/27/20 11/11/21 (Colace) ibuprofen 200 mg tablet (Advil) 200 mg PO Q6H PRN 02/07/21 11/11/21 rosuvastatin 10 mg tablet (Crestor) 10 mg PO Q OTHER DAY 02/18/21 11/11/21 diltiazem HCl 120 mg 120 mg PO DAILY 11/11/21 11/11/21 capsule,extended release 24 hr metoprolol tartrate 50 mg tablet 0 mg PO DAILY 11/11/21 11/11/21 rivaroxaban 20 mg tablet (Xarelto) 20 mg PO DAILY 11/11/21 11/11/21 Previous Rx's Medication Instructions Recorded amlodipine 10 mg-benazepril 20 mg 1 cap PO QAM #90 cap 02/20/21 capsule Results & Data (ED) Vital Signs Vital Signs - 24 hr 11/11/21 13:16 11/11/21 13:20 11/11/21 13:36 Temperature 37.4 C Temperature Source Oral Pulse Rate 123 H Pulse Rate [Apical] Pulse Rhythm [Apical] Pulse Strength [Apical] Respiratory Rate 30 H Respiratory Effort / Characteristics Respiratory Depth Respiratory Pattern Blood Pressure 111/91 Blood Pressure [Left Arm] Blood Pressure Mean 97 Blood Pressure Mean [Left Arm] Blood Pressure Position [Left Arm] Pulse Oximetry 84 L 84 L 90 Oxygen Delivery Method Nasal Cannula Oxymask Oxymask Oxygen Flow Rate 8 8 15 Fraction of Inspired Oxygen Sepsis Recent Fever Within 48 Hours No Sepsis New/Unexplained Change in Mental Status No Sepsis Action Taken by Nursing Physician Notified Oxygen Flow Rate - Titration 15 Pulse Oximetry Post Tiitration 90 11/11/21 14:41 11/11/21 16:00 11/11/21 16:12 Temperature Temperature Source Pulse Rate Pulse Rate [Apical] 98 H 114 H 113 H Pulse Rhythm [Apical] Regular Pulse Strength [Apical] Normal Respiratory Rate 39 H 26 H 24 Respiratory Effort / Characteristics Non-Labored Spontaneous Spontaneous Respiratory Depth Normal Respiratory Pattern Regular Blood Pressure Blood Pressure [Left Arm] 101/86 106/87 Blood Pressure Mean Blood Pressure Mean [Left Arm] 91 93 Blood Pressure Position [Left Arm] Sitting Pulse Oximetry 90 89 L 90 Oxygen Delivery Method Oxymask High Flow Nasal Cannula High Flow Nasal Cannula Oxygen Flow Rate 15 40 Fraction of Inspired Oxygen 100 Sepsis Recent Fever Within 48 Hours Sepsis New/Unexplained Change in Mental Status Sepsis Action Taken by Nursing Oxygen Flow Rate - Titration Pulse Oximetry Post Tiitration Laboratory Data Result diagrams: 11/11/21 13:58 11/11/21 13:58 Lab Results 11/11/21 11/11/21 11/11/21 Range/Units 13:35 13:46 13:58 WBC 11.70 H (4.8-10.8) K/uL RBC 3.99 L (4.7-6.1) M/uL Hgb 12.0 L (14.0-18.0) g/dL Hct 35.0 L (42-52) % MCV 87.7 (80-100) fL MCH 30.1 (25-34) pg MCHC 34.3 (32-36) g/dL RDW Std Deviation 46.8 H (36.4-46.3) fL RDW Coeff of Andres 14.5 (11.5-14.5) % Plt Count 238 (130-400) K/uL MPV 10.2 (7.4-10.4) fL Immature Gran % (Auto) 0.3 % Neut % (Auto) 85.6 % Lymph % (Auto) 12.6 % [place] % (Auto) 0.0 % Eos % (Auto) 1.4 % Baso % (Auto) 0.1 % Neut # (Auto) 10.02 H (1.4-6.5) K/uL Lymph # (Auto) 1.48 (1.2-3.4) K/uL [place] # (Auto) 0.00 L (0.11-0.59) K/uL Eos # (Auto) 0.16 (0-0.5) K/uL Baso # (Auto) 0.01 (0-0.2) K/uL Immature Gran # (Auto) 0.03 H (0.00-0.02) K/uL VBG pH (7.36-7.41) VBG pCO2 (38-50) mmHg VBG pO2 mmHg VBG HCO3 mmol/L VBG O2 Saturation % VBG Base Excess mEq/L Barometric Pressure mm/Hg Sodium (136-145) mmol/L Potassium (3.5-5.1) mmol/L Chloride (98-107) mmol/L Carbon Dioxide (21-32) mmol/L Anion Gap (3-11) BUN (7-18) mg/dl Creatinine (0.6-1.4) mg/dl Est Cr Clr Drug Dosing ml/min Est GFR ( Amer) ml/min Est GFR (Non-Af Amer) ml/min BUN/Creatinine Ratio (10-20) Glucose (70-99) mg/dl Lactate (0.4-2.0) mmol/L Calcium (8.5-10.1) mg/dl Total Bilirubin (0.2-1) mg/dl AST (15-37) U/L ALT (12-78) Alkaline Phosphatase (45-117) U/L Troponin I (0-0.045) ng/ml Total Protein (6.4-8.2) gm/dl Albumin (3.4-5.0) gm/dl Globulin (2.5-4.0) gm/dl Albumin/Globulin Ratio (0.9-2) Procalcitonin (0-0.5) ng/ml Urine Color Yellow Urine Appearance Clear (Clear) Urine pH 6.5 (4.5-7.5) Ur Specific [place] 1.012 (1.000-1.030) Urine Protein Trace H (Negative) Urine Glucose (UA) Negative (Negative) Urine Ketones Negative (Negative) Urine Blood 3+ H (Negative) Urine Nitrite Negative (Negative) Urine Bilirubin Negative (Negative) Urine Urobilinogen Negative (Negative) Ur Leukocyte Esterase Trace H (Negative) Urine WBC (Auto) 1-5 (0-5) /hpf Urine RBC (Auto) >30 H (0-4) /hpf U Hyaline Cast (Auto) 1-5 (0-5) /lpf U Epithel Cells (Auto) >30 H (0-5) /lpf Urine Bacteria (Auto) Negative (Negative) Ur Renal Epithelial Cell Not Reportable Calcium Oxalate Crystal Present A (None Prsent) Urine Mucus Present A (None Prsent) Adenovirus (PCR) Not Detected (NotDetected) B. pertussis DNA (PCR) Not Detected (NotDetected) B.parapertussis DNA PCR Not Detected (NotDetected) C. pneumoniae DNA (PCR) Not Detected (NotDetected) Coronavirus OC43 (PCR) Not Detected (NotDetected) Coronavirus HKU1 (PCR) Not Detected (NotDetected) Coronavirus 229E (PCR) Not Detected (NotDetected) SARS-CoV-2 (PCR) DETECTED A* (NotDetected) Coronavirus NL63 (PCR) Not Detected (NotDetected) Human Metapneumovir PCR Not Detected (NotDetected) Influenza Type A (PCR) Not Detected (NotDetected) Influenza Type B (PCR) Not Detected (NotDetected) M. pneumoniae (PCR) Not Detected (NotDetected) Parainfluenza 1 (PCR) Not Detected (NotDetected) Parainfluenza 2 (PCR) Not Detected (NotDetected) Parainfluenza 3 (PCR) Not Detected (NotDetected) Parainfluenza 4 (PCR) Not Detected (NotDetected) RSV (PCR) Not Detected (NotDetected) Entero/Rhino (PCR) Not Detected (NotDetected) 11/11/21 11/11/21 11/11/21 Range/Units 13:58 13:58 13:58 WBC (4.8-10.8) K/uL RBC (4.7-6.1) M/uL Hgb (14.0-18.0) g/dL Hct (42-52) % MCV (80-100) fL MCH (25-34) pg MCHC (32-36) g/dL RDW Std Deviation (36.4-46.3) fL RDW Coeff of Andres (11.5-14.5) % Plt Count (130-400) K/uL MPV (7.4-10.4) fL Immature Gran % (Auto) % Neut % (Auto) % Lymph % (Auto) % [place] % (Auto) % Eos % (Auto) % Baso % (Auto) % Neut # (Auto) (1.4-6.5) K/uL Lymph # (Auto) (1.2-3.4) K/uL [place] # (Auto) (0.11-0.59) K/uL Eos # (Auto) (0-0.5) K/uL Baso # (Auto) (0-0.2) K/uL Immature Gran # (Auto) (0.00-0.02) K/uL VBG pH 7.44 H (7.36-7.41) VBG pCO2 37 L (38-50) mmHg VBG pO2 35 mmHg VBG HCO3 25 mmol/L VBG O2 Saturation 65.9 % VBG Base Excess 1.1 mEq/L Barometric Pressure 728.1 mm/Hg Sodium 130 L (136-145) mmol/L Potassium 4.4 (3.5-5.1) mmol/L Chloride 98 (98-107) mmol/L Carbon Dioxide 24 (21-32) mmol/L Anion Gap 8.0 (3-11) BUN 16 (7-18) mg/dl Creatinine 0.78 (0.6-1.4) mg/dl Est Cr Clr Drug Dosing 83.1 ml/min Est GFR ( Amer) 98.1 ml/min Est GFR (Non-Af Amer) 84.7 ml/min BUN/Creatinine Ratio 21.1 H (10-20) Glucose 93 (70-99) mg/dl Lactate (0.4-2.0) mmol/L Calcium 8.9 (8.5-10.1) mg/dl Total Bilirubin 0.8 (0.2-1) mg/dl AST 44 H (15-37) U/L ALT 59 (12-78) Alkaline Phosphatase 97 (45-117) U/L Troponin I < 0.015 (0-0.045) ng/ml Total Protein 6.3 L (6.4-8.2) gm/dl Albumin 1.7 L (3.4-5.0) gm/dl Globulin 4.6 H (2.5-4.0) gm/dl Albumin/Globulin Ratio 0.4 L (0.9-2) Procalcitonin 0.14 (0-0.5) ng/ml Urine Color Urine Appearance (Clear) Urine pH (4.5-7.5) Ur Specific [place] (1.000-1.030) Urine Protein (Negative) Urine Glucose (UA) (Negative) Urine Ketones (Negative) Urine Blood (Negative) Urine Nitrite (Negative) Urine Bilirubin (Negative) Urine Urobilinogen (Negative) Ur Leukocyte Esterase (Negative) Urine WBC (Auto) (0-5) /hpf Urine RBC (Auto) (0-4) /hpf U Hyaline Cast (Auto) (0-5) /lpf U Epithel Cells (Auto) (0-5) /lpf Urine Bacteria (Auto) (Negative) Ur Renal Epithelial Cell Calcium Oxalate Crystal (None Prsent) Urine Mucus (None Prsent) Adenovirus (PCR) (NotDetected) B. pertussis DNA (PCR) (NotDetected) B.parapertussis DNA PCR (NotDetected) C. pneumoniae DNA (PCR) (NotDetected) Coronavirus OC43 (PCR) (NotDetected) Coronavirus HKU1 (PCR) (NotDetected) Coronavirus 229E (PCR) (NotDetected) SARS-CoV-2 (PCR) (NotDetected) Coronavirus NL63 (PCR) (NotDetected) Human Metapneumovir PCR (NotDetected) Influenza Type A (PCR) (NotDetected) Influenza Type B (PCR) (NotDetected) M. pneumoniae (PCR) (NotDetected) Parainfluenza 1 (PCR) (NotDetected) Parainfluenza 2 (PCR) (NotDetected) Parainfluenza 3 (PCR) (NotDetected) Parainfluenza 4 (PCR) (NotDetected) RSV (PCR) (NotDetected) Entero/Rhino (PCR) (NotDetected) 11/11/21 Range/Units 13:58 WBC (4.8-10.8) K/uL RBC (4.7-6.1) M/uL Hgb (14.0-18.0) g/dL Hct (42-52) % MCV (80-100) fL MCH (25-34) pg MCHC (32-36) g/dL RDW Std Deviation (36.4-46.3) fL RDW Coeff of Andres (11.5-14.5) % Plt Count (130-400) K/uL MPV (7.4-10.4) fL Immature Gran % (Auto) % Neut % (Auto) % Lymph % (Auto) % [place] % (Auto) % Eos % (Auto) % Baso % (Auto) % Neut # (Auto) (1.4-6.5) K/uL Lymph # (Auto) (1.2-3.4) K/uL [place] # (Auto) (0.11-0.59) K/uL Eos # (Auto) (0-0.5) K/uL Baso # (Auto) (0-0.2) K/uL Immature Gran # (Auto) (0.00-0.02) K/uL VBG pH (7.36-7.41) VBG pCO2 (38-50) mmHg VBG pO2 mmHg VBG HCO3 mmol/L VBG O2 Saturation % VBG Base Excess mEq/L Barometric Pressure mm/Hg Sodium (136-145) mmol/L Potassium (3.5-5.1) mmol/L Chloride (98-107) mmol/L Carbon Dioxide (21-32) mmol/L Anion Gap (3-11) BUN (7-18) mg/dl Creatinine (0.6-1.4) mg/dl Est Cr Clr Drug Dosing ml/min Est GFR ( Amer) ml/min Est GFR (Non-Af Amer) ml/min BUN/Creatinine Ratio (10-20) Glucose (70-99) mg/dl Lactate 1.2 (0.4-2.0) mmol/L Calcium (8.5-10.1) mg/dl Total Bilirubin (0.2-1) mg/dl AST (15-37) U/L ALT (12-78) Alkaline Phosphatase (45-117) U/L Troponin I (0-0.045) ng/ml Total Protein (6.4-8.2) gm/dl Albumin (3.4-5.0) gm/dl Globulin (2.5-4.0) gm/dl Albumin/Globulin Ratio (0.9-2) Procalcitonin (0-0.5) ng/ml Urine Color Urine Appearance (Clear) Urine pH (4.5-7.5) Ur Specific [place] (1.000-1.030) Urine Protein (Negative) Urine Glucose (UA) (Negative) Urine Ketones (Negative) Urine Blood (Negative) Urine Nitrite (Negative) Urine Bilirubin (Negative) Urine Urobilinogen (Negative) Ur Leukocyte Esterase (Negative) Urine WBC (Auto) (0-5) /hpf Urine RBC (Auto) (0-4) /hpf U Hyaline Cast (Auto) (0-5) /lpf U Epithel Cells (Auto) (0-5) /lpf Urine Bacteria (Auto) (Negative) Ur Renal Epithelial Cell Calcium Oxalate Crystal (None Prsent) Urine Mucus (None Prsent) Adenovirus (PCR) (NotDetected) B. pertussis DNA (PCR) (NotDetected) B.parapertussis DNA PCR (NotDetected) C. pneumoniae DNA (PCR) (NotDetected) Coronavirus OC43 (PCR) (NotDetected) Coronavirus HKU1 (PCR) (NotDetected) Coronavirus 229E (PCR) (NotDetected) SARS-CoV-2 (PCR) (NotDetected) Coronavirus NL63 (PCR) (NotDetected) Human Metapneumovir PCR (NotDetected) Influenza Type A (PCR) (NotDetected) Influenza Type B (PCR) (NotDetected) M. pneumoniae (PCR) (NotDetected) Parainfluenza 1 (PCR) (NotDetected) Parainfluenza 2 (PCR) (NotDetected) Parainfluenza 3 (PCR) (NotDetected) Parainfluenza 4 (PCR) (NotDetected) RSV (PCR) (NotDetected) Entero/Rhino (PCR) (NotDetected) Administered Medications Discontinued Medications Azithromycin (Azithromycin 250 Mg Tab) 500 mg PO NOW ONE Stop: 11/11/21 15:07 Last Admin: 11/11/21 15:31 Dose: 500 mg Documented by: [id number] Dexamethasone Sodium Phosphate (DexamethasonePf 10 Mg/Ml Vial) 6 mg IV NOW ONE Stop: 11/11/21 15:08 Last Admin: 11/11/21 15:32 Dose: 6 mg Documented by: [id number] Cefepime HCl (Maxipime) 2,000 mg in 20 mls @ 5 mls/min IV NOW STA; Protocol Stop: 11/11/21 15:09 Last Admin: 11/11/21 15:31 Dose: 5 mls/min Documented by: [id number] Imaging Data Radiologist's Impression: Chest X-Ray 11/11/21 13:28 XR chest 1V portable HISTORY: Dyspnea COMPARISON: Chest 02/11/2021. FINDINGS: No pneumothorax. Suspect a trace right pleural effusion. The heart is mildly enlarged. Extensive patchy bilateral airspace opacities, right greater than left. Calcifications noted within the aortic knob. IMPRESSION: Extensive patchy bilateral airspace opacities. This likely represents a multifocal viral pneumonia. ACT 112: Negative or not required by law. Electronically signed by: Best Herman M.D. 11/11/2021 2:08 PM Discharge Plan Visit Data Chief Complaint: Shortness of Breath/Dyspnea ED Provider: Kush Mei Discharge Problem: Respiratory failure, COVID-19, Atrial fibrillation, Weakness Patient Disposition: Being Evaluated by Hospitalist Forms Stand Alone Forms: My [facility] [employer] Prescriptions Prescriptions: No Action amlodipine-benazepril 10-20 mg capsule 1 cap PO QAM Qty: 90 RF: 3 multivitamin [Daily Multi-Vitamin] tablet 1 tab PO QAM RF: 0 ascorbic acid (vitamin C) 1,000 mg tablet 1 gm PO QAM RF: 0 cholecalciferol (vitamin D3) 50 mcg (2,000 unit) capsule 50 mcg PO QAM RF: 0 docusate sodium [Colace] 100 mg capsule 100 mg PO QAM PRN (Reason: Constipation) RF: 0 ibuprofen [Advil] 200 mg Tablet 200 mg PO Q6H PRN (Reason: Pain) RF: 0 rosuvastatin [Crestor] 10 mg tablet 10 mg PO Q OTHER DAY RF: 0 Xarelto 20 mg tablet 20 mg PO DAILY RF: 0 diltiazem HCl 120 mg capsule,extended release 24hr 120 mg PO DAILY RF: 0 metoprolol tartrate 50 mg tablet 0 mg PO DAILY RF: 0 Referrals Referrals: Ab Zee MD [Primary Care Provider] - Discharge Problem: Respiratory failure Qualifiers: Chronicity: acute on chronic Respiratory failure complication: hypoxia Qualifi ed Code(s): J96.21 - Acute and chronic respiratory failure with hypoxia Atrial fibrillation Qualifiers: Atrial fibrillation type: unspecified Qualified Code(s): I48.91 - Unspecified atrial fibrillation
[2021-11-11 14:09] LABS: Basophils # (auto) 0.01 K/uL (0-0.2); Basophils % (auto) 0.1 %; Eosinophils # (auto) 0.16 K/uL (0-0.5); Eosinophils % (auto) 1.4 %; Immature Granulocytes # (auto) 0.03 K/uL (0.00-0.02); Immature Granulocytes % (auto) 0.3 %; Lymphocytes # (auto) 1.48 K/uL (1.2-3.4); Lymphocytes % (auto) 12.6 %; Mean Corpuscular Hemoglobin 30.1 pg (25-34); Mean Corpuscular Hgb Conc 34.3 g/dL (32-36); Mean Corpuscular Volume 87.7 fL (80-100); Mean Platelet Volume 10.2 fL (7.4-10.4); Neutrophils # (auto) 10.02 K/uL (1.4-6.5); Neutrophils % (auto) 85.6 %; Platelet Count 238 K/uL (130-400); RDW Coefficient of Variation 14.5 % (11.5-14.5); RDW Standard Deviation 46.8 fL (36.4-46.3); Red Blood Count 3.99 M/uL (4.7-6.1)
--- NOTE | 2021-11-11 14:09 | XRay Report ---
XR chest 1V portable HISTORY: Dyspnea COMPARISON: Chest 02/11/2021. FINDINGS: No pneumothorax. Suspect a trace right pleural effusion. The heart is mildly enlarged. Exte nsive patchy bilateral airspace opacities, right greater than left. Calcifications noted within the a ortic knob. IMPRESSION: Extensive patchy bilateral airspace opacities. This likely represents a multifocal viral pneumonia. ACT 112: Negative or not required by law. Electronically signed by: Best Herman M.D. 11/11/2021 2:08 PM
[2021-11-11 14:14] LABS: Base Excess VBG 1.1 mEq/L; Oxygen Saturation VBG 65.9 %; pH VBG 7.44 (7.36-7.41)
[2021-11-11 14:30] LABS: Alanine Aminotransferase 59 (12-78); Albumin Level 1.7 gm/dl (3.4-5.0); Aspartate Aminotransferase 44 U/L (15-37); BUN Creatinine Ratio 21.1 (10-20); Blood Urea Nitrogen 16 mg/dl (7-18); Calcium 8.9 mg/dl (8.5-10.1); Carbon Dioxide 24 mmol/L (21-32); Chloride 98 mmol/L (98-107); Creatinine Clr Calc Pharmacy 83.1 ml/min; Est GFR (African American) 98.1 ml/min; Est GFR (Non-African American) 84.7 ml/min; Glucose 93 mg/dl (70-99); Potassium 4.4 mmol/L (3.5-5.1); Sodium 130 mmol/L (136-145)
[2021-11-11 14:35] LABS: Appearance Urine Clear (Clear); Bacteria Urine Automated Negative (Negative); Bilirubin Urine Negative (Negative); Blood Urine 3+ (Negative); Color Urine Yellow; Epithelial Cell Urine Auto >30 /lpf (0-5); Glucose Urine UA Negative (Negative); Ketones Urine Negative (Negative); Leukocyte Esterase Urine Trace (Negative); Nitrite Urine Negative (Negative); Protein Urine Trace (Negative); RBC Urine Automated >30 /hpf (0-4); Specific Gravity Urine 1.012 (1.000-1.030); Urobilinogen Urine Negative (Negative); pH Urine 6.5 (4.5-7.5)
[2021-11-11 14:35] LABS: Albumin Globulin Ratio 0.4 (0.9-2); Alkaline Phosphatase 97 U/L (45-117); Bilirubin,Total 0.8 mg/dl (0.2-1); Globulin 4.6 gm/dl (2.5-4.0); Total Protein 6.3 gm/dl (6.4-8.2); Troponin I < 0.015 ng/ml (0-0.045)
[2021-11-11 14:51] LABS: Adenovirus PCR Not Detected (NotDetected); Bordetella parapertussis PCR Not Detected (NotDetected); Bordetella pertussis PCR Not Detected (NotDetected); Chlamydia pneumoniae PCR Not Detected (NotDetected); Coronavirus 229E PCR Not Detected (NotDetected); Coronavirus HKU1 PCR Not Detected (NotDetected); Coronavirus NL63 PCR Not Detected (NotDetected); Coronavirus OC43PCR Not Detected (NotDetected); Human Metapneumovirus PCR Not Detected (NotDetected); Influenza A PCR Not Detected (NotDetected); Influenza B PCR Not Detected (NotDetected); Mycoplasma pneumoniae PCR Not Detected (NotDetected); Parainfluenza Virus 1 PCR Not Detected (NotDetected); Parainfluenza Virus 2 PCR Not Detected (NotDetected); Parainfluenza Virus 3 PCR Not Detected (NotDetected); Parainfluenza Virus 4 PCR Not Detected (NotDetected); Respiratory Syncytial VirusPCR Not Detected (NotDetected); Rhinovirus/Enterovirus PCR Not Detected (NotDetected)
[2021-11-11 14:59] LABS: Calcium Oxalate Crystals Urine Present (None Prsent); Mucus Urine Present (None Prsent)
[2021-11-11 14:59] LABS: Coronavirus CoV-2 (COVID19)PCR DETECTED (NotDetected)
[2021-11-11] MEDS ORDERED: CEFEPIME 2,000 MG/20 ML VIAL IV STA (15:06)
[2021-11-11] MEDS ORDERED: AZITHROMYCIN 250 MG TAB PO ONE (15:06)
[2021-11-11] MEDS ORDERED: dexAMETHasone**PF** 10 MG/ML VIAL IV ONE (15:07)
[2021-11-11] MEDS ORDERED: DOCUSATE SODIUM 100 MG CAP PO PRN (16:50)
[2021-11-11] MEDS ORDERED: ICU PROTOCOL FOR HYPERGLYCEMIA PRN (17:10)
--- NOTE | 2021-11-11 17:58 | History & Physical Report ---
Date of Service November 11, 2021 Assessment & Plan (1) COVID-19: Plan: Patient is about day 28 of COVID 19 illness. D/W infection control, patient does not need to be in covid isolation at this time. Patient was treated at [facility] with remdesevir, baricitinib and steroids. (2) Respiratory failure: Plan: Acute hypoxic respiratory failure. Concern over: -superimposed bacterial infection though procal is negative. -Pulmonary emboli however patient is on xarelto. -pulmonary fibrosis from COVID 19: risk factors: age and long dration of infection. Will obtain CTpulmonary emboli protocol, will place on antibitoics. will admit to ICU due to rapid increase in oxygen supplementations. (3) Mild aortic stenosis: Plan: stable. (4) Hyperlipidemia: Plan: resume home meds (5) Hypertension: Plan: resume home meds (6) Paroxysmal A-fib: Plan: on xarelto. cont CCB and BBA. Code status as per daughter: no intubation, ok for chest compressions. History of Present Illness Chief Complaint: SOB Primary Care Provider: Ab Zee MD This is a pleasant 81 year old male with a recent hsitory of COVID 19, diagnosed in September and required a 2 week hospital stay in [facility]. He was unvaccinated at the time. Patient was discharged on 11/03 and has required 2 Liters of oxygen. Patient is accompanied by his daughter, who provides the majority of the history due to the lack of hearing aides and his inability to hear without them. e also states that she can make decisions for him. Since patient has become more SOB and fatigued. Initially this was on [place] but now even at rest. This prompted him to come to the hospital. Allergies Allergy/AdvReac Type Severity Reaction Status Date / Time No Known Allergies Allergy Unknown Verified 11/11/21 15:57 Home Medications Medication Instructions Recorded Confirmed Type ascorbic acid (vitamin C) 1,000 mg 1 gm PO QAM tab 05/24/19 11/11/21 History tablet multivitamin (Daily Multi-Vitamin) 1 tab PO QAM 05/24/19 11/11/21 History cholecalciferol (vitamin D3) 50 50 mcg PO QAM 12/27/20 11/11/21 History mcg (2,000 unit) capsule docusate sodium 100 mg capsule 100 mg PO QAM PRN 12/27/20 11/11/21 History (Colace) ibuprofen 200 mg tablet (Advil) 200 mg PO Q6H PRN 02/07/21 11/11/21 History rosuvastatin 10 mg tablet (Crestor) 10 mg PO Q OTHER DAY 02/18/21 11/11/21 History amlodipine 10 mg-benazepril 20 mg 1 cap PO QAM #90 cap 02/20/21 11/11/21 Rx capsule diltiazem HCl 120 mg 120 mg PO DAILY 11/11/21 11/11/21 History capsule,extended release 24 hr metoprolol tartrate 50 mg tablet 0 mg PO DAILY 11/11/21 11/11/21 History rivaroxaban 20 mg tablet (Xarelto) 20 mg PO DAILY 11/11/21 11/11/21 History Past Med/Surg History Medical History Aortic stenosis Mild aortic stenosis (KEVIN 1.2cm, MG 17.0mmhg on 2019 echo) Cigarette smoker Glaucoma Hearing loss Hyperlipidemia Hypertension Mechanical complication of knee prosthesis Osteoarthritis Retained orthopedic hardware Surgical History Cyst of neck REMOVED/BENIGN H/O sinus surgery History of colonoscopy (10/19/19) Diverticulosis in the entire examined colon. Internal hemorrhoids. No specimens collected. No follow up due to age. History of total hip arthroplasty left History of total knee replacement RT X 2/LEFT X 2 (RT REVISION) Hx of eye surgery due to glaucoma both eyes Hx of LASIK Family History Father Aneurysm of abdominal aorta Sister Hypertension Chronic kidney disease (NKF Classification) Depression Hyperlipidemia Osteoarthritis Social History Smoking Status: Former smoker Tobacco Type: Cigarettes Cigarettes Per Day: pack; Smoking End Date: 10/30/2021; Second Hand Exposure: No; Do You Dip or Chew Tobacco: No; Tobacco Cessation Education Requested by Patient: No Hx Alcohol Use: Yes Alcohol type: beer Alcohol Intake Frequency: 2-4 x/Month Hx Substance Use: No Preferred Language: Turkish Communication Ability: Effective Visual Impairment: No Limitations Hearing Ability: Use of Hearing Aid Lifeguard Required: No Beliefs That Will Affect Care: None marital status: Current Living Situation: Spouse Current Living Situation Comment: at home w current occupational status: retired Other Information That Helps Us Care for You: No Feels Safe at Home: Yes Safety Concerns: Feels Safe At This Time Childhood Exposure to Second-Hand Smoke: Yes caffeine: Yes Dental Care, Regularly: Yes Physical Activity Frequency: 1-2 Times per Week Seatbelt Use: always Sunscreen Use: Yes Do you think of yourself as: straight/heterosexual Assistive Devices: Hearing Aid - Left and Walker Review of Systems Constitutional: + fatigue, + malaise and + weakness; no body aches and no anorexia Eyes: no blind spots Ear, Nose, Mouth, Throat: + hearing loss; no ear pain Respiratory: + cough, + dyspnea and + dyspnea on exertion Cardiovascular: + dyspnea and + dyspnea on exertion; no radiating jaw, neck or arm pain Gastrointestinal: no abdominal pain Genitourinary: no dysuria Musculoskeletal: no back pain Integumentary: no acne Neurologic: no gait abnormality Physical Exam Constitutional: WD/WN, vitals as above Eyes: PERRL, conjunctivae normal, anicteric sclerae ENMT: external ear and nose normal, oropharynx normal Neck: trachea midline, no thyromegaly Respiratory: Auscultation: + diminished lung sounds Cardiovascular: Rate/Rhythm: regular rhythm and + tachycardic Gastrointestinal (Abdomen): normal bowel sounds, soft, nontender, no hepatosplenomegaly Musculoskeletal: no cyanosis or clubbing, extremities motor strength 5/5 Skin: no rashes, warm and dry Neurologic: PERRL, EOMI, accommodation nl, no face palsy, no dysarthria Psychiatric: A+Ox3, euthymic affect Lymphatic: no cervical or axillary lymphadenopathy Results & Data Results & Data ([facility]) Vital Signs (Past 12 Hours) Vital Signs Temp Pulse Pulse Resp BP BP Pulse Ox 11/11/21 16:12 113 H 24 90 11/11/21 16:00 114 H 26 H 106/87 89 L 11/11/21 14:41 98 H 39 H 101/86 90 11/11/21 13:36 90 11/11/21 13:20 84 L 11/11/21 13:16 37.4 C 123 H 30 H 111/91 84 L Critical Care Time Critical Care Time: Yes Total Critical Care Time: 35 PG Care Time/CCT Total # of Minutes Spent Total Time Spent with Patient: Total time spent is greater than 50% in coordination of care (as documented) at patient's floor/unit and/or counseling patient: Critical Care Time: Yes Total Critical Care Time: 35 Coding Level of Care Code 66016 Initial Inpt Care Lvl 3 Diagnoses COVID-19 U07.1 Respiratory failure J96.21 Chronicity: acute on chronic Respiratory failure complication: hypoxia Mild aortic stenosis I35.0 Hyperlipidemia E78.5 Hypertension I10 Paroxysmal A-fib I48.0 Additional Codes Critical Care Time - Critical Care Time: Yes ([id number]) (1) Respiratory failure Chronicity: acute on chronic Respiratory failure complication: hypoxia Qualified Code(s): J96.21 - Acute and chronic respiratory failure with hypoxia
[2021-11-11] MEDS ORDERED: OPTIRAY 320 125ml IV ONE (18:18)
--- NOTE | 2021-11-11 18:46 | CT Scan Report ---
CT ANGIOGRAM OF THE CHEST CLINICAL HISTORY: Dyspnea. COMPARISON STUDY: Chest x-ray dated 11/11/2021. Chest CT dated 07/09/2014. TECHNIQUE: Following the IV administration of 118 cc of Optiray 320, CT angiogram of the chest was pe rformed from the upper abdomen to the thoracic inlet utilizing the pulmonary embolus protocol. Images are reviewed in the axial, sagittal, and coronal planes. 3-D MIPS images are created and assessed. I V contrast was administered without complication. A dose lowering technique was utilized adhering to the principles of ALARA. The examination is severely compromised by motion artifact. CT DOSE: 447.94 mGy.cm FINDINGS: Thyroid: Imaged portions of the thyroid gland are normal in size and attenuation. Thoracic aorta: There is atherosclerotic calcification of the thoracic aorta, which is normal in iza hannah and demonstrates standard 3-vessel arch anatomy. No evidence of dissection is seen. Pulmonary vasculature: The pulmonary trunk is normal in caliber. There are no filling defects identif ied in main, lobar, or segmental pulmonary branches to suggest pulmonary embolus. Heart: The heart is mildly enlarged and without pericardial effusion. The coronary arteries and ray l annulus are densely calcified. Lungs and pleural spaces: Evaluation of the lung parenchyma is severely compromised by motion artifac t. Emphysema is suspected. There are small pleural effusions, right larger than left. Extensive/multi focal airspace consolidation is seen throughout both lungs. The trachea appears clear. Mediastinum: There are enlarged mediastinal nodes, which measure up to 19 mm in short axis. Sirena: Enlarged hilar nodes measure up to 16 mm in short axis. Axillae: There is no axillary lymphadenopathy. Upper abdomen: A 5.5 cm cyst is partially visualized in the upper pole of the left kidney. A 1.7 cm c yst is incidentally noted in the right lobe of the liver. Skeletal structures: The skeletal structures are osteopenic. Degenerative change is noted in the shou lders and thoracic spine. No lytic or blastic bony lesions are seen. IMPRESSION: 1. Severely motion compromised examination. 2. There is no evidence of central pulmonary embolus in the main, lobar, or proximal segmental pulmon nitza arteries. Evaluation of the peripheral branches is significantly degraded by motion artifact. 3. Cardiomegaly and suspect emphysema. 4. Extensive multifocal airspace consolidation is typical for pneumonia. Clinical correlation will be required and radiographic follow-up to resolution is recommended. 5. Enlarged mediastinal and hilar lymph nodes are likely reactive. 6. Small pleural effusions. 7. Additional findings as above. ACT 112: Negative or not required by law. Electronically signed by: Niraj Sheridan M.D. 11/11/2021 6:44 PM
[2021-11-11] MEDS ORDERED: LEVALBUTEROL TARTRATE 15 GM HFA.AER.AD INH PRN (20:42)
[2021-11-11] MEDS ORDERED: METOPROLOL TARTRATE 50 MG TAB PO SCH (21:00)
[2021-11-11] MEDS: CEFEPIME 1,000 MG in SYRINGE 0 ML IV SCH (21:37)
[2021-11-11] MEDS: METOPROLOL TARTRATE 25 MG TAB PO SCH (21:37)
--- NOTE | 2021-11-11 21:40 | Critical Care Consultation ---
Date of Consultation November 11, 2021 Assessment & Plan (1) Respiratory failure: Reason Critically Ill: 81-year-old male with acute hypoxic respiratory failure in the setting of recent COVID-19 pneumonia infection with concerns for possible superimposed bacterial infection versus worsening lung injury from COVID-19 infection. NEURO - * CAM ICU: NEGATIVE CARDIAC/VASCULAR - * A. fib with RVR: * Per records, patient developed A. fib during recent inpatient hospitalization with COVID-19 pneumonia. * Continue metoprolol and diltiazem. * Anticoagulated on Xarelto. * EKG: A. fib with right bundle branch block rate of [address] or T wave changes noted. QTc 490 ms. * Monitor on telemetry. RESPIRATORY - * Acute hypoxic respiratory failure in the setting of COVID-19 pneumonia with likely superimposed bacterial infection: * Patient recently admitted to [facility] for 2 weeks after Thanksgiving. Patient received dexamethasone, remdesivir, and baricitinib therapies. Eventually was discharged home on 4 L nasal cannula. Patient receiving inpatient home nursing. Patient with worsening shortness of breath and productive cough over the last 72 hours. Chest x-ray and CT concerning for multifocal infiltrative changes. * Given recent inpatient hospitalization as well as immunosuppressive therapy, agree with continued antibiotic coverage in the interim. * Reinstitute steroids, particularly patient with emphysematous changes on CT with longstanding history of smoking. * Aggressive pulmonary toilet including flutter valve and incentive spirometry. * Sputum cultures if able. * Tolerating high flow well at this time. Titrate down as tolerated. * Consider BiPAP if necessary. * Per admitting CODE STATUS in conversation with patient and family, patient is DO NOT INTUBATE status. Is comfortable with BiPAP if necessary. If the patient is to have worsening respiratory status, would transition toward comfort measures at this point given his extensive ongoing illness with potential for precipitous decline. GI/NUTRITION - * Progress diet as tolerates. RENAL/LYTES - * No significant electrolyte derangements. - * Strict I&Os. ENDO - * No history of diabetes or thyroid disease. * BSGs per unit protocol. ISS --> gtt per unit policy. HEME - * Stable H&H. ID - * COVID-19 pneumonia with possible superimposed bacterial pneumonia: * Previously been treated with remdesivir and baricitinib. * Possible superimposed bacterial infection. * Continue azithromycin and cefepime in the interim. * Obtain sputum cultures if able. LINES/IV ACCESS - * PIVs x2 DVT PROPHYLAXIS - * Continue Xarelto * SCDs CODE STATUS - * Patient's admitting CODE STATUS listed as conditional which specifies the patient would not be interested in endotracheal intubation. I did have an extensive conversation with the patient at bedside. He confirms that he would not be interested in intubation in the event that his respiratory status were to worsen. He is hard of hearing, but is able to answer questions appropriately and provide great insight. After additional conversation, the patient reports that he would not be interested in chest compressions in the event of cardiovascular collapse. He is comfortable with defibrillation or ACLS medication in the event of dysrhythmia. We did not discuss vasopressors at this point. * Spoke with patient's , Marian at great length as well. She confirms that she and her do have living will paperwork which confirms decision for DNI status as well as DNR. She does defer to her and daughter for further decision-making, however. * Spoke with the patient's daughter, Rosa. She confirms that decision for DNI status is appropriate. Again, she reiterates that she is comfortable with father's decision-making capacity at this point. * After conversation with all parties including patient and family, patient's CODE STATUS updated to reflect DO NOT INTUBATE and no chest compressions. I have personally spent 55 minutes of critical care time in the direct management of this patient. This is a life/limb threatening event. This includes time spent evaluating patient, direct bedside care, chart review, placing orders, interpretation of diagnostic studies, discussion with consultants, patient, and family members, as well as other required patient management activities. This time is exclusive of all separately billable procedures, and teaching time and separate from and in addition to any other critical care service time. At this point, patient is stable for downgrade from critical care services. Thank you for allowing us to participate in the care of this patient. Please refer to my attending physician's documentation for any further recommendations. (2) Pneumonia: (3) COVID-19: (4) Paroxysmal A-fib: (5) Cigarette smoker: (6) Hyperlipidemia: (7) Hypertension: Supervising Physician Co-Signing Physician Notes I agree with assessment and plan of S. Ana PA-C. Stable for downgrade out of ICU, no critical care services required at this time History of Present Illness Attending Physician: Albin Roach History of Present Illness Patient is an 81-year-old male with a significant past medical history of hypertension, hyperlipidemia, aortic stenosis, A. fib, cigarette smoking, and recent COVID-19 pneumonia with admission to outside hospital. Patient had been admitted to [facility] for approximately 2 weeks with COVID-19 pneumonia. The patient had received steroids, remdesivir, and Baricitinib during hospital course. He was discharged home on the with home oxygen at 4 L/min. He has been receiving home health care as well. Patient has had increasing shortness of breath over the last 2 days. Home health nurse evaluated today and patient was increasingly tachypneic and had increasing oxygen requirement prompting patient to be sent to the emergency department. On evaluation, there was demetrius rn for possible superimposed bacterial pneumonia. He received azithromycin and cefepime as well as dexamethasone. Patient required high flow nasal cannula. Patient remained tachycardic throughout his stay. Apparently, there was concern for possible need for intubation initially and ICU team was consulted. Per records and admission orders, the patient is listed as conditional code with DO NOT INTUBATE status. Despite this, ICU was consulted for ongoing management. Upon assessment in room 206, the patient is awake, alert, and oriented. He is resting comfortably and not in distress. He is currently requiring 60 L 100% high flow. He remains tachycardic with a heart rate in the 120s. Patient is hard of hearing, but provides historical information appropriately. He reports that he was significantly short of breath earlier today, but reports feeling much better at this time. Patient states that he has had a moderate amount of expectorant over the last 48 hours. Patient reports that he quit smoking upon being admitted to [facility]. He admits to smoking approximately a pack per day for several years. Patient denies current complaints of headaches, dizziness, lightheadedness, chest pain, palpitations, pleuritic pain, hemoptysis, nausea, vomiting, or abdominal discomfort. Of note, the patient has been on Xarelto since discharge from [facility]. He reports that this was for prevention of blood clot formation in the setting of COVID-19 pneumonia. He did develop A. fib well admitted at [facility], however. Allergies Allergy/AdvReac Type Severity Reaction Status Date / Time No Known Allergies Allergy Unknown Verified 11/11/21 15:57 Home Medications Medication Instructions Recorded Confirmed Type ascorbic acid (vitamin C) 1,000 mg 1 gm PO QAM tab 05/24/19 11/11/21 History tablet multivitamin (Daily Multi-Vitamin) 1 tab PO QAM 05/24/19 11/11/21 History cholecalciferol (vitamin D3) 50 50 mcg PO QAM 12/27/20 11/11/21 History mcg (2,000 unit) capsule docusate sodium 100 mg capsule 100 mg PO QAM PRN 12/27/20 11/11/21 History (Colace) ibuprofen 200 mg tablet (Advil) 200 mg PO Q6H PRN 02/07/21 11/11/21 History rosuvastatin 10 mg tablet (Crestor) 10 mg PO Q OTHER DAY 02/18/21 11/11/21 History amlodipine 10 mg-benazepril 20 mg 1 cap PO QAM #90 cap 02/20/21 11/11/21 Rx capsule diltiazem HCl 120 mg 120 mg PO DAILY 11/11/21 11/11/21 History capsule,extended release 24 hr metoprolol tartrate 50 mg tablet 0 mg PO DAILY 11/11/21 11/11/21 History rivaroxaban 20 mg tablet (Xarelto) 20 mg PO DAILY 11/11/21 11/11/21 History Patient History Medical History Aortic stenosis Mild aortic stenosis (KEVIN 1.2cm, MG 17.0mmhg on 2019 echo) Cigarette smoker Glaucoma Hearing loss Hyperlipidemia Hypertension Mechanical complication of knee prosthesis Osteoarthritis Retained orthopedic hardware Surgical History Cyst of neck REMOVED/BENIGN H/O sinus surgery History of colonoscopy (10/19/19) Diverticulosis in the entire examined colon. Internal hemorrhoids. No specimens collected. No follow up due to age. History of total hip arthroplasty left History of total knee replacement RT X 2/LEFT X 2 (RT REVISION) Hx of eye surgery due to glaucoma both eyes Hx of LASIK Family History Father Aneurysm of abdominal aorta Sister Hypertension Chronic kidney disease (NKF Classification) Depression Hyperlipidemia Osteoarthritis Social History Smoking Status: Former smoker Tobacco Type: Cigarettes Cigarettes Per Day: pack; Smoking End Date: 10/30/2021; Second Hand Exposure: No; Do You Dip or Chew Tobacco: No; Tobacco Cessation Education Requested by Patient: No Hx Alcohol Use: Yes Alcohol type: beer Alcohol Intake Frequency: 2-4 x/Month Hx Substance Use: No Preferred Language: Latvian Communication Ability: Effective Visual Impairment: No Limitations Hearing Ability: Use of Hearing Aid Cruise Agent Required: No Beliefs That Will Affect Care: None marital status: Current Living Situation: Spouse Current Living Situation Comment: at home w current occupational status: retired Other Information That Helps Us Care for You: No Feels Safe at Home: Yes Safety Concerns: Feels Safe At This Time Childhood Exposure to Second-Hand Smoke: Yes caffeine: Yes Dental Care, Regularly: Yes Physical Activity Frequency: 1-2 Times per Week Seatbelt Use: always Sunscreen Use: Yes Do you think of yourself as: straight/heterosexual Assistive Devices: Hearing Aid - Left and Walker Review of Systems Review of Systems: A complete 10 point review of systems was reviewed with the patient with pertinent positives and negatives as per history of present illness. All else were negative. Physical Exam Physical Exam: VITAL SIGNS - Vital signs and nursing notes were reviewed. GENERAL - 81-year-old male appearing his stated age who is in no acute distress. Communicates well with provider and answers questions appropriately. Patient is hard of hearing. HEAD - NC/AT. EYES - PERRL with EOMI bilaterally. Sclera anicteric. EARS - No deformities of external structures noted on gross examination bilaterally. NOSE - Midline and without cyanosis. No epistaxis or purulent drainage noted. MOUTH/OROPHARYNX - Without perioral cyanosis. Buccal mucosa pink and moist and without leukoplakia. NECK - Neck with FROM. LUNGS - Chest wall symmetric without accessory muscle use, intercostals retractions, or central cyanosis. Coarse breath sounds noted to the RIGHT sided lung. CARDIAC - RRR with S1/S2. No murmur, rubs, or gallops appreciated. No reproducible tenderness to palpation appreciated over the anterior chest wall. ABDOMEN - Abdominal contour flat without pulsations or visible masses. BS normoactive all four quadrants. No tenderness, palpable masses, hepatosplenomegaly, or ascites noted. EXTREMITIES - No clubbing or peripheral cyanosis. No pretibial edema present. +3/5 radial and dorsalis pedis pulses palpated throughout. +5/5 strength noted in UE/LE bilaterally. NEUROLOGIC - Cranial nerves II through XII grossly intact. PSYCH - A&Ox3 and cooperates fully with examiner. Pt is very pleasant and interacts well with examiner. Results & Data Results & Data ([facility]) Vital Signs (Past 12 Hours) Vital Signs Temp Pulse Pulse Resp BP BP Pulse Ox 11/11/21 20:56 36.9 C 120 H 15 99/81 L 93 11/11/21 20:54 128 H 26 H 90 11/11/21 19:07 121 H 26 H 104/81 93 11/11/21 18:47 121 H 26 H 112/74 93 11/11/21 18:40 120 H 24 90 11/11/21 18:10 122 H 22 92 11/11/21 18:00 123 H 26 H 110/85 89 L 11/11/21 17:30 123 H 20 106/86 89 L 11/11/21 17:00 124 H 26 H 122/97 89 L 11/11/21 16:30 123 H 20 103/82 92 11/11/21 16:12 113 H 24 90 11/11/21 16:00 114 H 26 H 106/87 89 L 11/11/21 14:41 98 H 39 H 101/86 90 11/11/21 13:36 90 11/11/21 13:20 84 L 11/11/21 13:16 37.4 C 123 H 30 H 111/91 84 L Coding Level of Care Code Critical Care 1st 30-74 mins Diagnoses Respiratory failure J96.21 Chronicity: acute on chronic Respiratory failure complication: hypoxia Pneumonia J18.9 COVID-19 U07.1 Paroxysmal A-fib I48.0 Cigarette smoker F17.210 Hyperlipidemia E78.5 Hypertension I10 Time Spent (min) 55 (1) Respiratory failure Chronicity: acute on chronic Respiratory failure complication: hypoxia Qualified Code(s): J96.21 - Acute and chronic respiratory failure with hypoxia
[2021-11-11 23:01] LABS: NT Pro B Type Natriuretic Pept 3728 pg/ml (0-1800)
[2021-11-12] MEDS: CEFEPIME 1,000 MG in SYRINGE 0 ML IV SCH ×2 (05:01→12:53)
[2021-11-12 06:37] LABS: Basophils # (auto) 0.01 K/uL (0-0.2); Basophils % (auto) 0.1 %; Eosinophils # (auto) 0.01 K/uL (0-0.5); Eosinophils % (auto) 0.1 %; Hematocrit (blood only) 35.8 % (42-52); Hemoglobin 12.3 g/dL (14.0-18.0); Immature Granulocytes # (auto) 0.03 K/uL (0.00-0.02); Immature Granulocytes % (auto) 0.3 %; Lymphocytes # (auto) 0.59 K/uL (1.2-3.4); Lymphocytes % (auto) 6.3 %; Mean Corpuscular Hemoglobin 29.9 pg (25-34); Mean Corpuscular Hgb Conc 34.4 g/dL (32-36); Mean Corpuscular Volume 87.1 fL (80-100); Mean Platelet Volume 10.4 fL (7.4-10.4); Monocytes # (auto) 0.75 K/uL (0.11-0.59); Monocytes % (auto) 8.1 %; Neutrophils # (auto) 7.91 K/uL (1.4-6.5); Neutrophils % (auto) 85.1 %; Platelet Count 282 K/uL (130-400); RDW Coefficient of Variation 14.5 % (11.5-14.5); RDW Standard Deviation 45.8 fL (36.4-46.3); Red Blood Count 4.11 M/uL (4.7-6.1)
[2021-11-12 07:03] LABS: BUN Creatinine Ratio 24.1 (10-20); Calcium 8.7 mg/dl (8.5-10.1); Creatinine Clr Calc Pharmacy 68.2 ml/min; Est GFR (African American) 86.7 ml/min; Est GFR (Non-African American) 74.8 ml/min; Magnesium 2.1 mg/dl (1.8-2.4); Phosphorus 4.7 mg/dl (2.5-4.9); Potassium 4.4 mmol/L (3.5-5.1)
[2021-11-12] MEDS: AZITHROMYCIN 250 MG TAB PO SCH (08:10)
[2021-11-12] MEDS: MULTIVITAMIN TAB PO SCH (08:10)
[2021-11-12] MEDS: METOPROLOL TARTRATE 25 MG TAB PO SCH ×2 (08:10→20:49)
[2021-11-12] MEDS: ASCORBIC ACID 500 MG TAB PO SCH (08:10)
[2021-11-12] MEDS: RIVAROXABAN 20 MG TAB PO SCH (08:11)
[2021-11-12] MEDS: CHOLECALCIFEROL 1,000 UNITS 25 MCG TAB PO SCH (08:11)
[2021-11-12] MEDS: dilTIAZem HCL 120 MG CAPCR PO SCH (08:11)
--- NOTE | 2021-11-12 08:47 | XRay Report ---
XR chest 1V portable HISTORY: Pneumonia. Short is of breath. Follow-up. COMPARISON: Chest 11/11/2021. FINDINGS: No pneumothorax. Small bilateral pleural effusions and mild cardiomegaly persist. There are multifocal bilateral airspace opacities most pronounced on the right. This is similar to the prior s tudy. IMPRESSION: No significant change in the extensive multifocal bilateral airspace opacities and small bilateral pl eural effusions. This likely represents a viral pneumonia. ACT 112: Negative or not required by law. Electronically signed by: Best Herman M.D. 11/12/2021 8:46 AM
[2021-11-12] MEDS ORDERED: dexAMETHasone 6 MG in SYRINGE 0 ML IV SCH (09:00)
--- NOTE | 2021-11-12 09:36 | Hospitalist Progress Note ---
Date of Service November 12, 2021 Assessment & Plan (1) COVID-19: Plan: Patient is about day 28 of COVID 19 illness at time of admission D/W infection control, patient does not need to be in covid isolation at this time. Patient was treated at [facility] with remdesevir, baricitinib and steroids. 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 likely from progression of COVID up to 55L and 85% (3) Mild aortic stenosis: (4) Hyperlipidemia: Plan: resume home meds (5) Hypertension: Plan: resume home meds (6) Paroxysmal A-fib: Plan: on xarelto. cont CCB and BBA. Code status as per daughter: no intubation, ok for chest compressions. Admission and Anticipated Discharge Date Admission Date: November 11, 2021 Subjective patient feels fine on 55L and 85% he confirms he has been sick for a month, hospitalized three times he is eating well, admits to being weak, no fever I reviewed labs and chart Review of Systems Review of Systems: All systems reviewed & are unremarkable except as noted in Subjective Respiratory: + cough, + dyspnea and + dyspnea on exertion Physical Exam Physical Exam: General: well developed, well nourished, ill appearing, no distress Neck: supple, trachea midline, normal thyroid Lungs: clear to auscultation bilaterally, slightly tachypneic, no accessory muscle use, no distress Heart: regular S1 and S2, no murmur, peripheral pulses normal, capillary refill normal, no edema Abdomen: soft, NT, ND, + BS, no hepatomegaly, normal to percussion Extremities: normal in appearance, no cyanosis, no petechiae, strength is 5/5 bilaterally Neuro: awake, cooperative, moves all extremities, no focal motor deficits, CN II-XII intact, sensation in extremities intact, normal speech Skin: warm, dry, no rash, normal turgor Psych: Awake, alert oriented x 3, euthymic affect Results & Data Results & Data ([facility]) Vital Signs (Past 12 Hours) Vital Signs Temp Pulse Pulse Resp BP BP Pulse Ox 11/12/21 08:24 58 L 11/12/21 07:55 80 20 90 11/12/21 07:54 134/76 11/12/21 07:39 36.4 C L 85 15 91 11/12/21 04:00 36.7 C 79 15 97/62 L 92 11/12/21 02:25 88 20 92 11/12/21 00:00 37.0 C 74 14 94/62 L 96 11/11/21 21:50 120 H 22 92 Laboratory Results Laboratory Results - last 24 hr 11/11/21 11/11/21 11/11/21 13:35 13:46 13:58 WBC 11.70 H RBC 3.99 L Hgb 12.0 L Hct 35.0 L MCV 87.7 MCH 30.1 MCHC 34.3 RDW Std Deviation 46.8 H RDW Coeff of Andres 14.5 Plt Count 238 MPV 10.2 Immature Gran % (Auto) 0.3 Neut % (Auto) 85.6 Lymph % (Auto) 12.6 [place] % (Auto) 0.0 Eos % (Auto) 1.4 Baso % (Auto) 0.1 Neut # (Auto) 10.02 H Lymph # (Auto) 1.48 [place] # (Auto) 0.00 L Eos # (Auto) 0.16 Baso # (Auto) 0.01 Immature Gran # (Auto) 0.03 H VBG pH VBG pCO2 VBG pO2 VBG HCO3 VBG O2 Saturation VBG Base Excess Barometric Pressure Sodium Potassium Chloride Carbon Dioxide Anion Gap BUN Creatinine Est Cr Clr Drug Dosing Est GFR ( Amer) Est GFR (Non-Af Amer) BUN/Creatinine Ratio Glucose Lactate Calcium Phosphorus Magnesium Total Bilirubin AST ALT Alkaline Phosphatase Lactate Dehydrogenase Troponin I C-Reactive Protein NT-Pro-B Natriuret Pep Total Protein Albumin Globulin Albumin/Globulin Ratio Procalcitonin Urine Color Yellow Urine Appearance Clear Urine pH 6.5 Ur Specific [place] 1.012 Urine Protein Trace H Urine Glucose (UA) Negative Urine Ketones Negative Urine Blood 3+ H Urine Nitrite Negative Urine Bilirubin Negative Urine Urobilinogen Negative Ur Leukocyte Esterase Trace H Urine WBC (Auto) 1-5 Urine RBC (Auto) >30 H U Hyaline Cast (Auto) 1-5 U Epithel Cells (Auto) >30 H Urine Bacteria (Auto) Negative Ur Renal Epithelial Cell Not Reportable Calcium Oxalate Crystal Present A Urine Mucus Present A Adenovirus (PCR) Not Detected B. pertussis DNA (PCR) Not Detected B.parapertussis DNA PCR Not Detected C. pneumoniae DNA (PCR) Not Detected Coronavirus OC43 (PCR) Not Detected Coronavirus HKU1 (PCR) Not Detected Coronavirus 229E (PCR) Not Detected SARS-CoV-2 (PCR) DETECTED A* Coronavirus NL63 (PCR) Not Detected U Histopl Galactoman Ag Human Metapneumovir PCR Not Detected Influenza Type A (PCR) Not Detected Influenza Type B (PCR) Not Detected Urine Legionella Ag M. pneumoniae (PCR) Not Detected Parainfluenza 1 (PCR) Not Detected Parainfluenza 2 (PCR) Not Detected Parainfluenza 3 (PCR) Not Detected Parainfluenza 4 (PCR) Not Detected RSV (PCR) Not Detected Entero/Rhino (PCR) Not Detected Beta-(1,3)-D-Glucan B-(1,3)-D-Glucan Intrp 11/11/21 11/11/21 11/11/21 13:58 13:58 13:58 WBC RBC Hgb Hct MCV MCH MCHC RDW Std Deviation RDW Coeff of Andres Plt Count MPV Immature Gran % (Auto) Neut % (Auto) Lymph % (Auto) [place] % (Auto) Eos % (Auto) Baso % (Auto) Neut # (Auto) Lymph # (Auto) [place] # (Auto) Eos # (Auto) Baso # (Auto) Immature Gran # (Auto) VBG pH 7.44 H VBG pCO2 37 L VBG pO2 35 VBG HCO3 25 VBG O2 Saturation 65.9 VBG Base Excess 1.1 Barometric Pressure 728.1 Sodium 130 L Potassium 4.4 Chloride 98 Carbon Dioxide 24 Anion Gap 8.0 BUN 16 Creatinine 0.78 Est Cr Clr Drug Dosing 83.1 Est GFR ( Amer) 98.1 Est GFR (Non-Af Amer) 84.7 BUN/Creatinine Ratio 21.1 H Glucose 93 Lactate Calcium 8.9 Phosphorus Magnesium Total Bilirubin 0.8 AST 44 H ALT 59 Alkaline Phosphatase 97 Lactate Dehydrogenase Troponin I < 0.015 C-Reactive Protein 20.60 H NT-Pro-B Natriuret Pep 3728 H Total Protein 6.3 L Albumin 1.7 L Globulin 4.6 H Albumin/Globulin Ratio 0.4 L Procalcitonin 0.14 Urine Color Urine Appearance Urine pH Ur Specific [place] Urine Protein Urine Glucose (UA) Urine Ketones Urine Blood Urine Nitrite Urine Bilirubin Urine Urobilinogen Ur Leukocyte Esterase Urine WBC (Auto) Urine RBC (Auto) U Hyaline Cast (Auto) U Epithel Cells (Auto) Urine Bacteria (Auto) Ur Renal Epithelial Cell Calcium Oxalate Crystal Urine Mucus Adenovirus (PCR) B. pertussis DNA (PCR) B.parapertussis DNA PCR C. pneumoniae DNA (PCR) Coronavirus OC43 (PCR) Coronavirus HKU1 (PCR) Coronavirus 229E (PCR) SARS-CoV-2 (PCR) Coronavirus NL63 (PCR) U Histopl Galactoman Ag Human Metapneumovir PCR Influenza Type A (PCR) Influenza Type B (PCR) Urine Legionella Ag M. pneumoniae (PCR) Parainfluenza 1 (PCR) Parainfluenza 2 (PCR) Parainfluenza 3 (PCR) Parainfluenza 4 (PCR) RSV (PCR) Entero/Rhino (PCR) Beta-(1,3)-D-Glucan B-(1,3)-D-Glucan Intrp 11/11/21 11/11/21 11/11/21 13:58 17:16 17:16 WBC RBC Hgb Hct MCV MCH MCHC RDW Std Deviation RDW Coeff of Andres Plt Count MPV Immature Gran % (Auto) Neut % (Auto) Lymph % (Auto) [place] % (Auto) Eos % (Auto) Baso % (Auto) Neut # (Auto) Lymph # (Auto) [place] # (Auto) Eos # (Auto) Baso # (Auto) Immature Gran # (Auto) VBG pH VBG pCO2 VBG pO2 VBG HCO3 VBG O2 Saturation VBG Base Excess Barometric Pressure Sodium Potassium Chloride Carbon Dioxide Anion Gap BUN Creatinine Est Cr Clr Drug Dosing Est GFR ( Amer) Est GFR (Non-Af Amer) BUN/Creatinine Ratio Glucose Lactate 1.2 Calcium Phosphorus Magnesium Total Bilirubin AST ALT Alkaline Phosphatase Lactate Dehydrogenase 392 H Troponin I C-Reactive Protein NT-Pro-B Natriuret Pep Total Protein Albumin Globulin Albumin/Globulin Ratio Procalcitonin Urine Color Urine Appearance Urine pH Ur Specific [place] Urine Protein Urine Glucose (UA) Urine Ketones Urine Blood Urine Nitrite Urine Bilirubin Urine Urobilinogen Ur Leukocyte Esterase Urine WBC (Auto) Urine RBC (Auto) U Hyaline Cast (Auto) U Epithel Cells (Auto) Urine Bacteria (Auto) Ur Renal Epithelial Cell Calcium Oxalate Crystal Urine Mucus Adenovirus (PCR) B. pertussis DNA (PCR) B.parapertussis DNA PCR C. pneumoniae DNA (PCR) Coronavirus OC43 (PCR) Coronavirus HKU1 (PCR) Coronavirus 229E (PCR) SARS-CoV-2 (PCR) Coronavirus NL63 (PCR) U Histopl Galactoman Ag Human Metapneumovir PCR Influenza Type A (PCR) Influenza Type B (PCR) Urine Legionella Ag M. pneumoniae (PCR) Parainfluenza 1 (PCR) Parainfluenza 2 (PCR) Parainfluenza 3 (PCR) Parainfluenza 4 (PCR) RSV (PCR) Entero/Rhino (PCR) Beta-(1,3)-D-Glucan Pending B-(1,3)-D-Glucan Intrp Pending 11/11/21 11/12/21 11/12/21 17:27 06:18 06:18 WBC 9.30 RBC 4.11 L Hgb 12.3 L Hct 35.8 L MCV 87.1 MCH 29.9 MCHC 34.4 RDW Std Deviation 45.8 RDW Coeff of Andres 14.5 Plt Count 282 MPV 10.4 Immature Gran % (Auto) 0.3 Neut % (Auto) 85.1 Lymph % (Auto) 6.3 [place] % (Auto) 8.1 Eos % (Auto) 0.1 Baso % (Auto) 0.1 Neut # (Auto) 7.91 H Lymph # (Auto) 0.59 L [place] # (Auto) 0.75 H Eos # (Auto) 0.01 Baso # (Auto) 0.01 Immature Gran # (Auto) 0.03 H VBG pH VBG pCO2 VBG pO2 VBG HCO3 VBG O2 Saturation VBG Base Excess Barometric Pressure Sodium 131 L Potassium 4.4 Chloride 99 Carbon Dioxide 25 Anion Gap 7.0 BUN 23 H Creatinine 0.95 Est Cr Clr Drug Dosing 68.2 Est GFR ( Amer) 86.7 Est GFR (Non-Af Amer) 74.8 BUN/Creatinine Ratio 24.1 H Glucose 130 H Lactate Calcium 8.7 Phosphorus 4.7 Magnesium 2.1 Total Bilirubin AST ALT Alkaline Phosphatase Lactate Dehydrogenase Troponin I C-Reactive Protein Cancelled NT-Pro-B Natriuret Pep Total Protein Albumin Globulin Albumin/Globulin Ratio Procalcitonin Urine Color Urine Appearance Urine pH Ur Specific [place] Urine Protein Urine Glucose (UA) Urine Ketones Urine Blood Urine Nitrite Urine Bilirubin Urine Urobilinogen Ur Leukocyte Esterase Urine WBC (Auto) Urine RBC (Auto) U Hyaline Cast (Auto) U Epithel Cells (Auto) Urine Bacteria (Auto) Ur Renal Epithelial Cell Calcium Oxalate Crystal Urine Mucus Adenovirus (PCR) B. pertussis DNA (PCR) B.parapertussis DNA PCR C. pneumoniae DNA (PCR) Coronavirus OC43 (PCR) Coronavirus HKU1 (PCR) Coronavirus 229E (PCR) SARS-CoV-2 (PCR) Coronavirus NL63 (PCR) U Histopl Galactoman Ag Human Metapneumovir PCR Influenza Type A (PCR) Influenza Type B (PCR) Urine Legionella Ag M. pneumoniae (PCR) Parainfluenza 1 (PCR) Parainfluenza 2 (PCR) Parainfluenza 3 (PCR) Parainfluenza 4 (PCR) RSV (PCR) Entero/Rhino (PCR) Beta-(1,3)-D-Glucan B-(1,3)-D-Glucan Intrp 11/12/21 11/12/21 08:43 08:43 WBC RBC Hgb Hct MCV MCH MCHC RDW Std Deviation RDW Coeff of Andres Plt Count MPV Immature Gran % (Auto) Neut % (Auto) Lymph % (Auto) [place] % (Auto) Eos % (Auto) Baso % (Auto) Neut # (Auto) Lymph # (Auto) [place] # (Auto) Eos # (Auto) Baso # (Auto) Immature Gran # (Auto) VBG pH VBG pCO2 VBG pO2 VBG HCO3 VBG O2 Saturation VBG Base Excess Barometric Pressure Sodium Potassium Chloride Carbon Dioxide Anion Gap BUN Creatinine Est Cr Clr Drug Dosing Est GFR ( Amer) Est GFR (Non-Af Amer) BUN/Creatinine Ratio Glucose Lactate Calcium Phosphorus Magnesium Total Bilirubin AST ALT Alkaline Phosphatase Lactate Dehydrogenase Troponin I C-Reactive Protein NT-Pro-B Natriuret Pep Total Protein Albumin Globulin Albumin/Globulin Ratio Procalcitonin Urine Color Urine Appearance Urine pH Ur Specific [place] Urine Protein Urine Glucose (UA) Urine Ketones Urine Blood Urine Nitrite Urine Bilirubin Urine Urobilinogen Ur Leukocyte Esterase Urine WBC (Auto) Urine RBC (Auto) U Hyaline Cast (Auto) U Epithel Cells (Auto) Urine Bacteria (Auto) Ur Renal Epithelial Cell Calcium Oxalate Crystal Urine Mucus Adenovirus (PCR) B. pertussis DNA (PCR) B.parapertussis DNA PCR C. pneumoniae DNA (PCR) Coronavirus OC43 (PCR) Coronavirus HKU1 (PCR) Coronavirus 229E (PCR) SARS-CoV-2 (PCR) Coronavirus NL63 (PCR) U Histopl Galactoman Ag Pending Human Metapneumovir PCR Influenza Type A (PCR) Influenza Type B (PCR) Urine Legionella Ag Pending M. pneumoniae (PCR) Parainfluenza 1 (PCR) Parainfluenza 2 (PCR) Parainfluenza 3 (PCR) Parainfluenza 4 (PCR) RSV (PCR) Entero/Rhino (PCR) Beta-(1,3)-D-Glucan B-(1,3)-D-Glucan Intrp Medications Administered Current Inpatient Medications Ascorbic Acid (Ascorbic Acid 500 Mg Tab) 1,000 mg PO QAM [facility] Stop: 12/12/21 08:59 Last Admin: 11/12/21 08:10 Dose: 1,000 mg Documented by: Azithromycin (Azithromycin 250 Mg Tab) 500 mg PO QAM [facility] Stop: 11/15/21 09:01 Last Admin: 11/12/21 08:10 Dose: 500 mg Documented by: Diltiazem HCl (Diltiazem Hcl 120 Mg Capcr) 120 mg PO DAILY [facility] Stop: 12/12/21 08:59 Last Admin: 11/12/21 08:11 Dose: 120 mg Documented by: Docusate Sodium (Docusate Sodium 100 Mg Cap) 100 mg PO QAM PRN PRN Reason: Constipation Stop: 12/11/21 16:49 Dexamethasone 6 mg/ Syringe 1.5 mls @ 1 mls/min IV DAILY [facility] Stop: 11/22/21 08:59 Last Admin: 11/12/21 08:10 Dose: 1 mls/min Documented by: Cefepime HCl 1,000 mg/ Syringe 11.3 mls @ 5.5 mls/min IV Q8H [facility]; Protocol Stop: 11/18/21 20:59 Last Admin: 11/12/21 05:01 Dose: 5.5 mls/min Documented by: Levalbuterol HCl (Levalbuterol Tartrate 15 Gm Hfa.Aer.Ad) 4 puffs INH Q4R PRN PRN Reason: Wheezing Stop: 12/11/21 22:59 Metoprolol Tartrate (Metoprolol Tartrate 25 Mg Tab) 75 mg PO BID [facility] Stop: 12/11/21 20:59 Last Admin: 11/12/21 08:10 Dose: 75 mg Documented by: Miscellaneous (I[facility] Protocol For Hyperglycemia) 1 ea N/A PRN PRN; Protocol PRN Reason: Hyperglycemia Protocol Stop: 11/13/21 17:09 Multivitamins (Multivitamin Tab) 1 tab PO QAM [facility] Stop: 12/12/21 08:59 Last Admin: 11/12/21 08:10 Dose: 1 tab Documented by: Rivaroxaban (Rivaroxaban 20 Mg Tab) 20 mg PO DAILY [facility] Stop: 12/12/21 08:59 Last Admin: 11/12/21 08:11 Dose: 20 mg Documented by: Rosuvastatin Calcium (Rosuvastatin Calcium 10 Mg Tab) 10 mg PO Q2D@1700 [facility] Stop: 12/12/21 16:59 Vitamin D (Cholecalciferol 1,000 Units 25 Mcg Tab) 2,000 units PO QAM [facility] Stop: 12/12/21 08:59 Last Admin: 11/12/21 08:11 Dose: 2,000 units Documented by: PG Care Time/CCT Total # of Minutes Spent Total Time Spent with Patient: Total time spent is greater than 50% in coordination of care (as documented) at patient's floor/unit and/or counseling patient: Coding Level of Care Code 92124 Subseq Hosp Care Lvl 2 Diagnoses COVID-19 U07.1 Respiratory failure J96.21 Chronicity: acute on chronic Respiratory failure complication: hypoxia Mild aortic stenosis I35.0 Hyperlipidemia E78.5 Hypertension I10 Paroxysmal A-fib I48.0 (1) Respiratory failure Chronicity: acute on chronic Respiratory failure complication: hypoxia Qualified Code(s): J96.21 - Acute and chronic respiratory failure with hypoxia
--- NOTE | 2021-11-12 17:42 | Electrocardiogram Report ---
Test Reason : Blood Pressure : / mmHG Vent. Rate : 097 BPM Atrial Rate : 125 BPM P-R Int : 152 ms QRS Dur : 160 ms QT Int : 386 ms P-R-T Axes : 242 023 -58 degrees QTc Int : 490 ms Likely atrial flutter Right bundle branch block T wave abnormality, consider inferior ischemia Abnormal ECG When compared with ECG of 11-FEB-2021 09:59, Right bundle branch block has replaced Non-specific intra-ventricular conduction block Confirmed by Darryl Royal ([id number] on 11/12/2021 5:42:17 PM Referred By: Confirmed By:Raman Royal
[2021-11-12] MEDS: ROSUVASTATIN CALCIUM 10 MG TAB PO SCH (17:45)
[2021-11-12] MEDS: CEFEPIME 2,000 MG in SYRINGE 0 ML IV SCH (20:49)
[2021-11-13] MEDS: FLUTICASONE PROPIONATE NA SPR 16 GM BTL SCH ×5 (00:23→23:18)
[2021-11-13] MEDS ORDERED: MELATONIN 3 MG TAB PO PRN (01:24)
[2021-11-13] MEDS ORDERED: CHLORASEPTIC 1.4% SOLN 180 ML BTL MT PRN (01:24)
[2021-11-13] MEDS: CEFEPIME 2,000 MG in SYRINGE 0 ML IV SCH ×3 (03:45→20:52)
[2021-11-13] MEDS ORDERED: FUROSEMIDE INJ 20 MG/2 ML VIAL IV ONE (07:25)
[2021-11-13] MEDS: CHOLECALCIFEROL 1,000 UNITS 25 MCG TAB PO SCH (08:25)
[2021-11-13] MEDS: RIVAROXABAN 20 MG TAB PO SCH (08:25)
[2021-11-13] MEDS: METOPROLOL TARTRATE 25 MG TAB PO SCH ×2 (08:25→20:56)
[2021-11-13] MEDS: dilTIAZem HCL 120 MG CAPCR PO SCH (08:25)
[2021-11-13] MEDS: MULTIVITAMIN TAB PO SCH (08:26)
[2021-11-13] MEDS: AZITHROMYCIN 250 MG TAB PO SCH (08:26)
[2021-11-13] MEDS: ASCORBIC ACID 500 MG TAB PO SCH (08:26)
--- NOTE | 2021-11-13 08:48 | Hospitalist Progress Note ---
Date of Service November 13, 2021 Assessment & Plan (1) COVID-19: Plan: Patient is about day 28 of COVID 19 illness at time of admission Patient was treated at [facility] with Remdesivir, baricitinib and steroids. CRP is quite high at 20, increase dexamethasone to 20mg x 5 days then 10mg x 5 days repeat CRP, CMP tomorrow up to 55L and 100% today patient does NOT want intubated, says he has lived a good life, it is in God's hands continue antibiotics for 5 days (2) Respiratory failure: Plan: Acute hypoxic respiratory failure. likely from progression of COVID, CT chest shows inflammation, damage from infection no PE on scan up to 55L and 100% (3) Mild aortic stenosis: (4) Hyperlipidemia: Plan: resume home meds (5) Hypertension: Plan: resume home meds (6) Paroxysmal A-fib: Plan: on xarelto. cont CCB and BBA. Code status as per daughter: no intubation, ok for chest compressions. 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, if it is my time it's in God's hands" I promised we would do what we can but also, his CT of the chest shows a lot of damage to lungs, a lot of inflammation, CRP of 20 discussed that we would increase steroids to 20mg, he understands the plan Review of Systems Review of Systems: All systems reviewed & are unremarkable except as noted in Subjective Constitutional: + fatigue and + weakness; no fever Ear, Nose, Mouth, Throat: + dry mouth and + sore throat Respiratory: + cough, + dyspnea and + dyspnea on exertion Cardiovascular: no chest pain Physical Exam Physical Exam: General: well developed, well nourished, ill appearing, frail appearing Neck: supple, trachea midline, normal thyroid Lungs: clear to auscultation bilaterally, slightly tachypneic, + accessory muscle use, no distress Heart: tachycardic S1 and S2, no murmur, peripheral pulses normal, capillary refill normal, no edema Abdomen: soft, NT, ND, + BS, no hepatomegaly, normal to percussion Extremities: normal in appearance, no cyanosis, no petechiae, strength is 5/5 bilaterally Neuro: awake, cooperative, moves all extremities, no focal motor deficits, CN II-XII intact, sensation in extremities intact, normal speech Skin: warm, dry, no rash, normal turgor Psych: Awake, alert oriented x 3, euthymic affect Results & Data Results & Data ([facility]) Vital Signs (Past 12 Hours) Vital Signs Temp Pulse Resp BP Pulse Ox 11/13/21 08:12 71 20 90 11/13/21 07:51 85 22 85 L 11/13/21 07:37 36.5 C 80 16 114/72 85 L 11/13/21 04:00 37 C 61 16 128/81 91 11/13/21 03:23 36.6 C 60 22 114/73 93 11/13/21 03:05 60 20 91 11/12/21 22:56 37.0 C 89 19 137/68 92 11/12/21 22:22 72 20 90 Laboratory Results Laboratory Results - last 24 hr 11/12/21 11/12/21 11/12/21 08:43 08:43 Unknown Nasal Screen MRSA (PCR) Negative U Histopl Galactoman Ag Pending Urine Legionella Ag Pending Medications Administered Current Inpatient Medications Ascorbic Acid (Ascorbic Acid 500 Mg Tab) 1,000 mg PO QAM [facility] Stop: 12/12/21 08:59 Last Admin: 11/13/21 08:26 Dose: 1,000 mg Documented by: Azithromycin (Azithromycin 250 Mg Tab) 500 mg PO QAM [facility] Stop: 11/15/21 09:01 Last Admin: 11/13/21 08:26 Dose: 500 mg Documented by: Diltiazem HCl (Diltiazem Hcl 120 Mg Capcr) 120 mg PO DAILY [facility] Stop: 12/12/21 08:59 Last Admin: 11/13/21 08:25 Dose: 120 mg Documented by: Docusate Sodium (Docusate Sodium 100 Mg Cap) 100 mg PO QAM PRN PRN Reason: Constipation Stop: 12/11/21 16:49 Fluticasone Propionate (Fluticasone Propionate Na Spr 16 Gm Btl) 1 sprays NA Q6 [facility] Stop: 12/13/21 00:00 Last Admin: 11/13/21 05:34 Dose: 1 sprays Documented by: Cefepime HCl 2,000 mg/ Syringe 20 mls @ 5 mls/min IV Q8H [facility] Stop: 11/18/21 19:59 Last Admin: 11/13/21 03:45 Dose: 5 mls/min Documented by: Dexamethasone 20 mg/ Dextrose 30 mls @ 50 mls/hr IV Q24H [facility] Stop: 11/22/21 09:35 Levalbuterol HCl (Levalbuterol Tartrate 15 Gm Hfa.Aer.Ad) 4 puffs INH Q4R PRN PRN Reason: Wheezing Stop: 12/11/21 22:59 Melatonin (Melatonin 3 Mg Tab) 3 mg PO HS PRN PRN Reason: Sleep Stop: 12/13/21 01:23 Metoprolol Tartrate (Metoprolol Tartrate 25 Mg Tab) 75 mg PO BID [facility] Stop: 12/11/21 20:59 Last Admin: 11/13/21 08:25 Dose: 75 mg Documented by: Miscellaneous (I[facility] Protocol For Hyperglycemia) 1 ea N/A PRN PRN; Protocol PRN Reason: Hyperglycemia Protocol Stop: 11/13/21 17:09 Multivitamins (Multivitamin Tab) 1 tab PO QAM [facility] Stop: 12/12/21 08:59 Last Admin: 11/13/21 08:26 Dose: 1 tab Documented by: Phenol (Chloraseptic 1.4% Soln 180 Ml Btl) 2 sprays MT Q8 PRN PRN Reason: throat pain Stop: 12/13/21 01:23 Rivaroxaban (Rivaroxaban 20 Mg Tab) 20 mg PO DAILY [facility] Stop: 12/12/21 08:59 Last Admin: 11/13/21 08:25 Dose: 20 mg Documented by: Rosuvastatin Calcium (Rosuvastatin Calcium 10 Mg Tab) 10 mg PO Q2D@1700 [facility] Stop: 12/12/21 16:59 Last Admin: 11/12/21 17:45 Dose: 10 mg Documented by: Vitamin D (Cholecalciferol 1,000 Units 25 Mcg Tab) 2,000 units PO QAM [facility] Stop: 12/12/21 08:59 Last Admin: 11/13/21 08:25 Dose: 2,000 units Documented by: PG Care Time/CCT Total # of Minutes Spent Total Time Spent: 33 Total Time Spent with Patient: Total time spent is greater than 50% in coordination of care (as documented) at patient's floor/unit and/or counseling patient: Coding Level of Care Code 13502 Subseq Hosp Care Lvl 3 (25 - SIGNIFICANT, SEPARATELY IDENTIFIABLE ) Diagnoses COVID-19 U07.1 Respiratory failure J96.21 Chronicity: acute on chronic Respiratory failure complication: hypoxia Mild aortic stenosis I35.0 Hyperlipidemia E78.5 Hypertension I10 Paroxysmal A-fib I48.0 Sore throat J02.9 (1) Respiratory failure Chronicity: acute on chronic Respiratory failure complication: hypoxia Qualified Code(s): J96.21 - Acute and chronic respiratory failure with hypoxia
[2021-11-13] MEDS ORDERED: dexAMETHasone 20 MG in SYRINGE 0 ML IV SCH (09:00)
[2021-11-13] MEDS: dexAMETHasone 20 MG in DEXTROSE 5% 25 ML IV SCH (11:05)
[2021-11-13] MEDS: NYSTATIN SUSP 500,000 U/5 ML UDC PO SCH ×3 (12:56→20:55)
[2021-11-13] MEDS: LIDOCAINE VISCOUS 2% SOLN 60 ML, diphenhydrAMINE Syrup 150 MG, ALUMINUM/MAGNESIUM SUSP ... PO PRN ×2 (15:18→22:50)
[2021-11-14] MEDS: CEFEPIME 2,000 MG in SYRINGE 0 ML IV SCH ×3 (03:26→13:09)
[2021-11-14] MEDS: FLUTICASONE PROPIONATE NA SPR 16 GM BTL SCH ×3 (04:56→17:42)
[2021-11-14 07:34] LABS: Hematocrit (blood only) 36.8 % (42-52); Hemoglobin 12.5 g/dL (14.0-18.0); Mean Corpuscular Hemoglobin 29.8 pg (25-34); Mean Corpuscular Volume 87.6 fL (80-100); Mean Platelet Volume 9.5 fL (7.4-10.4); Platelet Count 452 K/uL (130-400); RDW Coefficient of Variation 14.9 % (11.5-14.5); RDW Standard Deviation 47.7 fL (36.4-46.3); White Blood Count 12.62 K/uL (4.8-10.8)
[2021-11-14 07:50] LABS: Albumin Level 1.9 gm/dl (3.4-5.0); BUN Creatinine Ratio 39.3 (10-20); Calcium 9.3 mg/dl (8.5-10.1); Creatinine Clr Calc Pharmacy 54.4 ml/min; Est GFR (African American) 72.6 ml/min; Est GFR (Non-African American) 62.6 ml/min; Potassium 4.4 mmol/L (3.5-5.1)
[2021-11-14 07:52] LABS: Albumin Globulin Ratio 0.4 (0.9-2); Bilirubin,Total 0.4 mg/dl (0.2-1); C Reactive Protein 9.1 mg/dl (0-0.29); Globulin 4.9 gm/dl (2.5-4.0); Total Protein 6.8 gm/dl (6.4-8.2)
[2021-11-14] MEDS ORDERED: FUROSEMIDE 40 MG/4 ML VIAL IV ONE (07:53)
[2021-11-14] MEDS: METOPROLOL TARTRATE 25 MG TAB PO SCH ×2 (07:56→22:02)
[2021-11-14] MEDS: CHOLECALCIFEROL 1,000 UNITS 25 MCG TAB PO SCH (07:57)
[2021-11-14] MEDS: MULTIVITAMIN TAB PO SCH (07:58)
[2021-11-14] MEDS: ASCORBIC ACID 500 MG TAB PO SCH (07:58)
[2021-11-14] MEDS: dilTIAZem HCL 120 MG CAPCR PO SCH (07:58)
[2021-11-14] MEDS: AZITHROMYCIN 250 MG TAB PO SCH (07:59)
[2021-11-14] MEDS: RIVAROXABAN 20 MG TAB PO SCH (07:59)
[2021-11-14] MEDS: dexAMETHasone 20 MG in DEXTROSE 5% 25 ML IV SCH (08:23)
[2021-11-14] MEDS: NYSTATIN SUSP 500,000 U/5 ML UDC PO SCH ×4 (08:23→22:02)
--- NOTE | 2021-11-14 09:21 | Hospitalist Progress Note ---
Date of Service November 14, 2021 Assessment & Plan (1) COVID-19: Plan: Patient is about day 28 of COVID 19 illness at time of admission Patient was treated at [facility] with Remdesivir, baricitinib and steroids. 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 likely from progression of COVID, CT chest shows inflammation, damage from infection no PE on scan progressed to needing CPAP today, elected to change to SNATH HANDLE ASSEMBLER (3) Mild aortic stenosis: (4) Hyperlipidemia: Plan: stop all medications (5) Hypertension: Plan: stop medications (6) Paroxysmal A-fib: Plan: tachycardic in 120's stop all medications (7) Sore throat: Plan: no white plaques on exam erythema on upper palate and uvula give magic swizzle, little relief give Morphine PRN Plan: SNATH HANDLE ASSEMBLER, stay in room 244 with family Admission and Anticipated Discharge Date Admission Date: November 11, 2021 Subjective patient requiring CPAP this morning, on 10 and 100%, saturations 88-89%, HR 120's very uncomfortable, asking to come off CPAP, sore throat, sore back I asked him if he just wants to be comfortable, understanding his breathing will get worse, he immediately said "comfortable" arranged to move him to private room outside of COVID unit as he is off precautions I called his daughter and had her bring other family members to the hospital I met with family in the lobby, two sons, daughter, and grandsons answered all their questions about prognosis, how long family visited with patient, he is content that he is not going to recover I discussed with him and family at the bedside that we can continue dexamethasone, other treatments, he said he wants to stop them he accepts that he is not doing well, wants to pass away peacefully with his here change to SNATH HANDLE ASSEMBLER, DNR/DNI Review of Systems Review of Systems: All systems reviewed & are unremarkable except as noted in Subjective Constitutional: + fatigue and + weakness Ear, Nose, Mouth, Throat: + sore throat Respiratory: + dyspnea Physical Exam Physical Exam: General: well developed, well nourished, ill appearing, frail appearing Neck: supple, trachea midline, normal thyroid Lungs: clear to auscultation bilaterally, slightly tachypneic, + accessory muscle use, slight distress Heart: tachycardic S1 and S2, no murmur, peripheral pulses normal, capillary refill normal, no edema Abdomen: soft, NT, ND, + BS, no hepatomegaly, normal to percussion Extremities: normal in appearance, no cyanosis, no petechiae, strength is 5/5 bilaterally Neuro: awake, cooperative, moves all extremities, no focal motor deficits, CN II-XII intact, sensation in extremities intact, normal speech Skin: warm, dry, no rash, normal turgor Psych: Awake, alert oriented x 3, euthymic affect Results & Data Results & Data ([facility]) Vital Signs (Past 12 Hours) Vital Signs Temp Pulse Pulse Resp BP Pulse Ox 11/14/21 07:55 121 H 30 H 90 11/14/21 07:20 73 20 89 L 11/14/21 07:02 36.4 C L 91 H 26 H 127/72 88 L 11/14/21 04:00 36.9 C 86 20 123/81 93 11/14/21 03:22 60 20 90 11/13/21 22:58 97 H 22 86 L 11/13/21 22:51 36.9 C 122 H 20 118/87 89 L Laboratory Results Laboratory Results - last 24 hr 11/12/21 11/14/21 11/14/21 08:43 06:47 06:47 WBC 12.62 H RBC 4.20 L Hgb 12.5 L Hct 36.8 L MCV 87.6 MCH 29.8 MCHC 34.0 RDW Std Deviation 47.7 H RDW Coeff of Andres 14.9 H Plt Count 452 H MPV 9.5 Sodium 133 L Potassium 4.4 Chloride 103 Carbon Dioxide 27 Anion Gap 3.0 BUN 43 H Creatinine 1.10 Est Cr Clr Drug Dosing 54.4 Est GFR ( Amer) 72.6 Est GFR (Non-Af Amer) 62.6 BUN/Creatinine Ratio 39.3 H Glucose 116 H Calcium 9.3 Total Bilirubin 0.4 AST 39 H ALT 73 Alkaline Phosphatase 108 C-Reactive Protein 9.10 H Total Protein 6.8 Albumin 1.9 L Globulin 4.9 H Albumin/Globulin Ratio 0.4 L Urine Legionella Ag SEE NOTE Medications Administered Current Inpatient Medications Ascorbic Acid (Ascorbic Acid 500 Mg Tab) 1,000 mg PO QAM MARIANA Stop: 12/12/21 08:59 Last Admin: 11/14/21 07:58 Dose: 1,000 mg Documented by: Azithromycin (Azithromycin 250 Mg Tab) 500 mg PO QAM MARIANA Stop: 11/15/21 09:01 Last Admin: 11/14/21 07:59 Dose: 500 mg Documented by: Lidocaine HCl 60 ml/Diphenhydramine HCl 150 mg/ Al Hydrox/Mg Hydrox/Simethicone 60 ml/ Glycerin 60 ml/ BARCODE IDENTIFIER 1 ea 0 ml PO Q4H PRN PRN Reason: Sore Throat Stop: 12/13/21 09:04 Last Admin: 11/13/21 22:50 Dose: 5 ml Documented by: Diltiazem HCl (Diltiazem Hcl 120 Mg Capcr) 120 mg PO DAILY [facility] Stop: 12/12/21 08:59 Last Admin: 11/14/21 07:58 Dose: 120 mg Documented by: Docusate Sodium (Docusate Sodium 100 Mg Cap) 100 mg PO QAM PRN PRN Reason: Constipation Stop: 12/11/21 16:49 Fluticasone Propionate (Fluticasone Propionate Na Spr 16 Gm Btl) 1 sprays NA Q6 MARIANA Stop: 12/13/21 00:00 Last Admin: 11/14/21 04:56 Dose: 1 sprays Documented by: Cefepime HCl 2,000 mg/ Syringe 20 mls @ 5 mls/min IV Q8H MARIANA Stop: 11/18/21 19:59 Last Admin: 11/14/21 03:26 Dose: 5 mls/min Documented by: Dexamethasone 20 mg/ Dextrose 30 mls @ 50 mls/hr IV Q24H [facility] Stop: 11/22/21 09:35 Last Infusion: 11/14/21 09:18 Dose: Infused Documented by: Levalbuterol HCl (Levalbuterol Tartrate 15 Gm Hfa.Aer.Ad) 4 puffs INH Q4R PRN PRN Reason: Wheezing Stop: 01/26/22 22:59 Melatonin (Melatonin 3 Mg Tab) 3 mg PO HS PRN PRN Reason: Sleep Stop: 12/13/21 01:23 Metoprolol Tartrate (Metoprolol Tartrate 25 Mg Tab) 75 mg PO BID [facility] Stop: 12/11/21 20:59 Last Admin: 11/14/21 07:56 Dose: 75 mg Documented by: Multivitamins (Multivitamin Tab) 1 tab PO QAM [facility] Stop: 12/12/21 08:59 Last Admin: 11/14/21 07:58 Dose: 1 tab Documented by: Nystatin (Nystatin Susp 500,000 U/5 Ml Udc) 5 ml PO QID [facility] Stop: 11/23/21 12:59 Last Admin: 11/14/21 08:23 Dose: 5 ml Documented by: Phenol (Chloraseptic 1.4% Soln 180 Ml Btl) 2 sprays MT Q8 PRN PRN Reason: throat pain Stop: 12/13/21 01:23 Rivaroxaban (Rivaroxaban 20 Mg Tab) 20 mg PO DAILY [facility] Stop: 12/12/21 08:59 Last Admin: 11/14/21 07:59 Dose: 20 mg Documented by: Rosuvastatin Calcium (Rosuvastatin Calcium 10 Mg Tab) 10 mg PO Q2D@1700 [facility] Stop: 12/12/21 16:59 Last Admin: 11/12/21 17:45 Dose: 10 mg Documented by: Vitamin D (Cholecalciferol 1,000 Units 25 Mcg Tab) 2,000 units PO QAM [facility] Stop: 12/12/21 08:59 Last Admin: 11/14/21 07:57 Dose: 2,000 units Documented by: PG Care Time/CCT Total # of Minutes Spent Total Time Spent: 63 Total Time Spent with Patient: Total time spent is greater than 50% in coordination of care (as documented) at patient's floor/unit and/or counseling patient: 5 separate visits to patient's room 3 separate discussions with patient's family updating RN and RT on plan and speaking with supervisor paper products about moving rooms documentation, chart review Prolonged Care Time Prolonged Care Time: Yes Total Prolonged Care Time: 33 Coding Level of Care Code 91191 Subseq Hosp Care Lvl 3 (25 - SIGNIFICANT, SEPARATELY IDENTIFIABLE ) Diagnoses COVID-19 U07.1 Respiratory failure J96.21 Chronicity: acute on chronic Respiratory failure complication: hypoxia Mild aortic stenosis I35.0 Hyperlipidemia E78.5 Hypertension I10 Paroxysmal A-fib I48.0 Sore throat J02.9 Additional Codes Prolonged Care Time - Prolonged Care Time: Yes ([id number]) (1) Respiratory failure Chronicity: acute on chronic Respiratory failure complication: hypoxia Qualified Code(s): J96.21 - Acute and chronic respiratory failure with hypoxia
[2021-11-14] MEDS: MoRPHine SULFATE 2 MG/ML CARP IV PRN ×4 (09:33→23:02)
[2021-11-14] MEDS ORDERED: ONDANSETRON INJ 2 MG/ML 2 ML VIAL IV PRN (16:02)
[2021-11-14] MEDS ORDERED: ATROPINE SULFATE 1% OP SOLN 5 ML BTL SL PRN (16:02)
[2021-11-14] MEDS ORDERED: GLYCOPYRROLATE 0.2 MG/ML VIAL IV PRN (16:02)
[2021-11-14] MEDS: ROSUVASTATIN CALCIUM 10 MG TAB PO SCH (17:42)
[2021-11-14] MEDS ORDERED: CEFEPIME 2,000 MG in SYRINGE 0 ML IV SCH (18:00)
[2021-11-15] MEDS: NYSTATIN SUSP 500,000 U/5 ML UDC PO SCH ×4 (09:28→20:33)
[2021-11-15] MEDS: METOPROLOL TARTRATE 25 MG TAB PO SCH ×2 (09:28→20:33)
[2021-11-15] MEDS: MoRPHine SULFATE 2 MG/ML CARP IV PRN ×2 (09:42→12:19)
--- NOTE | 2021-11-15 10:19 | Hospitalist Progress Note ---
Date of Service November 15, 2021 Assessment & Plan (1) COVID-19: Plan: Patient is about day 28 of COVID 19 illness at time of admission Patient was treated at [facility] with Remdesivir, baricitinib and steroids. 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 likely from progression of COVID, CT chest shows inflammation, damage from infection no PE on scan progressed to needing CPAP 11/14 but very uncomfortable and still hypoxic, elected to change to ORACLE DATABASE ADMINISTRATOR (3) Mild aortic stenosis: (4) Hyperlipidemia: Plan: stop all medications (5) Hypertension: Plan: stop medications (6) Paroxysmal A-fib: Plan: tachycardic in 120's stop all medications except metoprolol 75mg BID (7) Sore throat: Plan: no white plaques on exam erythema on upper palate and uvula pain is better off high flow, it may have just been dryness Plan: ORACLE DATABASE ADMINISTRATOR, stay in room 244 with family Admission and Anticipated Discharge Date Admission Date: November 11, 2021 Subjective patient doing okay on 5L, he admits to being short of breath, we can use morphine, don't want him suffering he ate this morning, he said his throat is feeling better, far less pain updated his son at the bedside, and daughter went home to showere and get rest patient says he enjoys the view outside of his room with [place] and the land and the water towers and the morning fog his son asked about time frame, told him I am not sure, just focusing on comfort and enjoy whatever time he has left Review of Systems Review of Systems: All systems reviewed & are unremarkable except as noted in Subjective Respiratory: + cough, + dyspnea, + dyspnea on exertion and + sputum production Physical Exam Physical Exam: General: well developed, well nourished, ill appearing, frail appearing Neck: supple, trachea midline, normal thyroid Lungs: clear to auscultation bilaterally, more tachypneic, + accessory muscle use Heart: tachycardic S1 and S2, no murmur, peripheral pulses normal, capillary refill normal, no edema Abdomen: soft, NT, ND, + BS, no hepatomegaly, normal to percussion Extremities: normal in appearance, no cyanosis, no petechiae, strength is 5/5 bilaterally Neuro: awake, cooperative, moves all extremities, no focal motor deficits, CN II-XII intact, sensation in extremities intact, normal speech Skin: warm, dry, no rash, normal turgor Psych: Awake, alert oriented x 3, euthymic affect Results & Data Results & Data ([facility]) Vital Signs (Past 12 Hours) Vital Signs Temp Pulse Resp BP 11/15/21 08:30 36.4 C L 128 H 25 H 101/61 Medications Administered Current Inpatient Medications Atropine Sulfate (Atropine Sulfate 1% Op Soln 5 Ml Btl) 4 drops SL Q1H PRN PRN Reason: Secretions or pulm congestion Stop: 12/14/21 16:01 Lidocaine HCl 60 ml/Diphenhydramine HCl 150 mg/ Al Hydrox/Mg Hydrox/Simethicone 60 ml/ Glycerin 60 ml/ BARCODE IDENTIFIER 1 ea 0 ml PO Q4H PRN PRN Reason: Sore Throat Stop: 12/13/21 09:04 Last Admin: 11/13/21 22:50 Dose: 5 ml Documented by: Glycopyrrolate (Glycopyrrolate 0.2 Mg/Ml Vial) 0.2 mg IV Q4H PRN PRN Reason: Secretions or Pulm Congestion Stop: 12/14/21 16:01 Lorazepam (Ativan) 0.5 mg in 1 mls @ 1 mls/min IV Q2H PRN PRN Reason: Anxiety/Agitation Stop: 12/14/21 16:01 Melatonin (Melatonin 3 Mg Tab) 3 mg PO HS PRN PRN Reason: Sleep Stop: 12/13/21 01:23 Metoprolol Tartrate (Metoprolol Tartrate 25 Mg Tab) 75 mg PO BID MARIANA Stop: 12/11/21 20:59 Last Admin: 11/15/21 09:28 Dose: Not Given Documented by: Morphine Sulfate (Morphine Sulfate 2 Mg/Ml Carp) 2 mg IV Q1H PRN PRN Reason: Pain Stop: 11/28/21 09:24 Last Admin: 11/15/21 09:42 Dose: 2 mg Documented by: Nystatin (Nystatin Susp 500,000 U/5 Ml Udc) 5 ml PO QID MARIANA Stop: 11/23/21 12:59 Last Admin: 11/15/21 09:28 Dose: Not Given Documented by: Ondansetron HCl (Ondansetron Inj 2 Mg/Ml 2 Ml Vial) 4 mg IV Q4H PRN PRN Reason: Nausea &/or Vomiting Stop: 12/14/21 16:01 Phenol (Chloraseptic 1.4% Soln 180 Ml Btl) 2 sprays MT Q8 PRN PRN Reason: throat pain Stop: 12/13/21 01:23 PG Care Time/CCT Total # of Minutes Spent Total Time Spent with Patient: Total time spent is greater than 50% in coordination of care (as documented) at patient's floor/unit and/or counseling patient: Coding Level of Care Code 16156 Subseq Hosp Care Lvl 2 Diagnoses COVID-19 U07.1 Respiratory failure J96.21 Chronicity: acute on chronic Respiratory failure complication: hypoxia Mild aortic stenosis I35.0 Hyperlipidemia E78.5 Hypertension I10 Paroxysmal A-fib I48.0 Sore throat J02.9 (1) Respiratory failure Chronicity: acute on chronic Respiratory failure complication: hypoxia Qualified Code(s): J96.21 - Acute and chronic respiratory failure with hypoxia
[2021-11-15] MEDS ORDERED: STAT IV Infusion **Titration per Protocol STA (15:42)
[2021-11-15] MEDS ORDERED: MoRPHine SULF/NSS 250 MG/250 ML BTL IV SCH (15:45)
[2021-11-16] MEDS: LORazepam 0.5 MG/1 ML VIAL IV PRN ×2 (09:00→12:25)
--- NOTE | 2021-11-16 11:35 | Hospitalist Progress Note ---
Date of Service November 16, 2021 Assessment & Plan (1) COVID-19: Plan: Patient is about day 28 of COVID 19 illness at time of admission Patient was treated at [facility] with Remdesivir, baricitinib and steroids. 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 likely from progression of COVID, CT chest shows inflammation, damage from infection no PE on scan progressed to needing CPAP 11/14 but very uncomfortable and still hypoxic, elected to change to PHYSICAL SECURITY SPECIALIST on morphine drip for comfort since evening of 11/15 (3) Mild aortic stenosis: (4) Hyperlipidemia: Plan: stop all medications (5) Hypertension: Plan: stop medications (6) Paroxysmal A-fib: Plan: tachycardic in 120's stop all medications except metoprolol 75mg BID (7) Sore throat: Plan: no white plaques on exam erythema on upper palate and uvula pain is better off high flow, it may have just been dryness Plan: PHYSICAL SECURITY SPECIALIST, family with him Admission and Anticipated Discharge Date Admission Date: November 11, 2021 Subjective patient on morphine drip of 7mg/hr, getting Atropine drops and Ativan PRN sleeping a lot but will wake up and speak with family turning down oxygen, using Morphine as comfort will move to medical floor as room needed for telemetry Review of Systems Review of Systems: Unobtainable due to reduced consciousness Physical Exam Physical Exam: General: well developed, well nourished, ill appearing, frail appearing, lethargic Neck: supple, trachea midline, normal thyroid Lungs: clear to auscultation bilaterally, shallow, tachypneic Heart: tachycardic S1 and S2, no murmur, peripheral pulses normal, capillary refill normal, no edema Abdomen: soft, NT, ND, + BS, no hepatomegaly, normal to percussion Extremities: normal in appearance, no cyanosis, no petechiae Neuro: lethargic, no focal motor deficits, CN II-XII intact Skin: warm, dry, no rash, normal turgor Psych: sleepy, wakes up and is oriented Results & Data Results & Data ([facility]) Vital Signs (Past 12 Hours) Vital Signs Pulse 11/16/21 00:14 130 H PG Care Time/CCT Total # of Minutes Spent Total Time Spent with Patient: Total time spent is greater than 50% in coordination of care (as documented) at patient's floor/unit and/or counseling patient: Coding Level of Care Code 42471 Subseq Hosp Care Lvl 2 Diagnoses COVID-19 U07.1 Respiratory failure J96.21 Chronicity: acute on chronic Respiratory failure complication: hypoxia Mild aortic stenosis I35.0 Hyperlipidemia E78.5 Hypertension I10 Paroxysmal A-fib I48.0 Sore throat J02.9 (1) Respiratory failure Chronicity: acute on chronic Respiratory failure complication: hypoxia Qualified Code(s): J96.21 - Acute and chronic respiratory failure with hypoxia
--- NOTE | 2021-11-16 16:58 | Discharge Summary ---
Date of Service November 16, 2021 Admission HPI Per Admitting Provider This is a pleasant 81 year old male with a recent hsitory of COVID 19, diagnosed in September and required a 2 week hospital stay in [facility]. He was unvaccinated at the time. Patient was discharged on 11/03 and has required 2 Liters of oxygen. Patient is accompanied by his daughter, who provides the majority of the history due to the lack of hearing aides and his inability to hear without them. e also states that she can make decisions for him. Since patient has become more SOB and fatigued. Initially this was on [place] but now even at rest. This prompted him to come to the hospital. Principal Diagnosis COVID 19 pneumonia Acute hypoxic respiratory failure Discharge Exam no pulse, no respirations, no heart tones, no breath sounds, unresponsive Discharge Data Allergies Allergy/AdvReac Type Severity Reaction Status Date / Time No Known Allergies Allergy Unknown Verified 11/11/21 15:57 Consultations 11/11/21 16:07 ED Decision to Admit Stat Ordered Studies 11/11/21 16:03 CT angio chest PE protocol Urgent Hospital Course (1) COVID-19: Patient is about day 28 of COVID 19 illness at time of admission Patient was treated at [facility] with Remdesivir, baricitinib and steroids. 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 TRUCK DRIVER on morphine drip for comfort since evening of 11/15 (3) Mild aortic stenosis: (4) Hyperlipidemia: stop all medications (5) Hypertension: stop medications (6) Paroxysmal A-fib: tachycardic in 120's stop all medications except metoprolol 75mg BID (7) Sore throat: no white plaques on exam erythema on upper palate and uvula pain is better off high flow, it may have just been dryness CDL TEAM TRUCK DRIVER, family with him Total Time Total Time Spent Total Time Spent (In Minutes): 38 Total Time Includes: Examination of the Patient and Other (visited with patient twice today, long visit with family, pronounced patient, certificate) Discharge Plan Discharge Items Patient Disposition: Other Date/Time: 11/16/21 16:24 Coding Level of Care Code D/C DAY MANAGEMENT >30 MINS Diagnoses COVID-19 U07.1 Respiratory failure J96.21 Chronicity: acute on chronic Respiratory failure complication: hypoxia Mild aortic stenosis I35.0 Hyperlipidemia E78.5 Hypertension I10 Paroxysmal A-fib I48.0 Sore throat J02.9
--- NOTE | 2021-11-16 16:59 | Death Pronouncement Note ---
Date of Service November 16, 2021 Pronouncement Note Admission Date Admission Date: November 11, 2021 Date and Time of Date of : 11/16/21 Time of : 16:24 PCOD Preliminary cause of : COVID-19 Contributing Factors (1) COVID-19: (2) Respiratory failure: (3) Mild aortic stenosis: (4) Hyperlipidemia: (5) Hypertension: (6) Paroxysmal A-fib: (7) Sore throat: Additional Data Confirmation of : no pulse, no respirations, no heart sounds and pupils fixed and dilated Family: at bedside Attending physician: Primitivo Diaz DO Coding Level of Care Code None Diagnoses COVID-19 U07.1 Respiratory failure J96.21 Chronicity: acute on chronic Respiratory failure complication: hypoxia Mild aortic stenosis I35.0 Hyperlipidemia E78.5 Hypertension I10 Paroxysmal A-fib I48.0 Sore throat J02.9
[2021-11-20 22:02] LABS: Fungitell (1-3)-B-D-Glucan 50 pg/mL
== END 2021-11-16 18:37 | disposition expired | DRG 177 ==
LOC: ED 13:16 → SUATTDRO 17:10 → 2E 17:10 → 2S 11-14 10:41 → 3E 11-16 15:03